=== PATIENT | male | born 1970 | race Caucasian/White ===

== ENCOUNTER 2019-04-24 15:46 | Emergency (ER) | payer OTHER ==
[~2019-04-24] VITALS: Ht 177.8 cm; Wt 84.1 kg
--- NOTE | 2019-04-24 16:24 | ED General ---
General Chief Complaint: Dizziness/Syncope Stated Complaint: LOW BP Source of Information: Patient History of Present Illness Date Seen by Provider: Apr 24, 2019 Time Seen by Provider: 16:19 Initial Comments 48-year-old male apparently has a history of episodic orthostatic hypotension going back at least months if not years Today he was at work he had visual loss and feeling lightheaded sounds like he had a very near syncopal episode but not total loss of consciousness went to the clinic had brief syncope there, sent to ER says he used to have pretty severe chronic diarrhea but has not had that rec ently he's had no nausea vomiting says he's been eating and drinking normally he has not had chest pain shortness of breath palpitations there's been no seizure activity witnessed here on orthostats his standing BP drops though pulse unchanged Allergies and Home Medications Allergies Coded Allergies: prednisolone (Verified Allergy, Unknown, 04/24/19) Patient Home Medication List Home Medication List Reviewed: Yes Review of Systems Review of Systems Constitutional: dizziness; No fever EENTM: vision loss (transient) Respiratory: no symptoms reported Cardiovascular: no symptoms reported Gastrointestinal: no symptoms reported Past Syxemgh-Ivvyck-Ntdecm Hx Patient Social History Recent Foreign Travel: No Contact w/Someone Who Travel: No Physical Exam Vital Signs Vital Signs - First Documented 04/24/19 15:50 Temp 36.4 Pulse 82 Resp 16 B/P (MAP) 143/77 (99) Pulse Ox 98 O2 Delivery Room Air Capillary Refill : Height, Weight, BMI Height: '" Weight: lbs. oz. kg; BMI Method: General Appearance: No Apparent Distress, WD/WN Eyes: Bilateral Eye PERRL, Bilateral Eye EOMI HEENT: Moist Mucous Membranes Neck: Non Tender, Supple Respiratory: Lungs Clear Cardiovascular: Regular Rate, Rhythm Gastrointestinal: Normal Bowel Sounds, Non Tender Progress/Results/Core Measures Suspected Sepsis SIRS Temperature: Pulse: Respiratory Rate: Laboratory Tests 04/24/19 16:10: White Blood Count 12.7H Blood Pressure / Mean: Laboratory Tests 04/24/19 16:10: Creatinine 0.93, Platelet Count 174, Total Bilirubin 0.5 Results/Orders Lab Results Laboratory Tests Test 04/24/19 16:10 04/24/19 16:27 Range/Units White Blood Count 12.7 H 4.3-11.0 10^3/uL Red Blood Count 3.81 L 4.35-5.85 10^6/uL Hemoglobin 11.6 L 13.3-17.7 G/DL Hematocrit 33 L 40-54 % Mean Corpuscular Volume 88 80-99 FL Mean Corpuscular Hemoglobin 30 25-34 PG Mean Corpuscular Hemoglobin Concent 35 32-36 G/DL Red Cell Distribution Width 12.7 10.0-14.5 % Platelet Count 174 130-400 10^3/uL Mean Platelet Volume 10.0 7.4-10.4 FL Neutrophils (%) (Auto) 65 42-75 % Lymphocytes (%) (Auto) 26 12-44 % Monocytes (%) (Auto) 6 0-12 % Eosinophils (%) (Auto) 2 0-10 % Basophils (%) (Auto) 1 0-10 % Neutrophils # (Auto) 8.3 H 1.8-7.8 X 10^3 Lymphocytes # (Auto) 3.3 1.0-4.0 X 10^3 Monocytes # (Auto) 0.8 0.0-1.0 X 10^3 Eosinophils # (Auto) 0.2 0.0-0.3 10^3/uL Basophils # (Auto) 0.1 0.0-0.1 10^3/uL Sodium Level 139 135-145 MMOL/L Potassium Level 4.6 3.6-5.0 MMOL/L Chloride Level 101 98-107 MMOL/L Carbon Dioxide Level 27 21-32 MMOL/L Anion Gap 11 5-14 MMOL/L Blood Urea Nitrogen 24 H 7-18 MG/DL Creatinine 0.93 0.60-1.30 MG/DL Estimat Glomerular Filtration Rate > 60 BUN/Creatinine Ratio 26 Glucose Level 222 H 70-105 MG/DL Calcium Level 9.4 8.5-10.1 MG/DL Corrected Calcium 9.5 8.5-10.1 MG/DL Total Bilirubin 0.5 0.1-1.0 MG/DL Aspartate Amino Transf (AST/SGOT) 17 5-34 U/L Alanine Aminotransferase (ALT/SGPT) 21 0-55 U/L Alkaline Phosphatase 117 40-136 U/L Total Protein 6.9 6.4-8.2 GM/DL Albumin 3.9 3.2-4.5 GM/DL Glucometer 206 H 70-110 MG/DL My Orders Orders - JAMES SAHA MD Iv Heplock-Insert (Order) (04/24/19 15:48) Accucheck Stat ONCE (04/24/19 15:48) Cbc With Automated Diff (04/24/19 15:48) Comprehensive Metabolic Panel (04/24/19 15:48) Ekg Tracing (04/24/19 15:48) Hearing Aid Repair Technician (04/24/19 15:48) Orthostatic Vital Signs (Adult (04/24/19 16:13) Ns Iv 1000 Ml (Sodium Chloride 0.9%) (04/24/19 17:45) Vital Signs/I&O 04/24/19 04/24/19 15:50 16:28 Temp 36.4 Pulse 82 82 80 84 Resp 16 B/P (MAP) 143/77 (99) 139/75 (96) 108/68 (81) 76/54 (61) Pulse Ox 98 O2 Delivery Room Air Capillary Refill : Progress Note : Progress Note Hemogram 11 6 white count 12,700 Patient says he's been told he is anemic in the past its normocytic with an MCV of 88 he's never been advised to take anything for that or have it checked out further he is quite certain that he has not had any dark or tarry stools melena hematemesis etc. glucose is 200 CMP otherwise negative ECG EKG : Comment EKG shows sinus rhythm and rate of 72 no acute changes normal intervals Departure Impression Primary Impression: Dizziness Additional Impression: Orthostatic hypotension Disposition: 01 HOME, SELF-CARE Condition: Improved Departure-Patient Inst. Decision time for Depature: 17:59 Referrals: FRED ROMERO APRN (PCP) Primary Care Physician Patient Instructions: Orthostatic Hypotension (DC) JAMES SAHA MD Apr 24, 2019 16:24 POS
[2019-04-24 16:28] VITALS: BP_SYST 108; BP_SYST 139; BP_SYST 76; BP_DIAS 54; BP_DIAS 68; BP_DIAS 75
[2019-04-24 16:58] LABS: BASOPHILS # (AUTO) 0.1 10^3/uL (0.0-0.1); BASOPHILS % (AUTO) 1 % (0-10); EOSINOPHILS # (AUTO) 0.2 10^3/uL (0.0-0.3); EOSINOPHILS % (AUTO) 2 % (0-10); HEMATOCRIT 33 % (40-54); HEMOGLOBIN 11.6 G/DL (13.3-17.7); LYMPHOCYTES # (AUTO) 3.3 X 10^3 (1.0-4.0); LYMPHOCYTES % (AUTO) 26 % (12-44); MEAN CORPUSCULAR HEMOGLOBIN 30 PG (25-34); MEAN CORPUSCULAR HGB CONC 35 G/DL (32-36); MEAN CORPUSCULAR VOLUME 88 FL (80-99); MONOCYTES # (AUTO) 0.8 X 10^3 (0.0-1.0); MONOCYTES % (AUTO) 6 % (0-12); NEUTROPHILS # (AUTO) 8.3 X 10^3 (1.8-7.8); NEUTROPHILS % (AUTO) 65 % (42-75); PLATELET COUNT 174 10^3/uL (130-400); RED CELL DISTRIBUTION WIDTH 12.7 % (10.0-14.5); WHITE BLOOD COUNT 12.7 10^3/uL (4.3-11.0)
[2019-04-24 17:08] LABS: BUN/CREATININE RATIO 26; CARBON DIOXIDE 27 MMOL/L (21-32); CHLORIDE 101 MMOL/L (98-107); CREATININE SERUM 0.93 MG/DL (0.60-1.30); GFR ESTIMATED > 60; POTASSIUM 4.6 MMOL/L (3.6-5.0); SODIUM 139 MMOL/L (135-145)
[2019-04-24 17:09] LABS: ALANINE AMINOTRANSFERASE 21 U/L (0-55); ALBUMIN 3.9 GM/DL (3.2-4.5); ALKALINE PHOSPHATASE 117 U/L (40-136); BILIRUBIN,TOTAL 0.5 MG/DL (0.1-1.0); CALCIUM 9.4 MG/DL (8.5-10.1); GLUCOSE 222 MG/DL (70-105); TOTAL PROTEIN 6.9 GM/DL (6.4-8.2)
[2019-04-24] MEDS ORDERED: NS IV 1000 ML 1,000 ML IV SCH (17:45)
[2019-04-24 18:37] VITALS: BP 136/83
--- OUTSIDE RECORDS SUMMARY | 2019-05-18 15:31 | XMS REPORT | Continuity of Care Document ---
Author Organization Unknown POS Address Unknown SP Phone Unavailable SP Allergies Active Description Code Type Severity POS Reaction Onset Reported/Identified POS to Patient Clinical Status POS Yes prednisolone [id number] Drug Allergy SP Unknown N/A 04/24/2019 SP Medications There is no data. Problems Date Dx Coded Attending Type Code POS Diagnosed By POS 04/24/2019 JAMES SAHA MD Ot I95. 1 SP HYPOTENSION SP 04/24/2019 JAMES SAHA MD Ot R42 SP AND GIDDINESS SP 04/24/2019 JAMES SAHA MD Ot Z88. 8 SP STATUS TO OTH DRUG/MEDS/BIOL SUB SP Procedures There is no data. Results Test Result Range POS Complete blood count (CBC) with automate d white blood cell (WBC) differential - POS 16:10 Blood leukocytes automated count (number/volume) 12.7 10*3/uL POS 4.3-11.0 SP Blood erythrocytes automated count (number/volume) 3.81 10*6/uL SP 4.35-5.85 SP Venous blood hemoglobin measurement (mass/volume) 11.6 g/dL SP17.7 Blood hematocrit (volume fraction) 33 % 40-54 SP Automated erythrocyte mean corpuscular volume 88 [ foz_us] SP99 Automated erythrocyte mean corpuscular h emoglobin (mass per erythrocyte) SP 30 pg 25-34 SP Automated erythrocyte mean corpuscular h emoglobin concentration measurement SP 35 g/dL 32-36 SP Automated erythrocyte distribution width ratio 12. 7 % 10.0- SP Automated blood platelet count (count/volume) 174 10*3/uL SP400 Automated blood platelet mean volume measurement 10.0 [foz_us] SP 7.4-10.4 SP Automated blood neutrophils/100 leukocytes 65 % 42-75 SP Automated blood lymphocytes/100 leukocytes 26 % 12-44 SP Blood monocytes/100 leukocytes 6 % 0-12 SP Automated blood eosinophils/100 leukocytes 2 % 0-10 SP Automated blood basophils/100 leukocytes 1 % 0-10 SP Blood neutrophils automated count (number/volume) 8.3 10*3 SP7.8 Blood lymphocytes automated count (number/volume) 3.3 10*3 SP4.0 Blood monocytes automated count (number/volume) 0. 8 10*3 SP1.0 Automated eosinophil count 0.2 10*3/uL 0 .0-0.3 SP Automated blood basophil count (count/volume) 0.1 10*3/uL SP0.1 Comprehensive metabolic panel - 04/24/19 16:10 POS Serum or plasma sodium measurement (moles/volume) 139 mmol/L SP 135-145 SP Serum or plasma potassium measurement (moles/volume) 4.6 mmol/L SP 3.6-5.0 SP Serum or plasma chloride measurement (moles/volume) 101 mmol/L SP 98-107 SP Carbon dioxide 27 mmol/L 21-32 SP Serum or plasma anion gap determination (moles/volume) 11 mmol/L SP 5-14 SP Serum or plasma urea nitrogen measurement (mass/volume ) 24 mg/dL SP 7-18 SP Serum or plasma creatinine measurement (mass/volume) 0.93 mg/dL SP 0.60-1.30 SP Serum or plasma urea nitrogen/creatinine mass ratio 26 NRG SP Serum or plasma creatinine measurement w ith calculation of estimated glomerular SP rate > NRG SP Serum or plasma glucose measurement (mass/volume) 222 mg/dL SP105 Serum or plasma calcium measurement (mass/volume) 9.4 mg/dL SP10.1 Serum or plasma total bilirubin measurement (mass/volu me) 0.5 mg/dL SP 0.1-1.0 SP Serum or plasma alkaline phosphatase stephane surement (enzymatic activity/volume) SP 117 U/L 40-136 SP Serum or plasma aspartate aminotransfera se measurement (enzymatic SP 17 U/L 5-34 SP Serum or plasma alanine aminotransferase measurement (enzymatic activity/volume) SP 21 U/L 0-55 SP Serum or plasma protein measurement (mass/volume) 6.9 g/dL SP8.2 Serum or plasma albumin measurement (mass/volume) 3.9 g/dL SP4.5 CALCIUM CORRECTED 9.5 mg/dL 8.5-10.1 SP Capillary blood glucose measurement by g lucometer (mass/volume) - 04/24/19 16:27 POS Capillary blood glucose measurement by glucometer (mas s/volume) 206 POS 70-110 SP Encounters ACCT No. Visit Date/Time Discharge Status POS Pt. Type Provider Facility Loc./Un it POS Complaint POS [id number] 04/24/2019 15:47:00 019 18:35:00 SP DIS Emergency MARIA A RIVERA, JAMES URBINA - [place] [facility] FS LOW BP SP
== END 2019-04-24 18:35 | disposition home or self-care (01) ==
LOC: ER FS 15:47
DX: I95.1 Orthostatic hypotension (principal); Z88.8 Allergy status to other drugs, medicaments and biological substances
CPT/HCPCS: 36415; 80053; 82962; 85025; 93005; 96360

== ENCOUNTER → 2020-06-08 | Outpatient (CLI) | payer OTHER | LOC: WOUNDCARE 12:49 | PROVIDERS: ATTEND Surgery | DX: L84 Corns and callosities (principal); E11.42 Type 2 diabetes mellitus with diabetic polyneuropathy; E11.65 Type 2 diabetes mellitus with hyperglycemia; I70.203 Unspecified atherosclerosis of native arteries of extremities, bilateral legs | CPT/HCPCS: 99214 ==

== ENCOUNTER → 2020-06-14 | Outpatient (CLI) | payer OTHER | LOC: WOUNDCARE 15:11 | PROVIDERS: ATTEND Surgery | DX: L84 Corns and callosities (principal); E11.65 Type 2 diabetes mellitus with hyperglycemia; E11.42 Type 2 diabetes mellitus with diabetic polyneuropathy; I70.203 Unspecified atherosclerosis of native arteries of extremities, bilateral legs | CPT/HCPCS: 99212 ==

== ENCOUNTER → 2020-09-05 | Outpatient (CLI) | payer OTHER | LOC: WOUNDCARE 12:57 | PROVIDERS: ATTEND Surgery | DX: L84 Corns and callosities (principal) | CPT/HCPCS: 99212 ==

== ENCOUNTER → 2020-09-05 | Outpatient (CLI) | payer OTHER ==
[2020-09-05 09:22] LABS: BUN/CREATININE RATIO 24; CARBON DIOXIDE 29 MMOL/L (21-32); CHLORIDE 96 MMOL/L (98-107); GFR ESTIMATED > 60; POTASSIUM 4.5 MMOL/L (3.6-5.0); SODIUM 134 MMOL/L (135-145)
[2020-09-05 09:26] LABS: GLUCOSE 406 MG/DL (70-105)
[2020-09-05 09:27] LABS: ALANINE AMINOTRANSFERASE 13 U/L (0-55); ALBUMIN 3.7 GM/DL (3.2-4.5); ALKALINE PHOSPHATASE 132 U/L (40-136); BILIRUBIN,TOTAL 0.2 MG/DL (0.1-1.0); CALCIUM 9.2 MG/DL (8.5-10.1); TOTAL PROTEIN 6.6 GM/DL (6.4-8.2)
[2020-09-05 15:09] LABS: CHOLESTEROL 215 MG/DL (< 200); HDL CHOLESTEROL 26 MG/DL (40-60); TRIGLYCERIDES 509 MG/DL (<150); VLDL CHOLESTEROL 102 MG/DL (5-40)
== END ==
LOC: LAB FS 08:24
PROVIDERS: ATTEND Internal Medicine Cardiovascular Disease
DX: E78.2 Mixed hyperlipidemia (principal)
CPT/HCPCS: 36415; 80053; 80061

== ENCOUNTER → 2020-09-28 | Outpatient (CLI) | payer OTHER | LOC: CARD 11:14 | PROVIDERS: ATTEND Internal Medicine Cardiovascular Disease | DX: I11.9 Hypertensive heart disease without heart failure (principal) | CPT/HCPCS: 93306 ==

== ENCOUNTER → 2020-11-02 | Outpatient (CLI) | payer OTHER | LOC: CARD 14:05 | PROVIDERS: ATTEND Physician Assistant | DX: R07.9 Chest pain, unspecified (principal) ==

== ENCOUNTER → 2020-12-22 | Outpatient (CLI) | payer OTHER ==
--- NOTE | 2020-12-22 17:13 | Diagnostic Imaging Report ---
PROCEDURE: MR imaging left lower extremity without contrast. TECHNIQUE: Multiplanar, multisequence non contrast enhanced MR imaging of the left lower extremity was accomplished. INDICATION: Plantar ulcer at the base of the 3rd MTP joint. COMPARISON: None available. FINDINGS: The small superficial plantar ulcer measures approximately 9 x 7 mm with a shallow base. There is no associated T2 hyperintense abscess or sinus tract. No T1 hypointense marrow replacement or T2 hyperintense bone marrow edema signal that would indicate osteomyelitis. No intermetatarsal fluid collection. There is a small superficial fluid collection along the plantar surface of the medial sesamoid likely due to adventitial bursa formation. IMPRESSION: 1. No osteomyelitis within the forefoot. 2. No abscess associated with the small shallow ulcer at the plantar aspect of the 3rd MTP joint. 3. Incidental note of a small adventitial bursa superficial to the medial hallux sesamoid. Dictated by: Dictated on workstation # [id number]
== END ==
LOC: RAD 14:45
PROVIDERS: ATTEND Podiatrist Foot & Ankle Surgery
DX: L97.829 Non-pressure chronic ulcer of other part of left lower leg with unspecified severity (principal); L03.116 Cellulitis of left lower limb; E11.40 Type 2 diabetes mellitus with diabetic neuropathy, unspecified

== ENCOUNTER → 2021-01-19 | Outpatient (CLI) | payer OTHER | LOC: WOUNDCARE 12:45 | PROVIDERS: ATTEND Surgery | DX: E11.621 Type 2 diabetes mellitus with foot ulcer (principal); E11.42 Type 2 diabetes mellitus with diabetic polyneuropathy; L97.522 Non-pressure chronic ulcer of other part of left foot with fat layer exposed; I70.245 Atherosclerosis of native arteries of left leg with ulceration of other part of foot; E11.65 Type 2 diabetes mellitus with hyperglycemia; T65.222D Toxic effect of tobacco cigarettes, intentional self-harm, subsequent encounter; F17.218 Nicotine dependence, cigarettes, with other nicotine-induced disorders | CPT/HCPCS: A6260; G0463; 99213 ==

== ENCOUNTER → 2021-01-27 | Outpatient (CLI) | payer OTHER | LOC: WOUNDCARE 07:51 | PROVIDERS: ATTEND Orthopaedic Surgery Hand Surgery | DX: E11.621 Type 2 diabetes mellitus with foot ulcer (principal); E11.42 Type 2 diabetes mellitus with diabetic polyneuropathy; L97.522 Non-pressure chronic ulcer of other part of left foot with fat layer exposed; I70.245 Atherosclerosis of native arteries of left leg with ulceration of other part of foot; E11.65 Type 2 diabetes mellitus with hyperglycemia; T65.222D Toxic effect of tobacco cigarettes, intentional self-harm, subsequent encounter; E11.52 Type 2 diabetes mellitus with diabetic peripheral angiopathy with gangrene; F17.218 Nicotine dependence, cigarettes, with other nicotine-induced disorders | CPT/HCPCS: 11042; G0463 ==

== ENCOUNTER 2021-02-08 10:28 | Day surgery (SDC) | payer OTHER ==
[2021-02-08] VITALS (15 sets, daily range): BP systolic 108–157; BP diastolic 73–88
[~2021-02-08] VITALS: Ht 175 cm; Wt 8.3 kg
[2021-02-08] MEDS ORDERED: LIDOCAINE 1% INJ 20 ML 20 ML VIAL ONE (10:48)
[2021-02-08] MEDS ORDERED: NS IV 1000 ML 1,000 ML ONE (10:48)
[2021-02-08] MEDS ORDERED: HEParin (CATH LAB) 2,000 ML IV ONE (10:48)
[2021-02-08] MEDS ORDERED: NS IV 1000 ML 1,000 ML IV SCH (11:15)
[2021-02-08] MEDS ORDERED: diphenhydrAMINE 50 MG/ML INJ (BENADRYL) ONE (11:18)
[2021-02-08 11:25] LABS: HEMATOCRIT 38 % (40-54); HEMOGLOBIN 13.1 g/dL (13.3-17.7); MEAN CORPUSCULAR HEMOGLOBIN 30 pg (25-34); MEAN CORPUSCULAR HGB CONC 34 g/dL (32-36); MEAN CORPUSCULAR VOLUME 87 fL (80-99); MEAN PLATELET VOLUME 9.7 fL (9.0-12.2); PLATELET COUNT 231 10^3/uL (130-400); WHITE BLOOD COUNT 12.7 10^3/uL (4.3-11.0)
[2021-02-08] MEDS ORDERED: METF-865 PO (11:26)
[2021-02-08] MEDS ORDERED: CLOP75TA28 PO (11:26)
[2021-02-08] MEDS ORDERED: RT-ALBUINH IH (11:26)
[2021-02-08] MEDS ORDERED: SIMV40TA25 PO (11:26)
[2021-02-08] MEDS ORDERED: INSU100I34 SQ (11:26)
[2021-02-08] MEDS ORDERED: ASPI-1238 PO (11:26)
[2021-02-08] MEDS ORDERED: OMEP40CA6 PO (11:26)
[2021-02-08] MEDS ORDERED: MTP25TSR PO (11:26)
[2021-02-08] MEDS ORDERED: LISI2.5T13 PO (11:26)
[2021-02-08] MEDS ORDERED: GABA300C PO (11:26)
[2021-02-08 11:36] LABS: INR 1.1 (0.8-1.4); PROTHROMBIN TIME PATIENT 14.7 SEC (12.2-14.7)
--- NOTE | 2021-02-08 11:36 | Diagnostic Imaging Report ---
EXAMINATION: Chest 1 view HISTORY: History of smoking, preprocedural evaluation COMPARISON: None available. FINDINGS: Heart size and pulmonary vasculature are normal. The lungs are clear without consolidation, pleural effusion, or pneumothorax. Degenerative changes of the thoracic spine. Osseous structures are otherwise intact. IMPRESSION: 1. No acute radiographic abnormality in the chest. Dictated by: Dictated on workstation # [id number]
[2021-02-08 11:47] LABS: ALBUMIN 3.7 GM/DL (3.2-4.5); BILIRUBIN,TOTAL 0.5 MG/DL (0.1-1.0); CREATININE SERUM 1.1 MG/DL (0.60-1.30); POTASSIUM 4.5 MMOL/L (3.6-5.0); TOTAL PROTEIN 6.8 GM/DL (6.4-8.2)
[2021-02-08] MEDS ORDERED: inSUlin (REGULAR) HUMAN 1 UNIT/0.01 ML (CHARGE PER UNIT) ONE (11:55)
[2021-02-08] MEDS ORDERED: inSUlin (REGULAR) HUMAN 1 UNIT/0.01 ML (CHARGE PER UNIT) SC ONE (12:00)
[2021-02-08] MEDS ORDERED: fentaNYL INJ 100 MCG/2 ML AMP ONE ×2 (12:02→12:53)
[2021-02-08] MEDS ORDERED: MIDAZOLAM 5 MG/5 ML (VERSED) VIAL ONE ×2 (12:02→12:53)
[2021-02-08] MEDS ORDERED: HEParin 1000 UNIT/ML (10ML VIAL) FOR BOLUS ONE (12:42)
[2021-02-08] MEDS ORDERED: NITRO DRIP 25000 MCG/D5W 250 ML IV ONE (12:52)
[2021-02-08] MEDS ORDERED: ASPIRIN 325 MG (5 GR) TABLET ONE (13:44)
[2021-02-08] MEDS ORDERED: CLOPIDOGREL 300 MG (PLAVIX) TABLET PO ONE (13:45)
[2021-02-08] MEDS ORDERED: PATIENT MAY USE OWN MEDS, ALL PO SCH (14:00)
[2021-02-08] MEDS ORDERED: RT-ALBUTEROL SULF 2.5 MG/3 ML PRE-MIX VIAL IH PRN (14:00)
--- NOTE | 2021-02-08 14:02 | Conscious Sedation/ASA ---
Conscious Sedation Pre-Proced Time 12:00 ASA Score 3 For ASA 3 and 4: Consider anesthesia and medical clearance. Also, for patients with a history of failed moderate sedation consider anesthesia. Airway Lungs Heart ASA score ASA 1: a normal healthy patient ASA 2: a patient with a mild systemic disease (mid diabetes, controlled hypertension, obesity x ASA 3: a patient with a severe systemic disease that limits activity (angina, COPD, prior Myocardial infarction) ASA 4: a patient with an incapacitating disease that is a constant threat to life (CHF, renal failure) ASA 5: a moribund patient not expected to survive 24 hrs. (ruptured aneurysm) ASA 6: a declared brain- patient whose organs are being harvested. For emergent operations, add the letter E after the classification Mallampati Classification Grade 3 Sedation Plan Analgesia, Amnesia, Plan communicated to team members, Discussed options with patient/fam, Discussed risks with patient/fam The patient is an appropriate candidate to undergo the planned procedure, sedation, and anesthesia. The patient immediately re-assessed prior to indication. ANSELMO DAVID MD Feb 08, 2021 14:02
--- NOTE | 2021-02-08 14:12 | Peripheral Report ---
Peripheral Report Physician (s)/[place] Marina (s) Physician ANSELMO DAVID MD Pre-Procedure Diagnosis Pre-Procedure Diagnosis: Critical limb ischemia Post-Procedure Note Procedure Start Date: Feb 08, 2021 Name of Procedure: Abdominal aortogram with bilateral runoff Third order Additional imaging x3 Stent to the left SFA DE ICER INSTALLER to the left posterior tibial DE ICER INSTALLER to the left peroneal DE ICER INSTALLER to the left anterior tibial Findings/Procedure Note PROCEDURE NOTE: 50 years old gentleman with severe peripheral arterial disease, had intervention done in [place] in the past, referred to me due to critical limb ischemia and 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 SALENA was abnormal After explaining the procedure to the patient, all pros and cons were explained, all questions were answered. The patient signed the consent and then he was placed on the cardiac catheterization laboratory. The patient was placed on the cardiac catheterization laboratory. Groin was prepped SL fashion local anesthesia was used. Sheath placed in the right femoral artery, runoff to the right leg was done through the sheath. I used a rim catheter to cross over the next change it to long straight catheter placed in the left proximal SFA and runoff to the left leg was done then advanced into the distal SFA and placed at the trifurcation and angiogram was done at the level of the trifurcation then at the level of the foot. Intervention was initiated. Patient was given 6000 units of heparin, sheath was exchanged into 6 [place] 55 cm sheath, I started with advancement of a command 18 in the posterior tibial artery and did balloon angioplasty using 3 x 40 to the posterior tibial artery and tibioperoneal trunk then catheter was removed and I advanced mini 18 catheter to the tibioperoneal trunk and did angiogram then advance it into the peroneal artery and did angiogram then I used command 14 wi re and advanced it in the peroneal artery then placed 2 x 120 [place] balloon and did 2 inflation in the peroneal artery then retracted the balloon and advanced command wire to the anterior tibial artery and used the same balloon to do another 2 inflation in the anterior tibial artery, nitroglycerin was given then repeat angiogram showed excellent results, I reevaluated the lesion in the SFA and decided to proceed with intervention did predilatation with 6 x 60 balloon then deployed superior 6 x 40 and angiogram showed excellent results. The sheath was exchanged again to a short 6 [place] sheath then I advanced pigtail catheter to the abdominal aorta just above the bifurcation and did angiogram to evaluate the bifurcation. At the end of the procedure sheath was removed, closure device deployed. FINDINGS: Left lower extremity: Mild atherosclerotic plaques in the left common iliac and left common femoral artery nonobstructive disease. Severe stenosis in the mid left SFA with successful deployment of superior 6 x 40 with excellent results Severe stenosis at the left tibioperoneal trunk with successful balloon angioplasty using [place] 3 x 60 Severe stenosis at the left posterior tibial artery with successful balloon angioplasty using [place] 3 x 60 Subtotal occlusion of the left peroneal artery with successful balloon angioplasty using [place] 2 x 120 Subtotal occlusion of the left anterior tibial artery with successful balloon angioplasty using [place] 2 x 120. Post intervention there was brisk flow down to the foot with some recoiling at the tibial arteries Right lower extremity: Atherosclerotic plaques in the right common iliac and common femoral artery nonobstructive disease Totally occluded stent in the mid right SFA reconstructed by collaterals with slow flow down to the trifurcation CONCLUSIONS: 1. Successful complex intervention using stent superior 6 x 40 to the mid SFA and balloon angioplasty to the tibioperoneal trunk, posterior tibial, peroneal artery and anterior tibial arteries of the left leg with excellent results 2. Totally occluded stent in the mid right SFA reconstructed by collateral with slow flow will require intervention at a later point 3. Calcification in the abdominal aorta and the bifurcation, nonobstructive disease DISCUSSION AND RECOMMENDATIONS: Continue to maximize medical therapy, discussed smoking cessation and compliance with medication and tight diabetic control in addition patient will require another evaluation and intervention on the right leg Anesthesia Type: Conscious Sedation Estimated blood loss (mL): 35 ml Contrast Amount: 110 ml Total Radiation Dose: 312 mGy Post-Procedure Diagnosis Post-operative diagnosis: Critical limb ischemia Peripheral arterial disease Hypertension Hyperlipidemia ANSELMO DAVID MD Feb 08, 2021 14:12
[2021-02-08] MEDS: NS IV 1000 ML 1,000 ML IV SCH ×2 (14:21→17:07)
[2021-02-08] MEDS: inSUlin ASPART (NovoLOG) 1 UNIT/0.01 ML (CHARGE PER UNIT) SC SCH ×2 (16:44→21:00)
[2021-02-08] MEDS ORDERED: GABAPENTIN 300 MG (NEURONTIN) CAP PO SCH (21:00)
[2021-02-09] MEDS ORDERED: NON-FORMULARY MEDICATION 1 EA EA (Omeprazole 40 MG) PO SCH (09:00)
[2021-02-09] MEDS ORDERED: lisINopril 5 MG (PRINIVIL) TABLET PO SCH (09:00)
[2021-02-09] MEDS ORDERED: PANTOPRAZOLE 40 MG (PROTONIX) TAB PO SCH (09:00)
[2021-02-09] MEDS ORDERED: ASPIRIN E.C. 81 MG (ECOTRIN) TAB PO SCH (09:00)
[2021-02-09] MEDS ORDERED: CLOPIDOGREL 75 MG (PLAVIX) TABLET PO SCH (09:00)
[2021-02-09] MEDS ORDERED: SIMvastatin 40 MG (ZOCOR) TAB PO SCH (09:00)
[2021-02-09] MEDS ORDERED: NON-FORMULARY MEDICATION 1 EA EA (Lisinopril 2.5 MG) PO SCH (09:00)
[2021-02-22] MEDS ORDERED: ASPI-999 PO (09:18)
== END 2021-02-08 21:10 | disposition left against medical advice (07) ==
LOC: CATH 10:28 → CSD 14:05 → CATH 21:10
PROVIDERS: ATTEND Internal Medicine Cardiovascular Disease
DX: I70.229 Atherosclerosis of native arteries of extremities with rest pain, unspecified extremity (principal); T82.856A Stenosis of peripheral vascular stent, initial encounter; I70.0 Atherosclerosis of aorta; I77.1 Stricture of artery; I10 Essential (primary) hypertension; E78.5 Hyperlipidemia, unspecified; E11.9 Type 2 diabetes mellitus without complications; I65.23 Occlusion and stenosis of bilateral carotid arteries; H54.40 Blindness, one eye, unspecified eye; E78.2 Mixed hyperlipidemia; F17.210 Nicotine dependence, cigarettes, uncomplicated; Z79.02 Long term (current) use of antithrombotics/antiplatelets; Z79.84 Long term (current) use of oral hypoglycemic drugs; Z83.3 Family history of diabetes mellitus
CPT/HCPCS: 36247; 36248; 37228; 37232; 71045; 75716; 80053; 80061; 82947; 85027; 85610; 85730; 87081; C1725 ×3; C1760; C1769; C1876; C1887 ×2; C1894 ×2; 36415

== ENCOUNTER 2021-02-15 13:13 | Observation (INO) | payer OTHER ==
[~2021-02-15] VITALS: Ht 177.8 cm; Wt 81.6 kg
[~2021-02-15 13:13] MED LIST: ASPI-1238 PO; CLOP75TA28 PO; GABA300C PO; INSU100I34 SQ; LISI2.5T PO; METF-865 PO; MTP25TSR PO; OMEP40CA6 PO; RT-ALBUINH IH; SIMV40TA25 PO
--- NOTE | 2021-02-15 13:42 | ED General ---
General Chief Complaint: Neuro-Stroke Like Symptoms Stated Complaint: STROKE LIKE SYMPTOMS Source of Information: Patient, Old Records, Spouse History of Present Illness Date Seen by Provider: Feb 15, 2021 Time Seen by Provider: 13:15 Initial Comments 50-year-old male presenting by private vehicle with complaints of right-sided weakness present since approximately 5 PM on 14 February. He states he will think of similar symptoms he comes back. He was still having symptoms this afternoon and was brought to the emergency department. He did have a fall on the at home. He denies any anxiety. He has been more sleepy recently. He recently had stenting of his leg to help with peripheral vascular disease. He has a stent in his right leg that has collateral blood flow but will still need to be managed because he has complete blockage of the stent itself. He denies chest pain, headache, vision change, nausea, vomiting. He has decreased sensation to right arm and leg compared to the left Timing/Duration: 12-24 Hours (since about 1700 on 02/14) Associated Systoms: No Chest Pain; Cough (intermittent); No Diaphoresis, No Fever/Chills, No Headaches, No Loss of Appetite; Malaise; No Nausea/Vomiting, No Rash, No Seizure, No Shortness of Air, No Syncope; Weakness (right sided) Allergies and Home Medications Allergies Coded Allergies: Fish Containing Products (Verified Allergy, Severe, 02/08/21) "BLACKS OUT" lidocaine (Verified Allergy, Unknown, 02/08/21) FACE SWELLS FROM DENTAL PROCEDURE prednisolone (Verified Allergy, Unknown, 04/24/19) Home Medications Albuterol Sulfate 1 Puff Puff, 1-2 PUFF IH Q4H PRN for SHORTNESS OF BREATH, (Reported) Aspirin 81 Mg Tablet.dr, 81 MG PO DAILY, (Reported) Clopidogrel Bisulfate 75 Mg Tablet, 75 MG PO DAILY, (Reported) Gabapentin 300 Mg Capsule, 300 MG PO HS, (Reported) Insulin Glargine,Hum.rec.anlog 100 Unit/1 Ml Insuln.pen, 6 UNIT SQ DAILY, (Reported) Lisinopril 2.5 Mg Tablet, 2.5 MG PO DAILY, (Reported) Metformin HCl 500 Mg Tab.er.24h, 500 MG PO BID, (Reported) Metoprolol Succinate 25 Mg Tab.er.24h, 25 MG PO DAILY, (Reported) Omeprazole 40 Mg Capsule.dr, 40 MG PO DAILY, (Reported) Simvastatin 40 Mg Tablet, 40 MG PO DAILY, (Reported) Patient Home Medication List Home Medication List Reviewed: Yes Review of Systems Review of Systems Constitutional: see HPI EENTM: see HPI Respiratory: see HPI Cardiovascular: see HPI Gastrointestinal: see HPI Genitourinary: no symptoms reported Musculoskeletal: other (bilateral leg pains from recent procedures) Psychiatric/Neurological: Paresthesia (decreased sensation right arm and leg compared to the left), Weakness (right arm and leg) Past Krwluhu-Glxibt-Rtgwwg Hx Seasonal Allergies Seasonal Allergies: No Past Medical History Surgery/Hospitalization HX: EYE SX X2, LEFT RING FINGER AMPUTATION, 2 PREVIOUS STENTS Surgeries: Yes (finger amputation, eye surgery) Respiratory: No Cardiac: No Neurological: No Genitourinary: No Gastrointestinal: No Musculoskeletal: No Endocrine: Yes Diabetes, Insulin dep HEENT: No Cancer: No Psychosocial: No Integumentary: No Physical Exam Vital Signs Vital Signs - First Documented 02/15/21 13:20 Temp 36.6 Pulse 89 Resp 16 B/P (MAP) 133/89 (104) Pulse Ox 99 O2 Delivery Room Air Capillary Refill : Height, Weight, BMI Height: '" Weight: lbs. oz. kg; 27.10 BMI Method: General Appearance: Chronically ill HEENT: PERRL/EOMI; No Pharynx Normal (poor dentition) Neck: Full Range of Motion, Supple; No Carotid Bruit Respiratory: Chest Non Tender, Lungs Clear, Normal Breath Sounds Cardiovascular: Regular Rate, Rhythm, Normal Peripheral Pulses Gastrointestinal: Normal Bowel Sounds, No Pulsatile Mass, Non Tender, Soft Extremity: Pedal Edema (1+ BLE), Slow Capillary Refill, Other (tender to palpation left leg from recent stenting) Neurologic/Psychiatric: Alert, Oriented x3, Facial Droop (right side), Motor Weakness, Sensory Deficit Skin: Warm/Dry Progress/Results/Core Measures Suspected Sepsis SIRS Temperature: Pulse: Respiratory Rate: Laboratory Tests 02/15/21 13:25: White Blood Count 6.5 Blood Pressure / Mean: Laboratory Tests 02/15/21 13:25: Creatinine 1.17, INR Comment 1.1, Platelet Count 192, Total Bilirubin 0.3 Results/Orders Lab Results Laboratory Tests Test 02/15/21 13:24 02/15/21 13:25 Range/Units Glucometer 324 H 70-110 MG/DL White Blood Count 6.5 4.3-11.0 10^3/uL Red Blood Count 3.98 L 4.30-5.52 10^6/uL Hemoglobin 11.7 L 13.3-17.7 g/dL Hematocrit 35 L 40-54 % Mean Corpuscular Volume 87 80-99 fL Mean Corpuscular Hemoglobin 29 25-34 pg Mean Corpuscular Hemoglobin Concent 34 32-36 g/dL Red Cell Distribution Width 13.3 10.0-14.5 % Platelet Count 192 130-400 10^3/uL Mean Platelet Volume 9.5 9.0-12.2 fL Immature Granulocyte % (Auto) 1 % Neutrophils (%) (Auto) 56 42-75 % Lymphocytes (%) (Auto) 28 12-44 % Monocytes (%) (Auto) 14 H 0-12 % Eosinophils (%) (Auto) 1 0-10 % Basophils (%) (Auto) 1 0-10 % Neutrophils # (Auto) 3.7 1.8-7.8 X 10^3 Lymphocytes # (Auto) 1.8 1.0-4.0 X 10^3 Monocytes # (Auto) 0.9 0.0-1.0 X 10^3 Eosinophils # (Auto) 0.0 0.0-0.3 10^3/uL Basophils # (Auto) 0.0 0.0-0.1 10^3/uL Immature Granulocyte # (Auto) 0.0 0.0-0.1 10^3/uL Neutrophils % (Manual) 52 % Lymphocytes % (Manual) 18 % Monocytes % (Manual) 11 % Eosinophils % (Manual) 1 % Band Neutrophils 11 % Atypical Lymphocytes 7 % Blood Morphology Comment NORMAL Prothrombin Time 14.4 12.2-14.7 SEC INR Comment 1.1 0.8-1.4 Activated Partial Thromboplast Time 40 H 24-35 SEC Sodium Level 133 L 135-145 MMOL/L Potassium Level 4.2 3.6-5.0 MMOL/L Chloride Level 98 98-107 MMOL/L Carbon Dioxide Level 25 21-32 MMOL/L Anion Gap 10 5-14 MMOL/L Blood Urea Nitrogen 18 7-18 MG/DL Creatinine 1.17 0.60-1.30 MG/DL Estimat Glomerular Filtration Rate 66 BUN/Creatinine Ratio 15 Glucose Level 344 H 70-105 MG/DL Calcium Level 8.5 8.5-10.1 MG/DL Corrected Calcium 9.0 8.5-10.1 MG/DL Total Bilirubin 0.3 0.1-1.0 MG/DL Aspartate Amino Transf (AST/SGOT) 22 5-34 U/L Alanine Aminotransferase (ALT/SGPT) 14 0-55 U/L Alkaline Phosphatase 105 40-136 U/L Troponin I < 0.30 <0.30 NG/ML Total Protein 6.2 L 6.4-8.2 GM/DL Albumin 3.4 3.2-4.5 GM/DL My Orders Orders - EULALIA MACKAY MD Cbc With Automated Diff (02/15/21 13:27) Protime With Inr (02/15/21 13:27) Partial Thromboplastin Time (02/15/21 13:27) Comprehensive Metabolic Panel (02/15/21 13:27) Troponin I Fs (02/15/21 13:27) Ua Culture If Indicated (02/15/21 13:27) Chest 1 View Ap/Pa Only (02/15/21 13:27) Ekg Tracing (02/15/21 13:27) Nothing By Mouth (02/15/21 Lunch) Accucheck Stat ONCE (02/15/21 13:27) Ed Iv/Invasive Line Start (02/15/21 13:27) Vital Signs Stroke Patient Q15M (02/15/21 13:27) Ct Head Wo-R/O Stroke (02/15/21 13:27) O2 (02/15/21 13:27) Intake & Output 06,14,22 (02/15/21 13:27) Monitor-Rhythm Ecg Trace Only (02/15/21 13:27) Dysphagia Screening Tool (02/15/21 13:27) Drug Screen Stat (Urine) (02/15/21 13:30) Ct Angio Head/Neck (02/15/21 14:05) Iohexol Injection (Omnipaque 350 Mg/Ml 1 (02/15/21 14:15) Received Contrast (Hold Metformin- Contr (02/15/21 14:15) Sodium Chloride Flush (Catheter Flush Sy (02/15/21 14:15) Ns (Ivpb) (Sodium Chloride 0.9% Ivpb Bag (02/15/21 14:15) Manual Differential (02/15/21 13:25) Medications Given in ED Current Medications Medications Dose Ordered Sig/[place] Route Start Time Stop Time Status Last Admin Dose Admin Iohexol 100 ml ONCE ONCE IV 02/15/21 14:15 02/15/21 15:04 DC 02/15/21 14:29 75 ML Sodium Chloride 10 ml NEEDED PRN IV 02/15/21 14:15 02/15/21 14:29 10 ML Sodium Chloride 100 ml ONCE ONCE IV 02/15/21 14:15 02/15/21 15:04 DC 02/15/21 14:29 100 ML Vital Signs/I&O 02/15/21 13:20 Temp 36.6 Pulse 89 Resp 16 B/P (MAP) 133/89 (104) Pulse Ox 99 O2 Delivery Room Air Capillary Refill : Progress Note #1: Progress Note check CT scan of head to evaluate for stroke or hemorrhage. labs and ECG with CXR. Pt inconsistent with exam and with using his right arm and leg. he will try or start to use the arm and leg then lets them drop. not very cooperative with rest of exam. Progress Note #2: Progress Note CT head without acute process to account for his symptoms. Labs stable with hyperglycemia but no acute significant abnormality otherwise. Will add on CT angiogram of head and neck to look for large vessel disease or signs of clot that might be able to go to stroke center and have clot retrieval. NIHSS 11 but pt was not very cooperative with exam and was inconsistent in some of his interactions and testing. Progress Note #3: Progress Note CT angiogram of head and neck negative for large vessel occlusion. D/w dermatology nurse practitioner stroke neurologist at through the Consult line and she recommends MRI and admit for stroke work up. Plavix and aspirin for anti-platelet therapy. May need therapy if weakness becomes more persistent. 1601 d/w Dr. Woodruff dermatology nurse practitioner for [facility] and she accepted pt for observation stay to get MRI and further work up for stroke/TIA. By the time reviewed results and need for admit pt was moving his right arm and leg without difficulty but still felt it was a little numb. ECG Initial ECG Impression Date: Feb 15, 2021 Initial ECG Impression Time: 13:58 Initial ECG Rate: 85 Initial ECG Rhythm: Normal Sinus Initial ECG Comparisson: Unchanged Comment Normal sinus rhythm with a heart rate of 85 bpm. He does have tremoring artifact on the tracing. No acute ST elevation. QT interval 355 ms with a QTc interval 422 ms. Appears stable from prior tracings. Diagnostic Imaging Diagonstic Imaging: CT Plain Films/CT/US/NM/MRI: head Comments NAME: JENNIFER LAM [employer] REC#: [id number] PT STATUS: REG ER : 1970 PHYSICIAN: EULALIA MACKAY MD ADMIT DATE: 02/15/21/ER FS Draft Date of Exam:02/15/21 CT HEAD WO-R/O STROKE PROCEDURE: CT head without, r/o stroke. TECHNIQUE: Multiple contiguous axial images were obtained through the brain without the use of intravenous contrast. Auto Exposure Controls were utilized during the CT exam to meet ALARA standards for radiation dose reduction. INDICATION: Right-sided weakness. COMPARISON: No prior studies are available for comparison. FINDINGS: The ventricles and sulci are somewhat prominent for the patient's age, consistent with some mild cerebral atrophy. No sulcal effacement or midline shift is identified. No acute intra-axial or extra-axial hemorrhage is detected. The cisterns are patent. The visualized paranasal sinuses demonstrate some trace fluid in the maxillary sinuses bilaterally. There is opacification of multiple ethmoid air cells. IMPRESSION: 1. Paranasal sinus disease. 2. No acute intracranial process is detected. Dictated on workstation # [id number] Dict: 02/15/21 1349 Trans: 02/15/21 1352 [id number] Interpreted by: NINOSKA MENDEZ MD Electronically signed by: Diagonstic Imaging: Xray Plain Films/CT/US/NM/MRI: chest Comments [facility]. [place], [place] NAME: JENNIFER LAM [facility] REC#: [id number] PT STATUS: REG ER : 1970 PHYSICIAN: EULALIA MACKAY MD ADMIT DATE: 02/15/21/ER FS Signed Date of Exam:02/15/21 CHEST 1 VIEW AP/PA ONLY INDICATION: Cough and weakness. COMPARISON: Comparison made with prior examination from 02/08/2021. FINDINGS: The heart size, mediastinal configuration, and pulmonary vascularity are within normal limits. There is no pleural effusion, pneumothorax, or pneumonia. The osseous structures are unremarkable. IMPRESSION: No acute cardiopulmonary abnormality. Dictated by: Dictated on workstation # [id number] Dict: 02/15/21 1355 Trans: 02/15/21 1402 [id number] Interpreted by: SINDHU MAGALLANES MD Electronically signed by: SINDHU MAGALLANES MD 02/15/21 1402 Diagonstic Imaging: CT Plain Films/CT/US/NM/MRI: head (and neck) Comments NAME: JENNIFER LAM [facility] REC#: [id number] PT STATUS: REG ER : 1970 PHYSICIAN: EULALIA MACKAY MD ADMIT DATE: 02/15/21/ER FS Draft Date of Exam:02/15/21 CT ANGIO HEAD/NECK PROCEDURE: CT angiography of the head and CT angiography of the neck with and without contrast. TECHNIQUE: Contiguous noncontrast images were obtained from the skull base through the vertex. After intravenous contrast administration, helical CT angiography of the neck was performed. Source data was reformatted into 3D MIP projections. Delayed post contrast acquisition was also obtained. Auto Exposure Controls were utilized during the CT exam to meet ALARA standards for radiation dose reduction. INDICATION: Right-sided weakness. The delayed postcontrast imaging through the brain shows no enhancing lesion. CTA NECK: There is a three-vessel branching pattern to the aortic arch. A right common carotid artery is widely patent. The left common carotid artery is widely patent. Both carotid bifurcations are unremarkable. A right internal carotid artery appears to be patent. Left internal carotid artery is patent. The vertebral arteries appear to be codominant. No stenosis is identified. CTA HEAD: The basilar artery is patent. Right and left posterior cerebral arteries appear to be widely patent. The M1 and M2 branches of the right and left middle cerebral arteries appear to be patent. No large branch occlusion or thromboembolism is identified. Right and left anterior cerebral arteries appear to be patent. IMPRESSION: Unremarkable CT angiogram of the head and neck. No large branch occlusion or thromboembolism is identified. Dictated on workstation # [id number] Dict: 02/15/21 1437 Trans: 02/15/21 1448 [facility] [id number] Interpreted by: NINOSKA MENDEZ MD Electronically signed by: Departure Communication (Admissions) Time/Spoke to Admitting Phy: 16:01 d/w Dr. Woodruff for [facility] service and will place in observation status for MRI brain and stroke work up as well as he might need therapy for right sided weakness and numbness that comes and goes. [address] Woodruff that the pt and spouse were insistent that they were going to take private vehicle and drive down to [place] for admit. Impression Primary Impression: Acute right-sided muscle weakness Additional Impressions: Numbness on right side Transient ischemic attack Disposition: 30 STILL A PATIENT Condition: Stable Admissions Decision to Admit Reason: Admit from ER (General) Decision to Admit/Date: Feb 15, 2021 Time/Decision to Admit Time: 16:01 Departure-Patient Inst. Referrals: [facility] (PCP) Primary Care Physician NIH Stroke Scale NIH Stroke Scale NIH : Select: Initial Level of Consciousness: 0=Alert Level of Consciousness-Questio: 1=Answers one question LOC Commands: 0=Performs both tasks Visual Aleman: 0=No visual loss Facial Movement (Facial Paresi: 1=Minor paralysis Motor Function-Arms Right: 3=No effort/gravity Motor Function-Arms Left: 0=No drift Motor Function-Legs Right: 3=No effort/gravity Motor Function-Legs Left: 0=No drift Limb Ataxia: 0=Absent Sensory: 1=Mild to Moderate loss Best Language: 0=No aphasia Dysarthria: 1=Mild to moderate loss Extinction & Inattention: 1=Visual,tactile,auditory NIH Stroke Scale Score: 11 EULALIA MACKAY MD Feb 15, 2021 13:42
--- NOTE | 2021-02-15 13:53 | Diagnostic Imaging Report ---
PROCEDURE: CT head without, r/o stroke. TECHNIQUE: Multiple contiguous axial images were obtained through the brain without the use of intravenous contrast. Auto Exposure Controls were utilized during the CT exam to meet ALARA standards for radiation dose reduction. INDICATION: Right-sided weakness. COMPARISON: No prior studies are available for comparison. FINDINGS: The ventricles and sulci are somewhat prominent for the patient's age, consistent with some mild cerebral atrophy. No sulcal effacement or midline shift is identified. No acute intra-axial or extra-axial hemorrhage is detected. The cisterns are patent. The visualized paranasal sinuses demonstrate some trace fluid in the maxillary sinuses bilaterally. There is opacification of multiple ethmoid air cells. IMPRESSION: 1. Paranasal sinus disease. 2. No acute intracranial process is detected. Dictated by: Dictated on workstation # [id number]
--- NOTE | 2021-02-15 13:58 | Diagnostic Imaging Report ---
INDICATION: Cough and weakness. COMPARISON: Comparison made with prior examination from 02/08/2021. FINDINGS: The heart size, mediastinal configuration, and pulmonary vascularity are within normal limits. There is no pleural effusion, pneumothorax, or pneumonia. The osseous structures are unremarkable. IMPRESSION: No acute cardiopulmonary abnormality. Dictated by: Dictated on workstation # [id number]
[2021-02-15 14:12] LABS: HEMATOCRIT 35 % (40-54); HEMOGLOBIN 11.7 g/dL (13.3-17.7); INR 1.1 (0.8-1.4); LYMPHOCYTES % (AUTO) 28 % (12-44); MEAN CORPUSCULAR HEMOGLOBIN 29 pg (25-34); MEAN CORPUSCULAR HGB CONC 34 g/dL (32-36); MEAN CORPUSCULAR VOLUME 87 fL (80-99); MEAN PLATELET VOLUME 9.5 fL (9.0-12.2); MONOCYTES % (AUTO) 14 % (0-12); NEUTROPHILS % (AUTO) 56 % (42-75); PLATELET COUNT 192 10^3/uL (130-400); PROTHROMBIN TIME PATIENT 14.4 SEC (12.2-14.7); WHITE BLOOD COUNT 6.5 10^3/uL (4.3-11.0)
[2021-02-15 14:13] LABS: BASOPHILS % (AUTO) 1 % (0-10); EOSINOPHILS % (AUTO) 1 % (0-10); LYMPHOCYTES # (AUTO) 1.8 X 10^3 (1.0-4.0); MONOCYTES # (AUTO) 0.9 X 10^3 (0.0-1.0); NEUTROPHILS # (AUTO) 3.7 X 10^3 (1.8-7.8)
[2021-02-15 14:15] LABS: ATYPICAL LYMPHOCYTES 7 %; BAND NEUTROPHILS 11 %; EOSINOPHILS % (MANUAL) 1 %; LYMPHOCYTES % (MANUAL) 18 %; MONOCYTES % (MANUAL) 11 %; NEUTROPHILS % (MANUAL) 52 %
[2021-02-15] MEDS ORDERED: IOHEXOL 350 MG/ML 100 ML (OMNIPAQUE 350) VIAL IV ONE (14:15)
[2021-02-15] MEDS ORDERED: NS 100 ML (IVPB) BAG IV ONE (14:15)
[2021-02-15] MEDS ORDERED: HOLD METFORMIN - RECEIVED CONTRAST 20 ML VIAL IV SCH (14:15)
[2021-02-15] MEDS ORDERED: CATHETER FLUSH 10 ML SYR IV PRN ×2 (14:15→18:45)
[2021-02-15 14:16] LABS: RBC MORPH NORMAL
[2021-02-15 14:17] LABS: ALANINE AMINOTRANSFERASE 14 U/L (0-55); ALKALINE PHOSPHATASE 105 U/L (40-136); BILIRUBIN,TOTAL 0.3 MG/DL (0.1-1.0); BUN/CREATININE RATIO 15; CALCIUM 8.5 MG/DL (8.5-10.1); CARBON DIOXIDE 25 MMOL/L (21-32); CHLORIDE 98 MMOL/L (98-107); CREATININE SERUM 1.17 MG/DL (0.60-1.30); GFR ESTIMATED 66; GLUCOSE 344 MG/DL (70-105); POTASSIUM 4.2 MMOL/L (3.6-5.0); SODIUM 133 MMOL/L (135-145)
[2021-02-15 14:18] LABS: ALBUMIN 3.4 GM/DL (3.2-4.5); TOTAL PROTEIN 6.2 GM/DL (6.4-8.2)
--- NOTE | 2021-02-15 14:49 | Diagnostic Imaging Report ---
PROCEDURE: CT angiography of the head and CT angiography of the neck with and without contrast. TECHNIQUE: Contiguous noncontrast images were obtained from the skull base through the vertex. After intravenous contrast administration, helical CT angiography of the neck was performed. Source data was reformatted into 3D MIP projections. Delayed post contrast acquisition was also obtained. Auto Exposure Controls were utilized during the CT exam to meet ALARA standards for radiation dose reduction. INDICATION: Right-sided weakness. The delayed postcontrast imaging through the brain shows no enhancing lesion. CTA NECK: There is a three-vessel branching pattern to the aortic arch. A right common carotid artery is widely patent. The left common carotid artery is widely patent. Both carotid bifurcations are unremarkable. A right internal carotid artery appears to be patent. Left internal carotid artery is patent. The vertebral arteries appear to be codominant. No stenosis is identified. CTA HEAD: The basilar artery is patent. Right and left posterior cerebral arteries appear to be widely patent. The M1 and M2 branches of the right and left middle cerebral arteries appear to be patent. No large branch occlusion or thromboembolism is identified. Right and left anterior cerebral arteries appear to be patent. IMPRESSION: Unremarkable CT angiogram of the head and neck. No large branch occlusion or thromboembolism is identified. Dictated by: Dictated on workstation # [id number]
[2021-02-15 18:21] VITALS: BP 123/70
[2021-02-15] MEDS: NS IV 1000 ML 1,000 ML IV SCH (20:08)
[2021-02-15 20:14] VITALS: BP 138/75
[2021-02-15] MEDS ORDERED: ALPRAZolam 0.25 MG (XANAX) TAB PO PRN (21:15)
[2021-02-15] MEDS ORDERED: diphenhydrAMINE 25 MG TAB (BENADRYL) PO PRN (21:15)
[2021-02-15] MEDS ORDERED: LOPERAMIDE 2 MG (IMODIUM) TABLET PO PRN (21:15)
[2021-02-15] MEDS ORDERED: morphine INJ 10 MG/ML 1ML (SYR OR VIAL) IVP PRN (21:15)
[2021-02-15] MEDS ORDERED: MELATONIN 3 MG TABLET PO PRN (21:15)
[2021-02-15] MEDS ORDERED: DOCUSATE SODIUM 100 MG (COLACE) CAP PO PRN (21:15)
[2021-02-15] MEDS ORDERED: ONDANSETRON 4 MG/2 ML (SDV) Z0FRAN IVP PRN (21:15)
[2021-02-15] MEDS ORDERED: CALCIUM CARBONATE 500 MG (TUMS) TAB.CHEW PO PRN (21:15)
[2021-02-15] MEDS ORDERED: HYDROcodone/APAP 5 MG/325 MG (LORTAB) TAB PO PRN (21:15)
[2021-02-15] MEDS ORDERED: ACETAMINOPHEN 325 MG TABLET PO PRN (21:30)
[2021-02-15] MEDS: inSUlin ASPART (NovoLOG) 1 UNIT/0.01 ML (CHARGE PER UNIT) SC SCH (22:13)
[2021-02-16 00:03] VITALS: BP 105/61
[2021-02-16 04:19] VITALS: BP 125/76
[2021-02-16 05:49] LABS: BASOPHILS % (AUTO) 0 % (0-10); EOSINOPHILS % (AUTO) 1 % (0-10); HEMATOCRIT 32 % (40-54); HEMOGLOBIN 10.5 g/dL (13.3-17.7); LYMPHOCYTES # (AUTO) 2.1 10^3/uL (1.0-4.0); LYMPHOCYTES % (AUTO) 30 % (12-44); MEAN CORPUSCULAR HEMOGLOBIN 30 pg (25-34); MEAN CORPUSCULAR HGB CONC 33 g/dL (32-36); MEAN CORPUSCULAR VOLUME 89 fL (80-99); MEAN PLATELET VOLUME 9.2 fL (9.0-12.2); MONOCYTES # (AUTO) 0.7 10^3/uL (0.0-1.0); MONOCYTES % (AUTO) 10 % (0-12); NEUTROPHILS # (AUTO) 4.1 10^3/uL (1.8-7.8); NEUTROPHILS % (AUTO) 59 % (42-75); PLATELET COUNT 164 10^3/uL (130-400)
[2021-02-16 06:01] LABS: CHLORIDE 104 MMOL/L (98-107)
[2021-02-16 06:02] LABS: ALBUMIN 3.1 GM/DL (3.2-4.5); SODIUM 137 MMOL/L (135-145)
[2021-02-16 06:03] LABS: CALCIUM 8.2 MG/DL (8.5-10.1)
[2021-02-16 06:04] LABS: GLUCOSE 180 MG/DL (70-105); TOTAL PROTEIN 5.8 GM/DL (6.4-8.2); TRIGLYCERIDES 164 MG/DL (<150); VLDL CHOLESTEROL 33 MG/DL (5-40)
[2021-02-16 06:05] LABS: CARBON DIOXIDE 24 MMOL/L (21-32)
[2021-02-16 06:06] LABS: BILIRUBIN,TOTAL 0.3 MG/DL (0.1-1.0)
[2021-02-16 06:08] LABS: ALKALINE PHOSPHATASE 84 U/L (40-136); CREATININE SERUM 0.91 MG/DL (0.60-1.30); GFR ESTIMATED 89
[2021-02-16 06:09] LABS: BUN/CREATININE RATIO 20; CHOLESTEROL 134 MG/DL (< 200)
[2021-02-16 06:10] LABS: HDL CHOLESTEROL < 15 MG/DL (40-60)
[2021-02-16 06:11] LABS: ALANINE AMINOTRANSFERASE 19 U/L (0-55)
[2021-02-16] MEDS: inSUlin ASPART (NovoLOG) 1 UNIT/0.01 ML (CHARGE PER UNIT) SC SCH ×2 (06:27→11:56)
[2021-02-16] MEDS ORDERED: GADOBUTROL 10 MMOL/10 ML (GADAVIST) VIAL IV ONE (08:00)
[2021-02-16] MEDS: NS IV 1000 ML 1,000 ML IV SCH (08:30)
--- NOTE | 2021-02-16 08:41 | Diagnostic Imaging Report ---
INDICATION: Right-sided weakness. TECHNIQUE/COMPARISON: MRI brain was obtained without IV contrast. There is no prior study for comparison. FINDINGS: Diffusion weighted images demonstrate a small acute lacunar infarct in the left thalamus. No other areas of diffusion signal abnormality are seen. There are mild atrophic changes. There is no significant white matter disease otherwise seen. The ventricles are normal in size and position. There is no subdural or epidural collection. There is a small amount of fluid in the maxillary sinuses on both sides. There is no sign of hemorrhagic transformation. IMPRESSION: Small acute lacunar infarct along the lateral edge of the left thalamus. No sign of hemorrhagic transformation. No other significant intracranial finding. Incidental fluid levels in the maxillary sinuses. Dictated by: Dictated on workstation # [id number]
[2021-02-16 08:44] VITALS: BP 104/70
[2021-02-16] MEDS ORDERED: polyethylene glycoL POWDER 17 GM (MIRALAX) PACK PO SCH (09:00)
[2021-02-16] MEDS ORDERED: ENOXAPARIN 40 MG/0.4 ML (LOVENOX) SYR SC SCH (09:00)
[2021-02-16] MEDS ORDERED: CLOPIDOGREL 75 MG (PLAVIX) TABLET PO SCH (09:00)
[2021-02-16] MEDS ORDERED: ASPIRIN 81 MG CHEW (CHILDREN'S ASA) PO SCH (09:00)
[2021-02-16] MEDS ORDERED: SENNA W/DOCUSATE (SENOKOT S) TABLET PO SCH (09:00)
--- NOTE | 2021-02-16 09:04 | Consultation-Cardiology ---
HPI-Cardiology Cardiology Consultation Date of Consultation 02/16/21 Date of Admission Time Seen by Provider: 08:20 HPI Patient is a 50 y.o. male who presented to the ER with complaints of increasing right sided weakness for the past 24 hours. Denies any chest pain. Reports he sustained a fall yesterday as well d/t weakness. Did not hit head and no LOC. Continues to have right arm weakness. Home Medications & Allergies Allergies: Coded Allergies: Fish Containing Products (Verified Allergy, Severe, 02/08/21) "BLACKS OUT" lidocaine (Verified Allergy, Unknown, 02/08/21) FACE SWELLS FROM DENTAL PROCEDURE prednisolone (Verified Allergy, Unknown, 04/24/19) Home Medication List Reviewed: Yes EQT-Flglgd-Gtmzsk Hx Patient Social History Marital Status: Employed/Student: unemployed Smoking Status: Current Everyday Smoker Type Used: Electronic/Vapor 2nd Hand Smoke Exposure: No Recent Hopitalizations: No Have you traveled recently?: No Alcohol Use?: No Substance type: Caffeine Past Medical History PVD, HTN, HLP, DM Review of Systems-General Review of Systems Constitutional: see HPI, malaise, weakness EENTM: see HPI Respiratory: see HPI Cardiovascular: see HPI; No chest pain Gastrointestinal: see HPI Genitourinary: no symptoms reported Musculoskeletal: other (bilateral leg pains from recent procedures) Psychiatric/Neurological: Paresthesia (decreased sensation right arm and leg compared to the left), Weakness (right arm and leg) Reviewed Test Results Reviewed Test Results Lab Laboratory Tests 02/15/21 13:24: Glucometer 324H 02/15/21 13:25: White Blood Count 6.5, Red Blood Count 3.98L, Hemoglobin 11.7L, Hematocrit 35L, Mean Corpuscular Volume 87, Mean Corpuscular Hemoglobin 29, Mean Corpuscular Hemoglobin Concent 34, Red Cell Distribution Width 13.3, Platelet Count 192, Mean Platelet Volume 9.5, Immature Granulocyte % (Auto) 1, Neutrophils (%) (Auto) 56, Lymphocytes (%) (Auto) 28, Monocytes (%) (Auto) 14H, Eosinophils (%) (Auto) 1, Basophils (%) (Auto) 1, Neutrophils # (Auto) 3.7, Lymphocytes # (Auto) 1.8, Monocytes # (Auto) 0.9, Eosinophils # (Auto) 0.0, Basophils # (Auto) 0.0, Immature Granulocyte # (Auto) 0.0, Neutrophils % (Manual) 52, Lymphocytes % (Manual) 18, Monocytes % (Manual) 11, Eosinophils % (Manual) 1, Band Neutrophils 11, Atypical Lymphocytes 7, Blood Morphology Comment NORMAL, Prothrombin Time 14.4, INR Comment 1.1, Activated Partial Thromboplast Time 40H, Sodium Level 133L, Potassium Level 4.2, Chloride Level 98, Carbon Dioxide Level 25, Anion Gap 10, Blood Urea Nitrogen 18, Creatinine 1.17, Estimat Glomerular Filtration Rate 66, BUN/Creatinine Ratio 15, Glucose Level 344H, Calcium Level 8.5, Corrected Calcium 9.0, Total Bilirubin 0.3, Aspartate Amino Transf (AST/SGOT) 22, Alanine Aminotransferase (ALT/SGPT) 14, Alkaline Phosphatase 105, Troponin I < 0.30, Total Protein 6.2L, Albumin 3.4 02/15/21 22:02: Glucometer 283H 02/16/21 05:40: White Blood Count 7.0, Red Blood Count 3.55L, Hemoglobin 10.5L, Hematocrit 32L, Mean Corpuscular Volume 89, Mean Corpuscular Hemoglobin 30, Mean Corpuscular Hemoglobin Concent 33, Red Cell Distribution Width 13.1, Platelet Count 164, Mean Platelet Volume 9.2, Immature Granulocyte % (Auto) 0, Neutrophils (%) (Auto) 59, Lymphocytes (%) (Auto) 30, Monocytes (%) (Auto) 10, Eosinophils (%) (Auto) 1, Basophils (%) (Auto) 0, Neutrophils # (Auto) 4.1, Lymphocytes # (Auto) 2.1, Monocytes # (Auto) 0.7, Eosinophils # (Auto) 0.0, Basophils # (Auto) 0.0, Immature Granulocyte # (Auto) 0.0, Sodium Level 137, Potassium Level 4.0, Chloride Level 104, Carbon Dioxide Level 24, Anion Gap 9, Blood Urea Nitrogen 18, Creatinine 0.91, Estimat Glomerular Filtration Rate 89, BUN/Creatinine Ratio 20, Glucose Level 180H, Calcium Level 8.2L, Corrected Calcium 8.9, Total Bilirubin 0.3, Aspartate Amino Transf (AST/SGOT) 21, Alanine Aminotransferase (ALT/SGPT) 19, Alkaline Phosphatase 84, Total Protein 5.8L, Albumin 3.1L, Triglycerides Level 164H, Cholesterol Level 134, LDL Cholesterol Direct 83, VLDL Cholesterol 33, HDL Cholesterol < 15L Physical Exam Physical Exam Vital Signs Vital Signs - First Documented 02/15/21 13:20 Temp 36.6 Pulse 89 Resp 16 B/P (MAP) 133/89 (104) Pulse Ox 99 O2 Delivery Room Air Capillary Refill : Less Than 3 Seconds Height, Weight, BMI Height: '" Weight: lbs. oz. kg; 25.81 BMI Method: General Appearance: Chronically ill HEENT: PERRL/EOMI; No Pharynx Normal (poor dentition) Neck: Full Range of Motion, Supple; No Carotid Bruit Respiratory: Chest Non Tender, Lungs Clear, Normal Breath Sounds Cardiovascular: Regular Rate, Rhythm, Normal Peripheral Pulses Gastrointestinal: Normal Bowel Sounds, No Pulsatile Mass, Non Tender, Soft Extremity: Pedal Edema (1+ BLE), Slow Capillary Refill, Other (tender to palpation left leg from recent stenting) Neurologic/Psychiatric: Alert, Oriented x3, Facial Droop (right side), Motor Weakness, Sensory Deficit Skin: Warm/Dry A/P-Cardiology Admission Diagnosis Acute CVA PVD HTN HLP Assessment/Plan Acute CVA, presented with right sided weakness. MRI done this morning showing small acute lacunar infarct along the lateral edge of the left thalamus. Continue on Plavix and ASA. Peripheral arterial disease, history of bilateral stenting done in [place] with Dr. Tavo Pruitt, developed nonhealing ulcer to LLE, underwent peripheral angiogram on 02/08/21 with successful complex intervention using Superior stent to the mid SFA and balloon angioplasty to the tibioperoneal trunk, posterior tibial, peroneal artery and anterior tibial arteries of the left leg with excellent results. Totally occluded stent in the mid right SFA reconstructed by collateral with slow flow. Planning for peripheral angiogram with intervention on right SFA at a later date. Echocardiogram was done in September 2020 showing normal LV size, EF 55 to 65%, left atrium 4.34 cm, PA pressure 35 to 40 mmHg. Hypertension, controlled, continue to monitor. Orthostatic tachycardia, his baseline is sinus tachycardia but patient reported that his heart rate become fast and he was diagnosed with POTS as an outpatient. Maintained on low dose beta elie, continue to monitor. Hyperlipidemia, continue to monitor lipids Diabetes mellitus, brittle, followed by primary care physician History of multiple eye surgeries secondary to bleeding and diabetes, significant vision loss, followed with Dr. Checo Araiza Bilateral carotid stenosis, mild disease, ultrasound was done August 2020. Continue to monitor Tobaccoism, reports quit smoking a week ago. Thank you for allowing us to participate in the management of Mr. Baptiste. This is Karen Hay PA-C, as a scribe for Dr. Salinas. Patient was seen and evaluated with Karen, still having slight numbness and weakness on the right side. Review of his MRI reported small acute lacunar infarct on the lateral edge of the left thalamus, reported that he has quit smoking, groin is healing well after the intervention. We will continue on aspirin and Plavix, monitor blood pressure and lipids Initiate physical therapy Has mild bilateral carotid stenosis per carotid ultrasound done in August 2020. Educated and instructed on smoking cessation. Clinical Quality Measures Stroke: Date of last known well: Feb 14, 2021 KAREN CHACON Feb 16, 2021 09:04 ANSELMO SALINAS MD Feb 16, 2021 10:35
--- NOTE | 2021-02-16 10:09 | Physical Therapy Evaluation ---
PT Evaluation-General Medical Diagnosis Admission Date Feb 15, 2021 at 16:01 Medical Diagnosis: TIA/right sided weakness Onset Date: Feb 15, 2021 Therapy Diagnosis Therapy Diagnosis: debility/weakness Precautions Precautions/Isolations: Fall Prevention, Standard Precautions Referral Physician: Ranjan Reason for Referral: Evaluation/Treatment Medical History Pertinent Medical History: DM Current History ER secondary to right sided weakness x 2 days with a fall Reviewed History: Yes Social History Home: Single Level Current Living Status: Spouse Entry Into Home: Level Entry Prior Prior Level of Function SCALE: Activities may be completed with or without assistive devices. 6-Mlqsytgpfg-kcjdsjt completes the activity by him/herself with no assistance from a helper. 5-Set-up or Clean-up Assistance-helper sets up or cleans up; patient completes activity. [place] assists only prior to or following the activity. 4-Supervision or Touching Assistance-helper provides verbal cues and/or touching/steadying and/or contact guard assistance as patient completes activity. Assistance may be provided throughout the activity or intermittently. 3-Partial/Moderate Assistance-helper does LESS THAN HALF the effort. [place] lifts, holds or supports trunk or limbs, but provides less than half the effort. 2-Substantial/Maximal Assistance-helper does MORE THAN HALF the effort. [place] lifts or holds trunk or limbs and provides more than half the effort. 6-Xuxkqoidw-zejzqp does ALL the effort. Patient does none of the effort to complete the activity. Or, the assistance of 2 or more helpers is required for the patient to complete the activity. If activity was not attempted, code reason: 7-Patient Refused. 9-Not Applicable-not attempted and the patient did not perform the activity before the current illness, exacerbation or injury. 10-Not Attempted due to Environmental Limitations-(lack of equipment, weather restraints, etc.). 88-Not Attempted due to Medical Conditions or Safety Concerns. Bed Mobility: 6 Transfers (B,C,W/C): 6 Gait: 6 Indoor Mobility (Ambulation): Independent Prior Devices Use: None reports he has a walker at home but does not use it PT Evaluation-Current Subjective Patient states, "I just want to go home to my and dog." Objective Patient Orientation: Normal For Age ROM/Strength ROM Lower Extremities bilateral LE WFL Strength Lower Extremities left knee flexion 4-/5; knee extension 4-/5; left DF/PF 3+/5; hip flexion 3+/5 right knee flexion 3/5, knee extension 3/5, DF/PF 3/5; hip flexion 3/5 Integumentary/Posture Integumentary refer to nursing notes Bowel Incontinence: No Bladder Incontinence: No Posture WFL Neuromuscular (Tone, Coordination, Reflexes) diminished coordination right UE/ bilateral LE WFL Sensory Vision: Functional Hearing: Functional Transfers Roll Left to Right (QC): 6 Sit to Lying (QC): 6 Lying to Sitting/Side of Bed(Q: 6 Sit to Stand (QC): 4 Chair/Tpm-af-Qinyy Xfer(QC): 4 Gait Does the Patient Walk?: Yes Mode of Locomotion: Walk Anticipated Mode of Locomotion: Walk Walk 10 feet (QC): 4 Walk 50 ft with 2 Turns(QC): 4 Walk 150 ft (QC): 4 Distance: 275' Gait Assistive Device: FWW Comments/Gait Description 3 standing recovery periods due to c/o back pain Balance Sitting Static: Normal Sitting Dynamic: Normal Standing Static: Fair Standing Dynamic: Fair Assessment/Needs 50 y.o. male, will benefit from skilled PT to address functional strength and mobility to improve current LOF to safely return to home with spouse at maximum LOF. Rehab Potential: Fair PT Mcc Goals Safemaker Goals PT Mcc Goals Time Frame: Feb 25, 2021 Roll Left & Right (QC): 6 Sit to Lying (QC): 6 Lying-Sitting on Side/Bed(QC): 6 Sit to Stand (QC): 6 Chair/Kdk-op-Sqehw Xfer(QC): 6 Toilet Transfer (QC): 6 Walk 10 feet (QC): 6 Walk 50ft with 2 Turns (QC): 6 Walk 150 ft (QC): 6 PT Plan Problem List Problem List: Activity Tolerance, Functional Strength, Safety, Balance, Gait, Transfer Treatment/Plan Treatment Plan: Continue Plan of Care Treatment Plan: Bed Mobility, Education, Functional Activity Violeta, Functional Strength, Gait, Safety, Therapeutic Exercise, Transfers Treatment Duration: Feb 25, 2021 Frequency: 6 times per week Estimated Hrs Per Day: .25 hour per day Patient and/or Family Agrees t: Yes Time/GCodes Time In: 837 Time Out: 849 Total Billed Treatment Time: 12 Total Billed Treatment 1 visit EVMod 12 JEANNETTE Peters PT Feb 16, 2021 10:09
[2021-02-16 11:30] VITALS: BP 114/71
[2021-02-16] MEDS ORDERED: DAKIN'S 1/4 STRENGTH (0.125%) 473 ML BTL TOP SCH (12:00)
[2021-02-16] MEDS ORDERED: LIDOCAINE 1% INJ 20 ML 20 ML VIAL ONE (12:18)
--- NOTE | 2021-02-16 13:06 | Implantation of Loop Monitor ---
Implant of Loop Monitior IMPLANTATION OF LOOP MONITOR REPORT DATE OF PROCEDURE: 02/16/21 PREOP DIAGNOSIS: Cryptogenic stroke POSTOP DIAGNOSIS: Cryptogenic stroke PROCEDURE DETAILS: The patient is a 50 male with Cryptogenic requiring long-term surveillance. Therefore implantable loop recorder was discussed and agreed with the patient. Informed consent was taken. All risks and complications were discussed at length. The patient was draped and prepped in the usual sterile fashion. Local anesthesia was lidocaine, which was given in the substernal area close to the 4th intercostal space. Loop monitor [employer] [id number] was implanted according to the protocol. Steri-Strips were placed at the end of the procedure. There were no complications and the patient tolerated the procedure well. The device was interrogated with a voltage of. ANESTHESIA: Local anesthesia with lidocaine. COMPLICATIONS: None CONTRAST/FLUOROSCOPY: None CONCLUSION: Successful implantation of loop monitor with no complication FINAL DIAGNOSIS: Cryptogenic stroke Hypertension Hyperlipidemia Peripheral arterial disease ANSELMO DAVID MD Feb 16, 2021 13:06
[2021-02-16] MEDS ORDERED: ASPI-999 PO (13:48)
--- NOTE | 2021-02-16 14:18 | Occupational Therapy Eval ---
OT Evaluation-General/PLF Medical Diagnosis Admission Date Feb 15, 2021 at 16:01 Medical Diagnosis: TIA/right sided weakness Onset Date: Feb 15, 2021 Therapy Diagnosis Therapy Diagnosis: weakness Precautions Precautions/Isolations: Fall Prevention, Standard Precautions Referral Physician: Ranjan Sprague Reason: Evaluation/Treatment Medical History Pertinent Medical History: DM Additional Medical History eye surgery x2, L ring finger amputation Current History ED via private vehicle c/o R side weakness since ~5pm 02/14/21 Social History Home: Single Level Current Living Status: Spouse Entry Into Home: Level Entry ADL-Prior Level of Function SCALE: Activities may be completed with or without assistive devices. 0-Bjodaycojj-ptlergn completes the activity by him/herself with no assistance from a helper. 5-Set-up or Clean-up Assistance-helper sets up or cleans up; patient completes activity. [place] assists only prior to or following the activity. 4-Supervision or Touching Assistance-helper provides verbal cues and/or touching/steadying and/or contact guard assistance as patient completes activity. Assistance may be provided throughout the activity or intermittently. 3-Partial/Moderate Assistance-helper does LESS THAN HALF the effort. [place] lifts, holds or supports trunk or limbs, but provides less than half the effort. 2-Substantial/Maximal Assistance-helper does MORE THAN HALF the effort. [place] lifts or holds trunk or limbs and provides more than half the effort. 6-Ytdfzpowt-cekzal does ALL the effort. Patient does none of the effort to complete the activity. Or, the assistance of 2 or more helpers is required for the patient to complete the activity. If activity was not attempted, code reason: 7-Patient Refused. 9-Not Applicable-not attempted and the patient did not perform the activity before the current illness, exacerbation or injury. 10-Not Attempted due to Environmental Limitations-(lack of equipment, weather restraints, etc.). 88-Not Attempted due to Medical Conditions or Safety Concerns. ADL PLOF Comments Pt indicates IND with ADLs and functional mobility at PLOF OT Current Status Subjective Pt seated in recliner. Pt and nurse indicate pt to discharge this afternoon. Mental Status/Objective Patient Orientation: Person, Place, Situation Current Upper Extremity ROM WFL Upper Extremity Coordination decreased RUE Upper Extremity Strength RUE grossly 3/5, LUE grossly 4-/5 ADL-Treatment Eating (QC): 6 (per pt report) Toileting Hygiene (QC): 6 (per pt report) Other Treatments Pt seated in recliner, states he is planning to discharge this afternoon. Pt indicates he has no concerns with performing ADLs upon discharge. OT educated pt on UE exercises in order to increase RUE strength, activity tolerance and coordination. OT provided pt with moderate resistance director public service sponge, he performed x10 reps R director public service squeezes. Pt then completed x5 reps each of the following BUE exercises using moderate resistance theraband: shoulder flexion, external rotation, horizontal abduction, elbow flexion and elbow extension. Pt required moderate encouragement to participate in theraband exercises as he states his has theraband at home and has printed exercises already. Pt demo'd understanding of exercises, OT instructed him to complete 2-3 times a day, increasing reps as tolerated. Post tx, pt seated in recliner, call light in reach and all needs met. Education OT Patient Education: Correct positioning, Energy conservation, Exercise program, Home exercise program, Modified ADL techniques, Progress toward Goal/Update tx plan, Purpose of tx/functional activities, Rehab process Teaching Recipient: Patient Teaching Methods: Discussion Response to Teaching: Verbalize Understanding OT Fabricator [employer] Goals Fabricator [employer] Goals Time Frame: Feb 24, 2021 Eating (QC): 6 Oral Hygiene (QC): 6 Toileting Hygiene (QC): 6 Shower/Bathe Self (QC): 6 Upper Body Dressing (QC): 6 Lower Body Dressing (QC): 6 On/Off Footwear (QC): 6 Additional Goals: 1-Demonstrate ADL Tasks, 2-Verbalize Understanding, 3- ImproveStrength/Violeta 1=Demonstrate adherence to instructed precautions during ADL tasks. 2=Patient will verbalize/demonstrate understanding of assistive devices/modifications for ADL. 3=Patient will improve strength/tolerance for activity to enable patient to perform ADL's. OT Education/Plan Problem List/Assessment Assessment: Decreased Activ Tolerance, Decreased UE Strength, Impaired I ADL's Discharge Recommendations Plan/Recommendations: Continue POC Treatment Plan/Plan of Care Patient would benefit from OT for education, treatment and training to promote independence in ADL's, mobility, safety and/or upper extremity function for ADL's. Plan of Care: ADL Retraining, Functional Mobility, UE Funct Exercise/Act Treatment Duration: Feb 24, 2021 Frequency: 5 times per week Estimated Hrs Per Day: .25 hour per day Rehab Potential: Fair Time/GCodes Start Time: 13:39 Stop Time: 13:51 Total Time Billed (hr/min): 12 Billed Treatment Time 1, SREE LANTIGUA OT Feb 16, 2021 14:18
--- NOTE | 2021-02-16 15:46 | Short Stay Summary-Hospitalist ---
VIKAS HICKMAN 02/16/21 1546: History of Present Illness HPI/Chief Complaint 50yo M with PMH of IDDM and peripheral vascular disease presents with R sided weakness/numbness. 02/13, pt had a fall with no injuries. 02/14, pt started to experience R sided weakness. 02/15, went to ED for evaluation. 02/16, arrived to [facility] via private conveyance. Consult with Dr. Salinas showed a small lacunar infarct on brain MRI. Pt condition seemed to be improved and with only slight right sided weakness compared to the left. Pt to be discharged today after ILR implantation. Source: patient, old records Exam Limitations: no limitations Date Seen 02/16/21 Time Seen by a Provider: 11:00 Attending Physician Melany Woodruff DO [facility] Referring Physician Date of Admission Feb 15, 2021 at 16:01 Home Medications & Allergies Home Medications Reviewed patient Home Medication Reconciliation performed by pharmacy medication reconciliations cathodic protection technician and/or nursing. Patients Allergies have been reviewed. Allergies Allergies Coded Allergies Fish Containing Products (Verified Allergy, Severe, 02/08/21) "BLACKS OUT" lidocaine (Verified Allergy, Unknown, 02/08/21) FACE SWELLS FROM DENTAL PROCEDURE prednisolone (Verified Allergy, Unknown, 04/24/19) Past Medical/Social/Family Hx Patient Social History Marrital Status: Employed/Student: unemployed Tobacco Use?: Yes Tobacco type used: Cigars Smoking Status: Former Smoker (Quit 1 month ago, 37 year history with 1.5ppd) Use of E-Cig and/or Vaping dev: Yes E-Cig or Vaping type used: Nicotine Substance type: Caffeine Alcohol Use?: No Pt stated abuse/neglect: No Immunizations Up To Date Influenza Vaccine Up-to-Date: No; Not Current Tetanus Booster (TDap): Unknown Current Status Advance Directives: No Communicates: Verbally Primary Language: Israeli Preferred Spoken Language: Israeli Implanted or Applied Medical D: Stents Family Medical History Family Hx: Mom (Diabetes) Dad ( 23 years ago, Throat Cancer from Smoking) Review of Systems Constitutional: No chills, No fever, No weight loss EENTM: No hearing loss, No vision loss, No throat pain Respiratory: cough; No short of breath, No wheezing Cardiovascular: No chest pain, No edema, No palpitations Gastrointestinal: No diarrhea, No nausea, No vomiting Genitourinary: No dysuria, No frequency, No incontinence Musculoskeletal: No back pain, No joint pain, No neck pain Skin: No change in color, No lesions; rash ( right arm) Psychiatric/Neurological: Denies Headache, Denies Numbness, Denies Tingling Physical Exam Physical Exam Vital Signs Vital Signs - First Documented 02/15/21 13:20 Temp 36.6 Pulse 89 Resp 16 B/P (MAP) 133/89 (104) Pulse Ox 99 O2 Delivery Room Air Capillary Refill : Less Than 3 Seconds Height, Weight, BMI Height: '" Weight: lbs. oz. kg; 25.81 BMI Method: General Appearance: No Apparent Distress, Chronically ill HEENT: PERRL/EOMI, Pharynx Normal (poor dentition) Neck: Full Range of Motion, Supple; No Carotid Bruit Respiratory: Chest Non Tender, Lungs Clear, Normal Breath Sounds Cardiovascular: Regular Rate, Rhythm, Normal Peripheral Pulses Gastrointestinal: Normal Bowel Sounds, No Pulsatile Mass, Non Tender, Soft Extremity: Pedal Edema (1+ BLE), Slow Capillary Refill, Other (tender to palpation left leg from recent stenting) Neurologic/Psychiatric: Alert, Oriented x3, Facial Droop (right side), Motor Weakness, Sensory Deficit Skin: Warm/Dry Results Results/Procedures Labs Laboratory Tests 02/15/21 13:25 02/16/21 05:40 Patient resulted labs reviewed. Short Stay Diagnosis Discharge Diagnosis-Short Stay Admission Diagnosis Acute right-sided muscle weakness Numbness on right side Transient ischemic attack Final Discharge Diagnosis Acute right-sided muscle weakness -slight Numbness on right side -resolved Transient ischemic attack -small lacunar infarct on brain MRI IDDM Peripheral Vascular Disease L Foot Gangrene Conclusion Plan Discharge home today after ILR implantation - continue to monitor for irregularities Cardiology consult -expected to stent L leg due to peripheral vascular disease Wound Care for L Foot Gangrene PT evaluation Clinical Quality Measures Stroke: Date of last known well: Feb 14, 2021 MELANY WOODRUFF DO 02/17/21 0605: History of Present Illness HPI/Chief Complaint CC: CVA HPI: This is a 50yoWM who presented to [place] [facility] with complaints of right- sided weakness. Pt has a strong history of CVA risk factors along with DM- out of control and peripheral vascular disease, so MRI obtained, showing lacunar infarct consistent with his stroke symptoms, Dr. Salinas will place a loop recorder to evaluate for Cryptogenic stroke evaluation. Short Stay Diagnosis Discharge Diagnosis-Short Stay Admission Diagnosis CVA Final Discharge Diagnosis CVA Conclusion Plan Discharge plan Diagnosis/Problems Diagnosis/Problems (1) Lacunar infarct, acute Supervisory-Addendum Brief Verification & Attestation Participated in pt care: history, MDM, physical Personally performed: exam, history, MDM, supervision of care Care discussed with: Medical Student Procedures: n/a Results interpretation: Verified all documentation Verification and Attestation of Medical Student E/M Service A medical student performed and documented this service in my presence. I reviewed and verified all information documented by the medical student and made modifications to such information, when appropriate. I personally performed the physical exam and medical decision making. Melany Woodruff, Feb 17, 2021,06:04 VIKAS HICKMAN Feb 16, 2021 15:46 MELANY WOODRUFF DO Feb 17, 2021 06:05
[2021-02-16 15:57] VITALS: BP 114/71
== END 2021-02-16 15:45 | disposition other institution (70) ==
LOC: EDUNIT# 13:13 → ER FS 13:15 → 4TH 16:01 → UNDOADMOB 16:01 → ER FS 16:30 → 4TH 18:21 → UNDODISOB 02-16 15:45
PROVIDERS: ADMIT Internal Medicine; ATTEND Internal Medicine
DX: I63.9 Cerebral infarction, unspecified (principal); I73.9 Peripheral vascular disease, unspecified; I10 Essential (primary) hypertension; I95.1 Orthostatic hypotension; G45.9 Transient cerebral ischemic attack, unspecified; R53.1 Weakness; E11.9 Type 2 diabetes mellitus without complications; R20.0 Anesthesia of skin; E78.5 Hyperlipidemia, unspecified; Z79.02 Long term (current) use of antithrombotics/antiplatelets; Z79.899 Other long term (current) drug therapy; Z79.4 Long term (current) use of insulin; Z87.891 Personal history of nicotine dependence; Z83.3 Family history of diabetes mellitus; Z80.1 Family history of malignant neoplasm of trachea, bronchus and lung
CPT/HCPCS: 33285; 36415; 70450; 70496; 70498; 70551; 71045; 80053; 80061; 82947; 84484; 85007; 85025; 85027; 85610; 85730; 93005; 93041

== ENCOUNTER 2021-02-22 11:00 | Day surgery (SDC) | payer OTHER ==
[2021-02-22] VITALS (10 sets, daily range): BP systolic 115–149; BP diastolic 62–90
[~2021-02-22] VITALS: Ht 175.3 cm; Wt 81.6 kg
[2021-02-22 08:40] LABS: HEMATOCRIT 39 % (40-54); HEMOGLOBIN 12.8 g/dL (13.3-17.7); MEAN CORPUSCULAR HEMOGLOBIN 29 pg (25-34); MEAN CORPUSCULAR HGB CONC 33 g/dL (32-36); MEAN CORPUSCULAR VOLUME 88 fL (80-99); MEAN PLATELET VOLUME 9.6 fL (9.0-12.2); PLATELET COUNT 291 10^3/uL (130-400); WHITE BLOOD COUNT 10.6 10^3/uL (4.3-11.0)
[2021-02-22 08:55] LABS: ALBUMIN 3.7 GM/DL (3.2-4.5); INR 1.1 (0.8-1.4); POTASSIUM 4.5 MMOL/L (3.6-5.0); PROTHROMBIN TIME PATIENT 14.4 SEC (12.2-14.7)
[2021-02-22 08:56] LABS: CALCIUM 9.9 MG/DL (8.5-10.1)
[2021-02-22 08:58] LABS: TOTAL PROTEIN 7.2 GM/DL (6.4-8.2)
[2021-02-22 09:00] LABS: BILIRUBIN,TOTAL 0.5 MG/DL (0.1-1.0)
[2021-02-22 09:01] LABS: CREATININE SERUM 0.97 MG/DL (0.60-1.30)
[~2021-02-22 11:00] MED LIST changes: +ASPI-999 PO; +HEParin (CATH LAB) 2,000 ML IV ONE; +LIDOCAINE 1% INJ 20 ML 20 ML VIAL ONE; +NS IV 1000 ML 1,000 ML IV SCH; +NS IV 1000 ML 1,000 ML ONE
[2021-02-22] MEDS ORDERED: MIDAZOLAM 5 MG/5 ML (VERSED) VIAL ONE ×2 (11:10→11:51)
[2021-02-22] MEDS ORDERED: diphenhydrAMINE 50 MG/ML INJ (BENADRYL) ONE (11:10)
[2021-02-22] MEDS ORDERED: fentaNYL INJ 100 MCG/2 ML AMP ONE ×2 (11:13→12:06)
[2021-02-22] MEDS ORDERED: NITRO DRIP 25000 MCG/D5W 250 ML IV ONE (11:51)
[2021-02-22] MEDS ORDERED: HEParin 1000 UNIT/ML (10ML VIAL) FOR BOLUS ONE (11:51)
[2021-02-22] MEDS ORDERED: CLOPIDOGREL 75 MG (PLAVIX) TABLET ONE (12:38)
[2021-02-22] MEDS ORDERED: ASPIRIN 325 MG (5 GR) TABLET ONE (12:38)
--- NOTE | 2021-02-22 12:39 | Conscious Sedation/ASA ---
Conscious Sedation Pre-Proced Time 11:00 ASA Score 3 For ASA 3 and 4: Consider anesthesia and medical clearance. Also, for patients with a history of failed moderate sedation consider anesthesia. Airway Lungs Heart ASA score ASA 1: a normal healthy patient ASA 2: a patient with a mild systemic disease (mid diabetes, controlled hypertension, obesity x ASA 3: a patient with a severe systemic disease that limits activity (angina, COPD, prior Myocardial infarction) ASA 4: a patient with an incapacitating disease that is a constant threat to life (CHF, renal failure) ASA 5: a moribund patient not expected to survive 24 hrs. (ruptured aneurysm) ASA 6: a declared brain- patient whose organs are being harvested. For emergent operations, add the letter E after the classification Mallampati Classification Grade 3 Sedation Plan Analgesia, Amnesia, Plan communicated to team members, Discussed options with patient/fam, Discussed risks with patient/fam The patient is an appropriate candidate to undergo the planned procedure, sedation, and anesthesia. The patient immediately re-assessed prior to indication. ANSELMO DAVID MD Feb 22, 2021 12:39
[2021-02-22] MEDS ORDERED: PATIENT MAY USE OWN MEDS, ALL PO SCH (12:45)
[2021-02-22] MEDS ORDERED: RT-ALBUTEROL SULF 2.5 MG/3 ML PRE-MIX VIAL IH PRN (12:45)
[2021-02-22] MEDS ORDERED: NS IV 1000 ML 1,000 ML IV SCH (12:45)
--- NOTE | 2021-02-22 12:47 | Peripheral Report ---
Peripheral Report Physician (s)/Balance Weigher (s) Physician ANSELMO DAVID MD Pre-Procedure Diagnosis Pre-Procedure Diagnosis: Peripheral arterial disease Post-Procedure Note Procedure Start Date: Feb 22, 2021 Name of Procedure: Bilateral lower extremity runoff Third order Additional imaging Stenting of the right SFA Findings/Procedure Note PROCEDURE NOTE: 50 years old gentleman with extensive peripheral arterial disease, had angioplasty and stenting to the left SFA done recently, noted to have total occlusion of the right SFA. He was brought for peripheral angiogram. After explaining the procedure to the patient, all pros and cons were explained, all questions were answered. The patient signed the consent and then he was placed on the cardiac catheterization laboratory. Groin was prepped SL fashion local anesthesia was used. Sheath placed in the left femoral artery, runoff to the left leg was done through the sheath then using a rim catheter I was able to cross over and exchanged the sheath using 6 Maltese 45 cm sheath advanced to the right common femoral artery, patient has total occlusion at the mid right SFA and had a stent at the end of the occlusion that appeared to be occluded. I was able to cross with command 18 wire then I proceeded with balloon dilatation using [place] 6 x 100 with multiple inflation, reestablish flow then I deployed Supera 6 x 100 postdilated with [place] 6 x 120 balloon, angiogram showed excellent result, DSA imaging below the trifurcation showed moderate severe stenosis in the proximal and mid anterior tibial artery, moderate stenosis in the posterior tibial artery. Sheath was exchanged again to a short 6 Maltese sheath. At the end of the procedure the sheath was removed. Closure device was deployed FINDINGS: Left lower extremity: Good runoff down to the trifurcation, stent is patent in the mid left SFA Right lower extremity: Total occlusion at the mid right SFA, successful crossing of the lesion then balloon angioplasty then deployment of Supera 6 x 100 overlapping with an old stent in the mid SFA with excellent results. Angiogram post intervention showing excellent results, DSA imaging below the trifurcation showed moderate severe stenosis in the proximal and mid right anterior tibial artery, moderate disease in the posterior tibial artery. CONCLUSIONS: 1. Total occlusion at the right SFA with an old stent in the midportion, successful balloon angioplasty then deployment of a new Supera 6 x 100 overlapping with the old stent in the mid SFA with excellent results. 2. Moderate to severe stenosis at the proximal and mid right anterior tibial artery, moderate disease at the posterior tibial artery 3. Patent stent in the mid left SFA with good brisk flow down to the trifurcation DISCUSSION AND RECOMMENDATIONS: Continue to maximize medical therapy Anesthesia Type: Conscious Sedation Estimated blood loss (mL): 25 ml Contrast Amount: 56 ml Total Radiation Dose: 99 mGy Post-Procedure Diagnosis Post-operative diagnosis: Ischemic foot ulcer Peripheral arterial disease Hypertension Hyperlipidemia ANSELMO DAVID MD Feb 22, 2021 12:46
[2021-02-22] MEDS ORDERED: METF-865 PO (15:03)
--- NOTE | 2021-02-22 15:04 | Discharge Inst-Post CATH ---
Discharge Inst-CATH/EP Problems Reviewed?: Yes Post Cardiac Cath/EP D/C Inst Follow Up/Plan Appointment with Dr. Salinas's office and 2 to 4 weeks Hold Metformin for 48 hours <b>CARDIAC CATH/EP PROCEDURE DISCHARGE INSTRUCTIONS</b> ACTIVITY * Go Home directly and rest. * Limit activity of the leg (or wrist if it was used) for 7 days including aerobics, swimming, jogging, bicycling, etc. * Restrict stair-climbing for 7 days if possible, if not, climb up with your non-cath leg, then bring together on the same step. * Avoid lifting, pushing, pulling or excessive movement of the affected extremity for 7 days. * Customary sexual activity may be resumed after 2 days-use caution not to use a position that strains or causes pain to the affected extremity. * No driving for 24 hours. * NO SMOKING. * Avoid straining for bowel movements for 7 days. * Gentle walking on level ground is allowed. * Returning to work will depend on the type of procedure and the results. Your doctor will discuss this with you. CALL YOUR DOCTOR FOR ANY OF THE FOLLOWING: *If bleeding from the puncture site occurs- Apply gentle pressure to site with clean cloth and call your doctor or EMS. * If a knot or lump forms under the skin, increases in size, or causes pain. * If bruising appears to be worsening or moving further down your leg instead of disappearing. * Temperature above 101 F. CARE OF YOUR GROIN INCISION; * Bruising or purple discoloration of the skin near the puncture site is common. * You may shower only, no bathtub bathing for 5 days. Be careful to avoid slipping as your leg may feel stiff. * If a closure device was used on your femoral artery, please see the attached guide regarding care of the device and your leg. * Leave dressing on FOR 24 hours. CARE OF YOUR WRIST INCISION; * Bruising or purple discoloration of the skin near the puncture site is common. * You may shower. * DO NOT submerge wrist. * Leave dressing on FOR 24 hours. ANSELMO SALINAS MD Feb 22, 2021 15:04
[2021-02-22] MEDS ORDERED: GABAPENTIN 300 MG (NEURONTIN) CAP PO SCH (21:00)
[2021-02-23] MEDS ORDERED: PANTOPRAZOLE 40 MG (PROTONIX) TAB PO SCH (09:00)
[2021-02-23] MEDS ORDERED: CLOPIDOGREL 75 MG (PLAVIX) TABLET PO SCH (09:00)
[2021-02-23] MEDS ORDERED: SIMvastatin 40 MG (ZOCOR) TAB PO SCH (09:00)
[2021-02-23] MEDS ORDERED: ASPIRIN E.C. 81 MG (ECOTRIN) TAB PO SCH (09:00)
[2021-02-23] MEDS ORDERED: lisINopril 5 MG (PRINIVIL) TABLET PO SCH (09:00)
== END 2021-02-22 18:00 | disposition home or self-care (01) ==
LOC: CATH 11:00 → CSD 14:24 → CATH 18:00
PROVIDERS: ATTEND Internal Medicine Cardiovascular Disease
DX: T82.856A Stenosis of peripheral vascular stent, initial encounter (principal); E11.51 Type 2 diabetes mellitus with diabetic peripheral angiopathy without gangrene; E11.621 Type 2 diabetes mellitus with foot ulcer; I70.291 Other atherosclerosis of native arteries of extremities, right leg; L97.929 Non-pressure chronic ulcer of unspecified part of left lower leg with unspecified severity; I10 Essential (primary) hypertension; R00.0 Tachycardia, unspecified; I49.8 Other specified cardiac arrhythmias; I65.23 Occlusion and stenosis of bilateral carotid arteries; E78.2 Mixed hyperlipidemia; H54.40 Blindness, one eye, unspecified eye; F17.210 Nicotine dependence, cigarettes, uncomplicated; Z79.899 Other long term (current) drug therapy; Z79.82 Long term (current) use of aspirin; Z79.02 Long term (current) use of antithrombotics/antiplatelets; Z79.84 Long term (current) use of oral hypoglycemic drugs
CPT/HCPCS: 36247; 36248; 37226; 75716; 80053; 80061; 85027; 85347; 85610; 85730; C1725 ×2; C1760; C1769 ×2; C1876; C1887 ×2; C1894 ×3; 36415

== ENCOUNTER → 2021-03-02 | Outpatient (CLI) | payer OTHER ==
[~2021-03-02] MED LIST changes: -HEParin (CATH LAB) 2,000 ML IV ONE; -LIDOCAINE 1% INJ 20 ML 20 ML VIAL ONE; -NS IV 1000 ML 1,000 ML IV SCH; -NS IV 1000 ML 1,000 ML ONE
--- NOTE | 2021-03-02 15:45 | Diagnostic Imaging Report ---
INDICATION: Left foot pain. TECHNIQUE: AP, oblique, and lateral views of the left foot are obtained. FINDINGS: No acute fracture or dislocation is identified. No abnormal lytic or sclerotic focus is seen, and there is no radiopaque foreign body. IMPRESSION: No acute abnormality. Dictated by: Dictated on workstation # [id number]
== END ==
LOC: RAD 15:08
PROVIDERS: ATTEND Surgery
DX: E11.621 Type 2 diabetes mellitus with foot ulcer (principal); E11.42 Type 2 diabetes mellitus with diabetic polyneuropathy; L97.524 Non-pressure chronic ulcer of other part of left foot with necrosis of bone; I70.245 Atherosclerosis of native arteries of left leg with ulceration of other part of foot; E11.65 Type 2 diabetes mellitus with hyperglycemia; T65.222D Toxic effect of tobacco cigarettes, intentional self-harm, subsequent encounter; F17.218 Nicotine dependence, cigarettes, with other nicotine-induced disorders
CPT/HCPCS: 73630

== ENCOUNTER → 2021-03-02 | Outpatient (CLI) | payer OTHER | LOC: WOUNDCARE 13:47 | PROVIDERS: ATTEND Surgery | DX: E11.621 Type 2 diabetes mellitus with foot ulcer (principal); I96 Gangrene, not elsewhere classified; E11.42 Type 2 diabetes mellitus with diabetic polyneuropathy; L97.514 Non-pressure chronic ulcer of other part of right foot with necrosis of bone; I70.245 Atherosclerosis of native arteries of left leg with ulceration of other part of foot; E11.65 Type 2 diabetes mellitus with hyperglycemia; T65.222D Toxic effect of tobacco cigarettes, intentional self-harm, subsequent encounter; F17.218 Nicotine dependence, cigarettes, with other nicotine-induced disorders | CPT/HCPCS: 11043; A6197; G0463 ==

== ENCOUNTER → 2021-03-09 | Outpatient (CLI) | payer OTHER | LOC: WOUNDCARE 15:28 | PROVIDERS: ATTEND Surgery | DX: E11.621 Type 2 diabetes mellitus with foot ulcer (principal); I96 Gangrene, not elsewhere classified; E11.42 Type 2 diabetes mellitus with diabetic polyneuropathy; L97.524 Non-pressure chronic ulcer of other part of left foot with necrosis of bone; I70.245 Atherosclerosis of native arteries of left leg with ulceration of other part of foot; E11.65 Type 2 diabetes mellitus with hyperglycemia; T65.222D Toxic effect of tobacco cigarettes, intentional self-harm, subsequent encounter; F17.218 Nicotine dependence, cigarettes, with other nicotine-induced disorders | CPT/HCPCS: A6197; G0463; 99212 ==

== ENCOUNTER → 2021-03-16 | Outpatient (CLI) | payer OTHER ==
[~2021-03-16] MED LIST changes: -LISI2.5T PO; +LISI2.5T13 PO
== END ==
LOC: WOUNDCARE 08:05
PROVIDERS: ATTEND Surgery
DX: E11.621 Type 2 diabetes mellitus with foot ulcer (principal); E11.42 Type 2 diabetes mellitus with diabetic polyneuropathy; L97.522 Non-pressure chronic ulcer of other part of left foot with fat layer exposed; I70.245 Atherosclerosis of native arteries of left leg with ulceration of other part of foot; E11.65 Type 2 diabetes mellitus with hyperglycemia; T65.222D Toxic effect of tobacco cigarettes, intentional self-harm, subsequent encounter; E11.52 Type 2 diabetes mellitus with diabetic peripheral angiopathy with gangrene; F17.218 Nicotine dependence, cigarettes, with other nicotine-induced disorders
CPT/HCPCS: 11042; G0463

== ENCOUNTER → 2021-03-22 | Outpatient (CLI) | payer OTHER | LOC: LAB 11:51 | PROVIDERS: ATTEND Surgery | DX: E11.621 Type 2 diabetes mellitus with foot ulcer (principal); E11.42 Type 2 diabetes mellitus with diabetic polyneuropathy; L97.522 Non-pressure chronic ulcer of other part of left foot with fat layer exposed; I70.245 Atherosclerosis of native arteries of left leg with ulceration of other part of foot; E11.65 Type 2 diabetes mellitus with hyperglycemia; T65.222D Toxic effect of tobacco cigarettes, intentional self-harm, subsequent encounter; F17.218 Nicotine dependence, cigarettes, with other nicotine-induced disorders | CPT/HCPCS: 36415; 83036 ==

== ENCOUNTER → 2021-03-22 | Outpatient (CLI) | payer OTHER | LOC: WOUNDCARE 10:27 | PROVIDERS: ATTEND Surgery | DX: E11.621 Type 2 diabetes mellitus with foot ulcer (principal); I96 Gangrene, not elsewhere classified; E11.42 Type 2 diabetes mellitus with diabetic polyneuropathy; L97.522 Non-pressure chronic ulcer of other part of left foot with fat layer exposed; I70.245 Atherosclerosis of native arteries of left leg with ulceration of other part of foot; E11.65 Type 2 diabetes mellitus with hyperglycemia; T65.222D Toxic effect of tobacco cigarettes, intentional self-harm, subsequent encounter; F17.218 Nicotine dependence, cigarettes, with other nicotine-induced disorders | CPT/HCPCS: 11042; A6207; G0463 ==

== ENCOUNTER → 2021-03-29 | Outpatient (CLI) | payer OTHER | LOC: WOUNDCARE 08:04 | PROVIDERS: ATTEND Surgery | DX: E11.621 Type 2 diabetes mellitus with foot ulcer (principal); E11.42 Type 2 diabetes mellitus with diabetic polyneuropathy; L97.522 Non-pressure chronic ulcer of other part of left foot with fat layer exposed; I70.245 Atherosclerosis of native arteries of left leg with ulceration of other part of foot; E11.65 Type 2 diabetes mellitus with hyperglycemia; T65.222D Toxic effect of tobacco cigarettes, intentional self-harm, subsequent encounter; E11.52 Type 2 diabetes mellitus with diabetic peripheral angiopathy with gangrene; F17.218 Nicotine dependence, cigarettes, with other nicotine-induced disorders | CPT/HCPCS: 11042; G0463 ==

== ENCOUNTER → 2021-04-05 | Outpatient (CLI) | payer OTHER | LOC: WOUNDCARE 08:08 | PROVIDERS: ATTEND Surgery | DX: E11.621 Type 2 diabetes mellitus with foot ulcer (principal); E11.42 Type 2 diabetes mellitus with diabetic polyneuropathy; L97.522 Non-pressure chronic ulcer of other part of left foot with fat layer exposed; I70.245 Atherosclerosis of native arteries of left leg with ulceration of other part of foot; E11.65 Type 2 diabetes mellitus with hyperglycemia; T65.222D Toxic effect of tobacco cigarettes, intentional self-harm, subsequent encounter; E11.52 Type 2 diabetes mellitus with diabetic peripheral angiopathy with gangrene; F17.218 Nicotine dependence, cigarettes, with other nicotine-induced disorders | CPT/HCPCS: 11042; G0463; L4360 ==

== ENCOUNTER → 2021-04-12 | Outpatient (CLI) | payer OTHER | LOC: WOUNDCARE 08:18 | PROVIDERS: ATTEND Family Medicine | DX: E11.621 Type 2 diabetes mellitus with foot ulcer (principal); E11.42 Type 2 diabetes mellitus with diabetic polyneuropathy; E11.52 Type 2 diabetes mellitus with diabetic peripheral angiopathy with gangrene; L97.522 Non-pressure chronic ulcer of other part of left foot with fat layer exposed; I70.245 Atherosclerosis of native arteries of left leg with ulceration of other part of foot; E11.65 Type 2 diabetes mellitus with hyperglycemia; T65.222D Toxic effect of tobacco cigarettes, intentional self-harm, subsequent encounter; F17.218 Nicotine dependence, cigarettes, with other nicotine-induced disorders | CPT/HCPCS: 11042; G0463 ==

== ENCOUNTER → 2021-04-20 | Outpatient (CLI) | payer OTHER | LOC: WOUNDCARE 14:28 | PROVIDERS: ATTEND Family Medicine | DX: E11.52 Type 2 diabetes mellitus with diabetic peripheral angiopathy with gangrene (principal); E11.42 Type 2 diabetes mellitus with diabetic polyneuropathy; E11.621 Type 2 diabetes mellitus with foot ulcer; I70.262 Atherosclerosis of native arteries of extremities with gangrene, left leg; L97.522 Non-pressure chronic ulcer of other part of left foot with fat layer exposed; E11.65 Type 2 diabetes mellitus with hyperglycemia; F17.218 Nicotine dependence, cigarettes, with other nicotine-induced disorders; T65.222D Toxic effect of tobacco cigarettes, intentional self-harm, subsequent encounter | CPT/HCPCS: A6197; G0463; 99212 ==

== ENCOUNTER → 2021-04-24 | Outpatient (CLI) | payer OTHER ==
[~2021-04-24] VITALS: Ht 177 cm; Wt 83.0 kg
[~2021-04-24] MED LIST changes: +CATHETER FLUSH 10 ML SYR IV PRN; +REGADENOSON 0.4 MG/5 ML SYR (LEXISCAN) IV ONE
[2021-04-24 09:40] VITALS: BP 147/93
--- NOTE | 2021-04-24 11:43 | Cardiology Stress Test Report ---
Stress Test Report Date of Procedure/Referring: Date of Procedure: Apr 24, 2021 PCP Anselmo Salinas MD Admitting Physician Center/[facility] Indications: NSR Baseline Heart Rate: 84 Baseline Blood Pressure: Blood Pressure Systolic: 147 Blood Pressure Diastolic: 93 Baseline Vitals Vital Signs Date Time Temp Pulse Resp B/P (MAP) Pulse Ox O2 Delivery O2 Flow Rate FiO2 04/24/21 09:40 84 147/93 (111) 99 Baseline EKG: Baseline EKG: NSR Summary After explaining the procedure to the patient, he signed a consent and then brought to the stress nuclear laboratory. Patient received 0.4 mg Lexiscan for stress test, ECG, heart rate and blood pressure were monitored continuously. Resting and stress dose of radio tracer w ere injected, imaging was acquired and reviewed in short axis, horizontal long axis and vertical long axis views. TID: 1.18 SSS: 4 SDS: 2 EF: 72 1. Patient tolerated Lexiscan well 2. Extracardiac attenuation with diaphragmatic attenuation and increased gastric uptake affecting the quality of the images, there is no significant ischemia or infarction on SPECT images 3. Normal left ventricular size, normal contractility, EF 72% ANSELMO SALINAS MD Apr 24, 2021 11:43
== END ==
LOC: CARD 08:15
PROVIDERS: ATTEND Internal Medicine Cardiovascular Disease
DX: R07.9 Chest pain, unspecified (principal)
CPT/HCPCS: 78452; 93017; A9502

== ENCOUNTER → 2021-04-24 | Outpatient (CLI) | payer OTHER ==
[~2021-04-24] MED LIST changes: -CATHETER FLUSH 10 ML SYR IV PRN; -REGADENOSON 0.4 MG/5 ML SYR (LEXISCAN) IV ONE
== END ==
LOC: WOUNDCARE 10:46
PROVIDERS: ATTEND Family Medicine
DX: E11.621 Type 2 diabetes mellitus with foot ulcer (principal); E11.42 Type 2 diabetes mellitus with diabetic polyneuropathy; E11.52 Type 2 diabetes mellitus with diabetic peripheral angiopathy with gangrene; L97.512 Non-pressure chronic ulcer of other part of right foot with fat layer exposed; I70.245 Atherosclerosis of native arteries of left leg with ulceration of other part of foot; E11.65 Type 2 diabetes mellitus with hyperglycemia; T65.222D Toxic effect of tobacco cigarettes, intentional self-harm, subsequent encounter; F17.218 Nicotine dependence, cigarettes, with other nicotine-induced disorders
CPT/HCPCS: 11042; G0463

== ENCOUNTER → 2021-05-03 | Outpatient (CLI) | payer OTHER | LOC: WOUNDCARE 14:45 | PROVIDERS: ATTEND Family Medicine | DX: E11.621 Type 2 diabetes mellitus with foot ulcer (principal); E11.42 Type 2 diabetes mellitus with diabetic polyneuropathy; L97.522 Non-pressure chronic ulcer of other part of left foot with fat layer exposed; I70.245 Atherosclerosis of native arteries of left leg with ulceration of other part of foot; E11.65 Type 2 diabetes mellitus with hyperglycemia; T65.222D Toxic effect of tobacco cigarettes, intentional self-harm, subsequent encounter; E11.52 Type 2 diabetes mellitus with diabetic peripheral angiopathy with gangrene; F17.218 Nicotine dependence, cigarettes, with other nicotine-induced disorders | CPT/HCPCS: A6197; G0463; 99213 ==

== ENCOUNTER 2021-05-10 16:25 | Inpatient (IN) | payer OTHER ==
[~2021-05-10] VITALS: Ht 177.8 cm; Wt 85.4 kg
--- NOTE | 2021-05-10 16:52 | ED Lower Extremity ---
General Chief Complaint: Lower Extremity Stated Complaint: SORE ON L FOOT Source: patient Exam Limitations: no limitations History of Present Illness Date Seen by Provider: May 10, 2021 Time Seen by Provider: 16:45 Initial Comments This is a 50 yo male who presented to the ER with c/o purple toe. States that he has been having persistent issues with diabetic foot ulcers of his left foot since September 2019. He has followed with [facility] wound clinic and was r ecently referred to Dr. Corona for possible amputation of his left third toe. States that he went to see Dr. Corona today and patient was found to have low blood pressure, black toe, erythema to his left foot. He was sent to the emergency department for further evaluation. States that has been having increased blood sugars greater than 600 at home for the past 3 days as well as chills, nausea, vomiting. He is an insulin dependent diabetic and has been switched from Metformin to insulin to control his blood sugar. He does have a history of severe peripheral artery disease and has bilateral saphenous femoral artery stents as well as ballooning in his left lower extremity. Allergies and Home Medications Allergies Coded Allergies: Fish Containing Products (Verified Allergy, Severe, 02/08/21) "BLACKS OUT" lidocaine (Verified Allergy, Unknown, 02/08/21) FACE SWELLS FROM DENTAL PROCEDURE prednisolone (Verified Allergy, Unknown, 04/24/19) Patient Home Medication List Home Medication List Reviewed: Yes Aspirin (Aspirin) 81 Mg Tab.chew, 81 MG PO DAILY, (Reported) Entered as Reported by: KAMILA DOUGLAS on 02/22/21 0918 Last Action: Reviewed Clopidogrel Bisulfate (Clopidogrel) 75 Mg Tablet, 75 MG PO DAILY, (Reported) Entered as Reported by: KAMILA DOUGLAS on 02/08/21 1126 Last Action: Reviewed Famotidine (Famotidine) 40 Mg Tablet, 40 MG PO HS, (Reported) Entered as Reported by: BARBRA VALENTE on 05/11/21 154 Last Action: Reviewed Gabapentin (Gabapentin) 600 Mg Tablet, 600 MG PO QID, (Reported) Entered as Reported by: BARBAR VALENTE on 05/11/211542 Last Action: Reviewed Insulin Glargine,Hum.rec.anlog (Basaglar Kwikpen U-100) 100 Unit/1 Ml Insuln.pen, 18 UNIT SQ DAILY, (Reported) Entered as Reported by: KAMILA DOUGLAS on 02/08/211125 Last Action: Reviewed Insulin Regular, Human (NovoLIN R Flexpen) 100 Unit/1 Ml Insuln.pen, 18 UNIT SQ AC, (Reported) Entered as Reported by: BARBRA VALENTE on 05/11/21 1543 Last Action: Reviewed Lisinopril (Lisinopril) 2.5 Mg Tablet, 2.5 MG PO DAILY, (Reported) Entered as Reported by: KAMILA DOUGLAS on 02/08/211125 Last Action: Reviewed Omeprazole (Omeprazole) 40 Mg Capsule.dr, 40 MG PO DAILY, (Reported) Entered as Reported by: KAMILA DOUGLAS on 02/08/211125 Last Action: Reviewed Simvastatin (Simvastatin) 40 Mg Tablet, 40 MG PO DAILY, (Reported) Entered as Reported by: KAMILA DOUGLAS on 02/08/211125 Last Action: Reviewed Discontinued Medications Albuterol Sulfate (Proair Hfa) 1 Puff Puff, 1-2 PUFF IH Q4H PRN for SHORTNESS OF BREATH, (Reported) Discontinued Reason: No Longer Taking Entered as Reported by: KAMILA DOUGLAS on 02/08/211125 Last Action: Discontinued Gabapentin (Neurontin) 300 Mg Capsule, 300 MG PO HS, (Reported) Discontinued Reason: No Longer Taking Entered as Reported by: KAMILA DOUGLAS on 02/08/211125 Last Action: Discontinued Metformin HCl (Metformin HCl ER) 500 Mg Tab.er.24h, 500 MG PO BID Discontinued Reason: No Longer Taking Prescribed by: ANSELMO DAVID on 02/22/21 1503 Last Action: Discontinued Metoprolol Succinate (Metoprolol Succinate) 25 Mg Tab.er.24h, 25 MG PO DAILY, (Reported) Discontinued Reason: No Longer Taking Entered as Reported by: KAMILA DOUGLAS on 02/08/211125 Last Action: Discontinued Review of Systems Constitutional: see HPI EENTM: no symptoms reported Respiratory: no symptoms reported Cardiovascular: no symptoms reported Gastrointestinal: see HPI Genitourinary: no symptoms reported Musculoskeletal: see HPI Skin: see HPI Past Atrxxaa-Sahqfd-Zbgzvz Hx Seasonal Allergies Seasonal Allergies: No Past Medical History Surgery/Hospitalization HX: EYE SX X2, LEFT RING FINGER AMPUTATION, 2 PREVIOUS STENTS Surgeries: Yes (finger amputation, eye surgery) Eye Surgery, Orthopedic Respiratory: No Asthma Cardiac: No High Cholesterol, Hypertension Neurological: No Headaches /Migraines, Stroke Genitourinary: No Gastrointestinal: No Gastroesophageal Reflux Musculoskeletal: No Endocrine: Yes Diabetes, Insulin dep HEENT: No Cancer: No Psychosocial: No Integumentary: No Family Medical History Mom (Diabetes) Dad ( 23 years ago, Throat Cancer from Smoking) Physical Exam Vital Signs Vital Signs - First Documented Capillary Refill : Height, Weight, BMI Height: '" Weight: lbs. oz. kg; 26.49 BMI Method: General Appearance: WD/WN, no apparent distress HEENT: PERRL/EOMI, normal ENT inspection, pharynx normal Neck: full range of motion, normal inspection Cardiovascular: regular rate, rhythm, no murmur Respiratory: lungs clear, normal breath sounds, no respiratory distress, no accessory muscle use Gastrointestinal: normal bowel sounds, non tender, soft Feet: right foot non-tender, right foot normal inspection, right foot normal range of motion, right foot abrasions/lacerations; left foot ecchymosis, left foot pain, left foot soft tissue tenderness, left foot swelling Neurologic/Tendon: normal sensation, normal motor functions Neurologic/Psychiatric: no motor/sensory deficits, alert, normal mood/affect, oriented x 3 Skin: normal color, warm/dry Left foot: Marked swelling and redness. Purplish discoloration of 3rd toe at the PIP. Diabetic foot ulcer on left third metatarsal head. Stage II ulcer on sole of foot measuring 2.6cm length by 1.8cm width. Small amount of sloughing. Epibole wound margin. Progress/Results/Core Measures Results/Orders Lab Results Laboratory Tests Test 05/10/21 16:50 05/10/21 17:02 Range/Units White Blood Count 17.2 H 4.3-11.0 10^3/uL Red Blood Count 3.71 L 4.30-5.52 10^6/uL Hemoglobin 10.8 L 13.3-17.7 g/dL Hematocrit 32 L 40-54 % Mean Corpuscular Volume 87 80-99 fL Mean Corpuscular Hemoglobin 29 25-34 pg Mean Corpuscular Hemoglobin Concent 34 32-36 g/dL Red Cell Distribution Width 13.5 10.0-14.5 % Platelet Count 219 130-400 10^3/uL Mean Platelet Volume 10.2 9.0-12.2 fL Immature Granulocyte % (Auto) 1 % Neutrophils (%) (Auto) 83 H 42-75 % Lymphocytes (%) (Auto) 8 L 12-44 % Monocytes (%) (Auto) 9 0-12 % Eosinophils (%) (Auto) 0 0-10 % Basophils (%) (Auto) 0 0-10 % Neutrophils # (Auto) 14.2 H 1.8-7.8 10^3/uL Lymphocytes # (Auto) 1.3 1.0-4.0 10^3/uL Monocytes # (Auto) 1.5 H 0.0-1.0 10^3/uL Eosinophils # (Auto) 0.0 0.0-0.3 10^3/uL Basophils # (Auto) 0.1 0.0-0.1 10^3/uL Immature Granulocyte # (Auto) 0.2 H 0.0-0.1 10^3/uL Neutrophils % (Manual) 83 % Lymphocytes % (Manual) 4 % Monocytes % (Manual) 13 % Eosinophils % (Manual) 0 % Basophils % (Manual) 0 % Band Neutrophils 0 % Blood Morphology Comment NORMAL Prothrombin Time 17.4 H 12.2-14.7 SEC INR Comment 1.4 0.8-1.4 Activated Partial Thromboplast Time 51 H 24-35 SEC D-Dimer 2.57 H 0.00-0.49 UG/ML Sodium Level 132 L 135-145 MMOL/L Potassium Level 4.2 3.6-5.0 MMOL/L Chloride Level 93 L 98-107 MMOL/L Carbon Dioxide Level 24 21-32 MMOL/L Anion Gap 15 H 5-14 MMOL/L Blood Urea Nitrogen 17 7-18 MG/DL Creatinine 1.36 H 0.60-1.30 MG/DL Estimat Glomerular Filtration Rate 56 BUN/Creatinine Ratio 13 Glucose Level 643 *H 70-105 MG/DL Lactic Acid Level 2.02 *H 0.50-2.00 MMOL/L Calcium Level 9.0 8.5-10.1 MG/DL Corrected Calcium 9.6 8.5-10.1 MG/DL Phosphorus Level 3.7 2.3-4.7 MG/DL Total Bilirubin 0.5 0.1-1.0 MG/DL Aspartate Amino Transf (AST/SGOT) 11 5-34 U/L Alanine Aminotransferase (ALT/SGPT) 12 0-55 U/L Alkaline Phosphatase 138 H 40-136 U/L Total Protein 6.8 6.4-8.2 GM/DL Albumin 3.2 3.2-4.5 GM/DL Procalcitonin 2.08 H <0.10 NG/ML SARS-CoV-2 RNA (RT-PCR) Not Detected Not Detecte Micro Results Microbiology 05/10/21 Blood Culture - Preliminary, Resulted No growth My Orders Orders - FLAQUITA IBANEZ APRN Cbc With Automated Diff (05/10/21 16:47) Comprehensive Metabolic Panel (05/10/21 16:47) Blood Culture (05/10/21 16:47) Sputum Culture (05/10/21 16:47) Urinalysis (05/10/21 16:47) Urine Culture (05/10/21 16:47) Protime With Inr (05/10/21 16:47) Partial Thromboplastin Time (05/10/21 16:47) Chest 1 View, Ap/Pa Only (05/10/21 16:47) Ed Iv/Invasive Line Start (05/10/21 16:47) Ed Iv/Invasive Line Start (05/10/21 16:47) Vital Signs Adult Sepsis Patie Q15M (05/10/21 16:47) O2 (05/10/21 16:47) Remove Rings In Anticipation O (05/10/21 16:47) Lactic Acid Analyzer (05/10/21 16:47) Ns Iv 1000 Ml (Sodium Chloride 0.9%) (05/10/21 17:00) Fibrin Degradation Products (05/10/21 16:57) Procalcitonin (Pct) (05/10/21 16:58) Covid 19 Inhouse Test (05/10/21 16:58) Manual Differential (05/10/21 16:50) Ekg Tracing (05/10/21 17:40) Ed Admission (Communication) (05/10/21 17:41) Vital Signs/I&O 05/10/21 05/10/21 05/10/21 16:36 16:36 16:36 Temp 36.3 36.3 Pulse 87 92 Resp 17 25 B/P (MAP) 106/74 111/74 (86) Pulse Ox 94 99 O2 Delivery Room Air Room Air Room Air FiO2 96 Progress Progress Note : Progress Note Upon arrival patient does not appear toxic however his blood pressure is in the 80s systolically. Given his elevated blood sugars and source of infection concern would be for sepsis. Initiated sepsis work-up at this time. Will give IV fluid bolus 30 mg/kg as well. Discussed case with Dr. Woodruff, would like him admitted to ICU for uncontrolled DM, left lower extremity cellulitis, and diabetic foot ulceration. Consulted Dr. Acosta for possible amputation of left lower extremity. Plan of care discussed with patient and he is agreeable with plan. Addendum 05/11/2021: Updated diagnosis for hyperglycemia (not DKA). Initial ECG Impression Date: May 10, 2021 Initial ECG Impression Time: 17:55 Initial ECG Rate: 88 Initial ECG Rhythm: Normal Sinus Initial ECG Intervals: Normal Initial ECG Impression: Normal Initial ECG Comparisson: Unchanged Diagnostic Imaging Diagonstic Imaging: Xray Plain Films/CT/US/NM/MRI: chest Comments [facility], [place] NAME: JENNIFER LAM [facility] REC#: [id number] PT STATUS: ADM IN : 1970 PHYSICIAN: FLAQUITA IBANEZ APRN ADMIT DATE: 05/10/21/ICU Signed Date of Exam:05/10/21 CHEST 1 VIEW, AP/PA ONLY EXAMINATION: Chest 1 view. HISTORY: Sepsis. COMPARISON: 02/15/2021. FINDINGS: Heart size and pulmonary vasculature are normal. There are mild perihilar and bibasilar interstitial opacities. No pleural effusion or pneumothorax. The osseous structures are intact. IMPRESSION: Mild perihilar and bibasilar interstitial opacities consistent with pulmonary edema or pneumonia. Dictated by: Dictated on workstation # [id number] Dict: 05/10/211814 Trans: 05/10/211834 [facility] [id number] Interpreted by: ADIS DUMONT DO Electronically signed by: ADIS DUMONT DO 05/10/211834 Departure Communication (Admissions) Time/Spoke to Admitting Phy: 17:[address] Woodruff, will admit patient ICU. Time/Spoke to Consulting Phy: 17:[address] Acosta. Would like 2 view foot x-ray. Impression Primary Impression: Cellulitis of left foot Additional Impressions: Diabetic foot ulcer Ischemic toe Hyperglycemia due to diabetes mellitus Disposition: ADMITTED INPATIENT Condition: Stable Admissions Decision to Admit Reason: Admit from ER (General) Decision to Admit/Date: May 10, 2021 Time/Decision to Admit Time: 17:37 Departure-Patient Inst. Referrals: [facility] (PCP/Family) Primary Care Physician Copy Copies To 1: [facility] Copies To 2: MAYNOR ACOSTA MD, STORMY D [employer] May 10, 2021 16:52
[2021-05-10] MEDS: NS IV 1000 ML 1,000 ML IV SCH ×5 (16:53→22:17)
[2021-05-10 17:06] LABS: BASOPHILS # (AUTO) 0.1 10^3/uL (0.0-0.1); BASOPHILS % (AUTO) 0 % (0-10); EOSINOPHILS % (AUTO) 0 % (0-10); HEMATOCRIT 32 % (40-54); HEMOGLOBIN 10.8 g/dL (13.3-17.7); LYMPHOCYTES # (AUTO) 1.3 10^3/uL (1.0-4.0); LYMPHOCYTES % (AUTO) 8 % (12-44); MEAN CORPUSCULAR HEMOGLOBIN 29 pg (25-34); MEAN CORPUSCULAR HGB CONC 34 g/dL (32-36); MEAN CORPUSCULAR VOLUME 87 fL (80-99); MEAN PLATELET VOLUME 10.2 fL (9.0-12.2); MONOCYTES # (AUTO) 1.5 10^3/uL (0.0-1.0); MONOCYTES % (AUTO) 9 % (0-12); NEUTROPHILS # (AUTO) 14.2 10^3/uL (1.8-7.8); NEUTROPHILS % (AUTO) 83 % (42-75); PLATELET COUNT 219 10^3/uL (130-400); WHITE BLOOD COUNT 17.2 10^3/uL (4.3-11.0)
[2021-05-10 17:22] LABS: ALBUMIN 3.2 GM/DL (3.2-4.5); POTASSIUM 4.2 MMOL/L (3.6-5.0)
[2021-05-10 17:23] LABS: FIBRIN DEGRADATION PRODUCTS 2.57 UG/ML (0.00-0.49); INR 1.4 (0.8-1.4); PROTHROMBIN TIME PATIENT 17.4 SEC (12.2-14.7)
[2021-05-10 17:25] LABS: TOTAL PROTEIN 6.8 GM/DL (6.4-8.2)
[2021-05-10 17:26] LABS: BILIRUBIN,TOTAL 0.5 MG/DL (0.1-1.0)
[2021-05-10 17:28] LABS: CREATININE SERUM 1.36 MG/DL (0.60-1.30)
[2021-05-10 17:34] LABS: BAND NEUTROPHILS 0 %; BASOPHILS % (MANUAL) 0 %; EOSINOPHILS % (MANUAL) 0 %; LYMPHOCYTES % (MANUAL) 4 %; MONOCYTES % (MANUAL) 13 %; NEUTROPHILS % (MANUAL) 83 %; RBC MORPH NORMAL
--- NOTE | 2021-05-10 18:17 | Diagnostic Imaging Report ---
EXAMINATION: Chest 1 view. HISTORY: Sepsis. COMPARISON: 02/15/2021. FINDINGS: Heart size and pulmonary vasculature are normal. There are mild perihilar and bibasilar interstitial opacities. No pleural effusion or pneumothorax. The osseous structures are intact. IMPRESSION: Mild perihilar and bibasilar interstitial opacities consistent with pulmonary edema or pneumonia. Dictated by: Dictated on workstation # [id number]
[2021-05-10] MEDS ORDERED: ENOXAPARIN 40 MG/0.4 ML (LOVENOX) SYR SC SCH (18:45)
[2021-05-10] MEDS ORDERED: VANCOMYCIN INJECTION 1,000 MG in NS (IVPB) 250 ML IV SCH (18:45)
[2021-05-10] MEDS ORDERED: ONDANSETRON 4 MG/2 ML (SDV) Z0FRAN IVP PRN (18:45)
[2021-05-10] MEDS ORDERED: NS IV 1000 ML 2,400 ML IV ONE (18:45)
[2021-05-10] MEDS ORDERED: diphenhydrAMINE 25 MG TAB (BENADRYL) PO PRN (18:45)
[2021-05-10] MEDS ORDERED: ALPRAZolam 0.25 MG (XANAX) TAB PO PRN (18:45)
[2021-05-10] MEDS ORDERED: ACETAMINOPHEN 500 MG TAB (TYLENOL) PO PRN (18:45)
[2021-05-10] MEDS ORDERED: LOPERAMIDE 2 MG (IMODIUM) TABLET PO PRN (18:45)
[2021-05-10] MEDS ORDERED: MELATONIN 3 MG TABLET PO PRN (18:45)
[2021-05-10] MEDS ORDERED: DOCUSATE SODIUM 100 MG (COLACE) CAP PO PRN (18:45)
[2021-05-10] MEDS ORDERED: inSUlin (REGULAR) HUMAN 1 UNIT/0.01 ML (CHARGE PER UNIT) IV ONE (18:45)
[2021-05-10] MEDS ORDERED: CALCIUM CARBONATE 500 MG (TUMS) TAB.CHEW PO PRN (18:45)
[2021-05-10] MEDS ORDERED: ENOXAPARIN 30 MG/0.3 ML (LOVENOX) SYR SC SCH (19:00)
[2021-05-10] MEDS ORDERED: MEROPENEM 500 MG/NS 100 ML IVPB IV SCH ×2 (19:00)
[2021-05-10 19:07] VITALS: BP 17/106
[2021-05-10] MEDS ORDERED: RT-ALBUTEROL SULF 2.5 MG/3 ML PRE-MIX VIAL INH PRN (19:15)
[2021-05-10] MEDS ORDERED: VANCOMYCIN 1500 MG/NS 500 ML IVPB IV NR ×2 (19:30)
[2021-05-10] MEDS: SENNA W/DOCUSATE (SENOKOT S) TABLET PO SCH (20:40)
[2021-05-10] MEDS: polyethylene glycoL POWDER 17 GM (MIRALAX) PACK PO SCH (20:40)
[2021-05-10] MEDS: MEROPENEM 500 MG/NS 100 ML IVPB IV SCH ×2 (20:44)
[2021-05-10] MEDS: ENOXAPARIN 40 MG/0.4 ML (LOVENOX) SYR SC SCH (20:49)
[2021-05-10] MEDS ORDERED: MEROPENEM 2,000 MG in NS (IVPB) 100 ML IV SCH (22:00)
[2021-05-11] MEDS: MEROPENEM 500 MG/NS 100 ML IVPB IV SCH ×8 (01:10→18:28)
[2021-05-11] MEDS: HYDROmorphone 2 MG/ML VIAL (DILAUDID) IVP PRN ×6 (01:11→23:01)
[2021-05-11] MEDS: NS IV 1000 ML 1,000 ML IV SCH ×6 (01:33→23:20)
[2021-05-11 04:44] LABS: BASOPHILS % (AUTO) 0 % (0-10); EOSINOPHILS # (AUTO) 0.1 10^3/uL (0.0-0.3); EOSINOPHILS % (AUTO) 1 % (0-10); HEMATOCRIT 26 % (40-54); HEMOGLOBIN 8.3 g/dL (13.3-17.7); LYMPHOCYTES # (AUTO) 1.5 10^3/uL (1.0-4.0); LYMPHOCYTES % (AUTO) 12 % (12-44); MEAN CORPUSCULAR HEMOGLOBIN 29 pg (25-34); MEAN CORPUSCULAR HGB CONC 32 g/dL (32-36); MEAN CORPUSCULAR VOLUME 88 fL (80-99); MONOCYTES # (AUTO) 1.1 10^3/uL (0.0-1.0); MONOCYTES % (AUTO) 9 % (0-12); NEUTROPHILS # (AUTO) 10.2 10^3/uL (1.8-7.8); NEUTROPHILS % (AUTO) 79 % (42-75); PLATELET COUNT 174 10^3/uL (130-400)
[2021-05-11 05:08] LABS: ALBUMIN 2.5 GM/DL (3.2-4.5); POTASSIUM 3.9 MMOL/L (3.6-5.0)
[2021-05-11 05:10] LABS: CALCIUM 7.6 MG/DL (8.5-10.1)
[2021-05-11 05:11] LABS: TOTAL PROTEIN 5.2 GM/DL (6.4-8.2)
[2021-05-11 05:13] LABS: BILIRUBIN,TOTAL 0.3 MG/DL (0.1-1.0)
[2021-05-11 05:14] LABS: PHOSPHORUS 1.8 MG/DL (2.3-4.7)
[2021-05-11 05:15] LABS: CREATININE SERUM 0.81 MG/DL (0.60-1.30)
[2021-05-11] MEDS: POTASSIUM CL 10MEQ/50ML IVPB 50 ML IV SCH (06:37)
[2021-05-11] MEDS: KCL 20 MEQ TAB (K-DUR) PO SCH (06:37)
--- NOTE | 2021-05-11 06:40 | Diagnostic Imaging Report ---
Indication: Dyspnea. COMPARISON: 05/10/2021 FINDINGS: Single frontal radiographic view of the chest was obtained and demonstrates significant interval decreased inspiratory volumes. There is now increased crowding in the central hilar structures as well as scattered patchy airspace opacities. There is no large effusion or pneumothorax. Cardiac silhouette and pulmonary vasculature are within normal limits. Osseous structures show no new acute abnormalities. IMPRESSION: 1. Significant diminished inspiratory volumes. 2. Interval development of scattered patchy airspace opacities, which may be on the basis of atelectasis. Developing infiltrate is not excluded. Follow-up is advised. Dictated by: Dictated on workstation # [id number]
[2021-05-11] MEDS: MAGNESIUM 1 GM/100 ML IVPB 100 ML IV SCH (06:52)
[2021-05-11] MEDS: VANCOMYCIN 1250 MG/NS 250 ML IVPB IV SCH ×4 (07:35→20:39)
[2021-05-11] MEDS: SENNA W/DOCUSATE (SENOKOT S) TABLET PO SCH ×2 (07:40→20:39)
[2021-05-11] MEDS: polyethylene glycoL POWDER 17 GM (MIRALAX) PACK PO SCH ×2 (07:40→20:39)
--- NOTE | 2021-05-11 09:09 | Consultation-Cardiology ---
HPI-Cardiology Cardiology Consultation Date of Consultation 05/11/21 Date of Admission Time Seen by Provider: 09:00 Indication: Acute ischemic foot HPI 50 years old gentleman with history of peripheral arterial disease, multiple intervention, had history of diabetic foot ulcer since September 2019, has been following with the wound clinic. He has been having nausea and vomiting for the past 4 days, started to have pain and swelling in his left foot yesterday. Came into the emergency room for evaluation. On my evaluation he was still having active pain. No chest pain. No palpitation Home Medications & Allergies Allergies: Coded Allergies: Fish Containing Products (Verified Allergy, Severe, 02/08/21) "BLACKS OUT" lidocaine (Verified Allergy, Unknown, 02/08/21) FACE SWELLS FROM DENTAL PROCEDURE prednisolone (Verified Allergy, Unknown, 04/24/19) Home Medication List Reviewed: Yes [id number] Hx Patient Social History Smoking Status: Current Everyday Smoker Type Used: Electronic/Vapor 2nd Hand Smoke Exposure: No Recent Hopitalizations: No Have you traveled recently?: No Alcohol Use?: No Past Medical History Discussed below Family Medical History Family Medical Hx Noncontributory Review of Systems-General Review of Systems Constitutional: see HPI, malaise, weakness EENTM: see HPI, no symptoms reported Respiratory: see HPI; No cough, No dyspnea on exertion, No hemoptysis, No orthopnea, No phlegm, No short of breath, No stridor, No wheezing, No other Cardiovascular: see HPI; No chest pain, No edema, No Hx of Intervention, No palpitations, No syncope, No vascular heart diseas; other (Ischemic foot) Gastrointestinal: see HPI, nausea, vomiting Genitourinary: no symptoms reported, see HPI Musculoskeletal: no symptoms reported, see HPI Skin: see HPI, other (Gangrene on the toe on the left foot with swelling and erythema.) Psychiatric/Neurological: No Symptoms Reported, See HPI Reviewed Test Results Reviewed Test Results Lab Laboratory Tests Test 05/10/21 16:50 05/10/21 17:02 05/10/21 18:40 05/10/21 18:50 Range/Units White Blood Count 17.2 H 4.3-11.0 10^3/uL Red Blood Count 3.71 L 4.30-5.52 10^6/uL Hemoglobin 10.8 L 13.3-17.7 g/dL Hematocrit 32 L 40-54 % Mean Corpuscular Volume 87 80-99 fL Mean Corpuscular Hemoglobin 29 25-34 pg Mean Corpuscular Hemoglobin Concent 34 32-36 g/dL Red Cell Distribution Width 13.5 10.0-14.5 % Platelet Count 219 130-400 10^3/uL Mean Platelet Volume 10.2 9.0-12.2 fL Immature Granulocyte % (Auto) 1 % Neutrophils (%) (Auto) 83 H 42-75 % Lymphocytes (%) (Auto) 8 L 12-44 % Monocytes (%) (Auto) 9 0-12 % Eosinophils (%) (Auto) 0 0-10 % Basophils (%) (Auto) 0 0-10 % Neutrophils # (Auto) 14.2 H 1.8-7.8 10^3/uL Lymphocytes # (Auto) 1.3 1.0-4.0 10^3/uL Monocytes # (Auto) 1.5 H 0.0-1.0 10^3/uL Eosinophils # (Auto) 0.0 0.0-0.3 10^3/uL Basophils # (Auto) 0.1 0.0-0.1 10^3/uL Immature Granulocyte # (Auto) 0.2 H 0.0-0.1 10^3/uL Neutrophils % (Manual) 83 % Lymphocytes % (Manual) 4 % Monocytes % (Manual) 13 % Eosinophils % (Manual) 0 % Basophils % (Manual) 0 % Band Neutrophils 0 % Blood Morphology Comment NORMAL Prothrombin Time 17.4 H 12.2-14.7 SEC INR Comment 1.4 0.8-1.4 Activated Partial Thromboplast Time 51 H 24-35 SEC D-Dimer 2.57 H 0.00-0.49 UG/ML Sodium Level 132 L 135-145 MMOL/L Potassium Level 4.2 3.6-5.0 MMOL/L Chloride Level 93 L 98-107 MMOL/L Carbon Dioxide Level 24 21-32 MMOL/L Anion Gap 15 H 5-14 MMOL/L Blood Urea Nitrogen 17 7-18 MG/DL Creatinine 1.36 H 0.60-1.30 MG/DL Estimat Glomerular Filtration Rate 56 BUN/Creatinine Ratio 13 Glucose Level 643 *H 70-105 MG/DL Lactic Acid Level 2.02 *H 1.38 0.50-2.00 MMOL/L Calcium Level 9.0 8.5-10.1 MG/DL Corrected Calcium 9.6 8.5-10.1 MG/DL Phosphorus Level 3.7 2.3-4.7 MG/DL Total Bilirubin 0.5 0.1-1.0 MG/DL Aspartate Amino Transf (AST/SGOT) 11 5-34 U/L Alanine Aminotransferase (ALT/SGPT) 12 0-55 U/L Alkaline Phosphatase 138 H 40-136 U/L Total Protein 6.8 6.4-8.2 GM/DL Albumin 3.2 3.2-4.5 GM/DL Procalcitonin 2.08 H <0.10 NG/ML SARS-CoV-2 RNA (RT-PCR) Not Detected Not Detecte Glucometer 496 *H 70-110 MG/DL Test 05/10/21 20:18 05/10/21 20:56 05/10/21 22:12 05/10/21 23:05 Range/Units Glucometer 359 H 318 H 256 H 249 H 70-110 MG/DL Test 05/11/21 00:03 05/11/21 01:00 05/11/21 02:26 05/11/21 03:02 Range/Units Glucometer 229 H 219 H 177 H 186 H 70-110 MG/DL Test 05/11/21 04:06 05/11/21 04:33 05/11/21 05:07 05/11/21 06:20 Range/Units Glucometer 168 H 149 H 141 H 70-110 MG/DL White Blood Count 13.0 H 4.3-11.0 10^3/uL Red Blood Count 2.91 L 4.30-5.52 10^6/uL Hemoglobin 8.3 #L 13.3-17.7 g/dL Hematocrit 26 L 40-54 % Mean Corpuscular Volume 88 80-99 fL Mean Corpuscular Hemoglobin 29 25-34 pg Mean Corpuscular Hemoglobin Concent 32 32-36 g/dL Red Cell Distribution Width 13.5 10.0-14.5 % Platelet Count 174 130-400 10^3/uL Mean Platelet Volume 10.0 9.0-12.2 fL Immature Granulocyte % (Auto) 0 % Neutrophils (%) (Auto) 79 H 42-75 % Lymphocytes (%) (Auto) 12 12-44 % Monocytes (%) (Auto) 9 0-12 % Eosinophils (%) (Auto) 1 0-10 % Basophils (%) (Auto) 0 0-10 % Neutrophils # (Auto) 10.2 H 1.8-7.8 10^3/uL Lymphocytes # (Auto) 1.5 1.0-4.0 10^3/uL Monocytes # (Auto) 1.1 H 0.0-1.0 10^3/uL Eosinophils # (Auto) 0.1 0.0-0.3 10^3/uL Basophils # (Auto) 0.0 0.0-0.1 10^3/uL Immature Granulocyte # (Auto) 0.1 0.0-0.1 10^3/uL Sodium Level 140 135-145 MMOL/L Potassium Level 3.9 3.6-5.0 MMOL/L Chloride Level 109 H 98-107 MMOL/L Carbon Dioxide Level 21 21-32 MMOL/L Anion Gap 10 5-14 MMOL/L Blood Urea Nitrogen 16 7-18 MG/DL Creatinine 0.81 0.60-1.30 MG/DL Estimat Glomerular Filtration Rate 101 BUN/Creatinine Ratio 20 Glucose Level 171 H 70-105 MG/DL Calcium Level 7.6 L 8.5-10.1 MG/DL Corrected Calcium 8.8 8.5-10.1 MG/DL Phosphorus Level 1.8 L 2.3-4.7 MG/DL Magnesium Level 2.0 1.6-2.4 MG/DL Total Bilirubin 0.3 0.1-1.0 MG/DL Aspartate Amino Transf (AST/SGOT) 10 5-34 U/L Alanine Aminotransferase (ALT/SGPT) 10 0-55 U/L Alkaline Phosphatase 98 40-136 U/L Total Protein 5.2 L 6.4-8.2 GM/DL Albumin 2.5 L 3.2-4.5 GM/DL Test 05/11/21 08:13 Range/Units Glucometer 119 H 70-110 MG/DL Physical Exam Physical Exam Vital Signs Vital Signs - First Documented 05/11/21 01:30 O2 Flow Rate 2.00 Capillary Refill : Greater Than 3 Seconds Height, Weight, BMI Height: '" Weight: lbs. oz. kg; 16.86 BMI Method: General Appearance: No Apparent Distress, WD/WN Eyes: Bilateral Eye Normal Inspection, Bilateral Eye PERRL, Bilateral Eye EOMI HEENT: PERRL/EOMI, TMs Normal, Normal ENT Inspection, Pharynx Normal, Moist Mucous Membranes Neck: Full Range of Motion, Normal Inspection, Non Tender, Supple, Carotid Bruit Respiratory: Chest Non Tender, Normal Breath Sounds, No Accessory Muscle Use, No Respiratory Distress Cardiovascular: Regular Rate, Rhythm, No Gallop, No JVD, No Murmur Gastrointestinal: Normal Bowel Sounds, No Organomegaly, No Pulsatile Mass, Non Tender, Soft Back: No CVA Tenderness, No Vertebral Tenderness Extremity: Other (Gangrene on the left toe, pulse is detected by Doppler, swelling. Tenderness.) Neurologic/Psychiatric: Alert, Oriented x3, No Motor/Sensory Deficits, Normal Mood/Affect Skin: Normal Color, Warm/Dry Lymphatic: No Adenopathy A/P-Cardiology Admission Diagnosis Subacute ischemic foot Peripheral arterial disease Hypertension Hyperlipidemia Assessment/Plan Subacute ischemic toe. Ischemic foot. There is dopplerable pulse. Involving the left leg. I am planning to proceed with peripheral angiogram possible intervention. Peripheral arterial disease, History of bilateral stenting done in [place] with Dr. Tavo Pruitt, developed nonhealing ulcer to LLE, Underwent peripheral angiogram on 02/08/21 with successful complex intervention on the left side using Supera stent to the mid SFA and balloon angioplasty to the tibioperoneal trunk, posterior tibial, peroneal artery and anterior tibial arteries with excellent results. Totally occluded stent in the mid right SFA reconstructed by collateral with slow flow. Angiogram done on February 22, 2021 showing total occlusion of the right SFA with an old stent in the midportion successful balloon angioplasty then deployment of Supera 6 x 100 overlapping with the old stent in the mid SFA with excellent results, moderate to severe stenosis of the proximal and mid right anterior tibial artery, moderate disease of the posterior tibial artery. Evaluation of the stent of the left SFA showed patent stent with good brisk flow down to the trifurcation. 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 MRI brain done 02/15/21 showing acute lacunar infarct at lateral edge of left thalmus. Maintained on ASA and Plavix. Lexiscan stress test showed no significant ischemia or infarction. Continue to monitor Echocardiogram was done in September 2020 showing normal LV size, EF 55 to 65%, left atrium 4.34 cm, PA pressure 35 to 40 mmHg. Hypertension, home medication monitor blood per Orthostatic tachycardia, his baseline is sinus tachycardia but patient reported that his heart rate become fast and he was diagnosed with POTS as an outpatient. Maintained on low dose beta elie, continue to monitor. Hyperlipidemia, continue to monitor lipids Diabetes mellitus, brittle, followed by primary care physician History of multiple eye surgeries secondary to bleeding and diabetes, significant vision loss, followed with Dr. Checo Araiza Bilateral carotid stenosis, mild disease, ultrasound was done August 2020. Continue to monitor Tobaccoism, educated on smoking cessation ANSELMO DAVID MD May 11, 2021 09:09
[2021-05-11] MEDS ORDERED: HEParin (CATH LAB) 2,000 ML IV ONE (09:16)
[2021-05-11] MEDS ORDERED: LIDOCAINE 1% INJ 20 ML 20 ML VIAL ONE (09:16)
--- NOTE | 2021-05-11 11:06 | Tele-ICU Consult ---
History of Present Illness History of Present Illness Date Seen by Provider: May 11, 2021 Time Seen by Provider: 09:22 Date of Admission Reason for Visit: Acute ischemic foot Allergies and Home Medications Allergies Coded Allergies: Fish Containing Products (Verified Allergy, Severe, 02/08/21) "BLACKS OUT" lidocaine (Verified Allergy, Unknown, 02/08/21) FACE SWELLS FROM DENTAL PROCEDURE prednisolone (Verified Allergy, Unknown, 04/24/19) Home Medications Albuterol Sulfate 1 Puff Puff, 1-2 PUFF IH Q4H PRN for SHORTNESS OF BREATH, (Reported) Aspirin 81 Mg Tab.chew, 81 MG PO DAILY, (Reported) Clopidogrel Bisulfate 75 Mg Tablet, 75 MG PO DAILY, (Reported) Gabapentin 300 Mg Capsule, 300 MG PO HS, (Reported) Insulin Glargine,Hum.rec.anlog 100 Unit/1 Ml Insuln.pen, 8 UNIT SQ DAILY, (Reported) Lisinopril 2.5 Mg Tablet, 2.5 MG PO DAILY, (Reported) Metformin HCl 500 Mg Tab.er.24h, 500 MG PO BID Hold Metformin for 48 hours Prescribed by: ANSELMO DAVID on 02/22/21 1503 Metoprolol Succinate 25 Mg Tab.er.24h, 25 MG PO DAILY, (Reported) Omeprazole 40 Mg Capsule.dr, 40 MG PO DAILY, (Reported) Simvastatin 40 Mg Tablet, 40 MG PO DAILY, (Reported) Past Medical/Social/Family Hx Patient Social History Tobacco Use?: Yes Tobacco type used: Cigarettes Smoking Status: Current Everyday Smoker Use of E-Cig and/or Vaping dev: No Substance use?: No Alcohol Use?: No Pt stated abuse/neglect: No Immunizations Up To Date Influenza Vaccine Up-to-Date: No; Not Current Tetanus Booster (TDap): Unknown Current Status Advance Directives: No Communicates: Verbally Primary Language: Irish Preferred Spoken Language: Irish Is interpretation needed?: No Sensory deficits: Vision impairment Implanted or Applied Medical D: None Family Medical History Family Hx: Mom (Diabetes) Dad ( 23 years ago, Throat Cancer from Smoking) Review of Systems Constitutional: see HPI Sepsis Event Evaluation Height, Weight, BMI Height: '" Weight: lbs. oz. kg; 16.86 BMI Method: Exam Exam Patient acknowledged, consented, and participated in this virtual visit which was conducted using real time audio/video Vital Signs Date Time Temp Pulse Resp B/P (MAP) Pulse Ox O2 Delivery O2 Flow Rate FiO2 05/11/21 09:00 101 90 Nasal Cannula 3.00 05/11/21 08:26 37.1 05/11/21 08:00 95 130/70 92 Nasal Cannula 3.00 05/11/21 07:42 95 Room Air 05/11/21 07:00 91 05/11/21 07:00 92 129/63 95 Nasal Cannula 3.00 05/11/21 06:34 Nasal Cannula 3.00 05/11/21 06:00 87 131/72 96 Nasal Cannula 2.00 05/11/21 05:00 96 129/62 93 Nasal Cannula 2.00 05/11/21 04:00 91 Room Air 05/11/21 04:00 92 135/72 97 Nasal Cannula 2.00 05/11/21 03:00 91 126/69 97 Nasal Cannula 2.00 05/11/21 02:00 92 123/68 92 Nasal Cannula 2.00 05/11/21 01:30 Nasal Cannula 2.00 05/11/21 01:00 99 05/11/21 01:00 99 146/75 91 Room Air 05/11/21 00:00 98 126/75 92 Room Air 05/11/21 00:00 91 Room Air 05/10/21 23:00 98 134/66 91 Room Air 05/10/21 22:00 98 114/57 94 Room Air 05/10/21 21:00 98 117/62 92 Room Air 05/10/21 20:30 93 12 123/94 94 Room Air 05/10/21 20:00 96 Room Air 05/10/21 20:00 98 14 134/71 94 Room Air 05/10/21 19:45 90 12 140/78 90 Room Air 05/10/21 19:30 92 16 133/90 96 Room Air 05/10/21 19:15 97 17 133/81 96 Room Air 05/10/21 19:07 36.3 87 74 05/10/21 19:00 36.6 Room Air 05/10/21 19:00 85 15 127/77 99 Room Air 05/10/21 19:00 85 05/10/21 18:46 Room Air 05/10/21 18:30 36.3 90 18 139/83 94 Room Air 05/10/21 16:36 36.3 92 25 111/74 (86) 99 Room Air 05/10/21 16:36 36.3 87 17 106/74 94 Room Air 05/10/21 16:36 Room Air 96 I & O 05/11/21 07:00 Intake Total 5475 ml Output Total 900 ml Balance 4575 ml Height & Weight Height: '" Weight: lbs. oz. kg; 16.86 BMI Method: General Appearance: No Apparent Distress, WD/WN HEENT: PERRL/EOMI, TMs Normal, Normal ENT Inspection, Pharynx Normal, Moist Mucous Membranes Neck: Full Range of Motion, Normal Inspection, Non Tender, Supple, Carotid Bruit Respiratory: Chest Non Tender, Normal Breath Sounds, No Accessory Muscle Use, No Respiratory Distress Cardiovascular: Regular Rate, Rhythm, No Gallop, No JVD, No Murmur Capillary Refill: Greater Than 3 Seconds Gastrointestinal: normal bowel sounds, non tender, soft Extremity: Other (Gangrene on the left toe, pulse is detected by Doppler, swelling. Tenderness.) Neurologic/Psychiatric: Alert, Oriented x3, No Motor/Sensory Deficits, Normal Mood/Affect Skin: Normal Color, Warm/Dry Lymphatic: No Adenopathy Results Lab Laboratory Tests 05/10/21 16:50 05/11/21 04:33 Assessment/Plan Assessment/Plan (Tele-ICU Physician , consultation) Available chart/ vitals / labs / Images reviewed H&P is from ER notes Patient's information available about PMH, Shx, Fhx allergy reviewed in EMR. ROS as per chart and RN report Now in ICU, hemodynamically stable Video assessment done using teleICU camera, rest of exam as per RN Discussed with RN. Consultants: [facility] Hospital course: (05/10) 50yM Admit DKA, Ceellulitis L foot, Diabetic foot ulcer, Ischemic toe A/P Hyperglycemia ( not DKa) - DM - poorly controlled ( hbA1c 02/2021=10 - on insulin gtt Subacute ischemic toe. Ischemic foot, PAD - as per cards - plans for angiogram today Cellulitis , diabetic wound - on Vanco and merrem CVA 02/15/21 with right sided weakness. - on ASA , Plavix Hypoxia - milf - on 3 L o2 - cxr with atelectasis - on IVF - consider o stop at some point after angio ECHO - EF 55% , PA 35 mmHg Lines : peripf (Central Line Necessity Reviewed) Torres: OG: Nutrition: po Analgesia: Anxiety/ delirium xanax VTE Prophylaxis: [id number] Stress Ulcer Prophylaxis: po LAUREN LAMB MD May 11, 2021 11:06
[2021-05-11] MEDS ORDERED: fentaNYL INJ 100 MCG/2 ML AMP ONE (11:24)
[2021-05-11] MEDS ORDERED: MIDAZOLAM 5 MG/5 ML (VERSED) VIAL ONE (11:24)
[2021-05-11] MEDS ORDERED: NS IV 1000 ML 1,000 ML ONE (11:39)
[2021-05-11] MEDS ORDERED: HEParin 1000 UNIT/ML (10ML VIAL) FOR BOLUS ONE (11:59)
[2021-05-11] MEDS ORDERED: NITRO DRIP 25000 MCG/D5W 250 ML IV ONE (12:00)
[2021-05-11] MEDS ORDERED: MIDAZOLAM 2 MG/2 ML (VERSED) VIAL ONE (12:28)
[2021-05-11] MEDS ORDERED: ASPIRIN 325 MG (5 GR) TABLET ONE (12:36)
[2021-05-11] MEDS ORDERED: CLOPIDOGREL 300 MG (PLAVIX) TABLET PO ONE (12:36)
--- NOTE | 2021-05-11 12:38 | History & Physical-Hospitalist ---
IRALIBERTYCORNELL 05/11/21 1238: History of Present Illness HPI/Chief Complaint Left foot ulcer and black toe and uncontrolled blood sugar with N/V and dehy dration Previous HPI from ED: This is a 50 yo male who presented to the ER with c/o purple toe. States that he has been having persistent issues with diabetic foot ulcers of his left foot since September 2019. He has followed with [facility] and was recently referred to Dr. Corona for possible amputation of his left third toe. States that he went to see Dr. Corona today and patient was found to have low blood pressure, black toe, erythema to his left foot. He was sent to the emergency department for further evaluation. States that has been having increased blood sugars greater than 600 at home for the past 3 days as well as chills, nausea, vomiting. He is a type II diabetic and has been switched from Metformin to insulin to control his blood sugar. He does have a history of severe peripheral artery disease and has bilateral saphenous femoral artery stents as well as ballooning in his left lower extremity. Today when I visited the patient he was sleeping in bed and was easily woken. He complains of generalized pain with focused pain from his left foot but states that he is feeling much better overall. He is NPO and has not eaten anything in preparation of angiogram to be performed by Dr. Salinas today. He also states that he has not been able to sleep for the last 3 days and would like something to help him sleep. Source: patient Date Seen 05/11/21 Time Seen by a Provider: 09:07 Attending Physician Melany Landaverde DO [facility] [place] Referring Physician Date of Admission May 10, 2021 at 17:42 Home Medications & Allergies Home Medications Reviewed patient Home Medication Reconciliation performed by pharmacy medication reconciliations integrated pest management technician and/or nursing. Patients Allergies have been reviewed. Allergies Allergies Coded Allergies Fish Containing Products (Verified Allergy, Severe, 02/08/21) "BLACKS OUT" lidocaine (Verified Allergy, Unknown, 02/08/21) FACE SWELLS FROM DENTAL PROCEDURE prednisolone (Verified Allergy, Unknown, 04/24/19) Past Lzzjspw-Xvbzwu-Riivkx Hx Patient Social History Marrital Status: Tobacco Use?: Yes Tobacco type used: Cigarettes Smoking Status: Current Everyday Smoker Smokeless Tobacco Frequency: Current Everyday User ( 1.5PPD) Use of E-Cig and/or Vaping dev: No Substance use?: No Alcohol Use?: No Pt feels they are or have been: No Immunizations Up To Date Tetanus Booster (TDap): Unknown Seasonal Allergies Seasonal Allergies: No Current Status Advance Directives: No Communicates: Verbally Primary Language: Argentine Preferred Spoken Language: Argentine Is interpretation needed?: No Sensory deficits: Vision impairment Implanted or Applied Medical D: None Past Medical History Surgeries: Eye Surgery, Orthopedic Asthma High Cholesterol, Hypertension Headaches /Migraines, Stroke Gastroesophageal Reflux Diabetes, Insulin dep Family Medical History Mom (Diabetes) Dad ( 23 years ago, Throat Cancer from Smoking) Review of Systems Constitutional: No chills, No diaphoresis, No dizziness, No fever; weakness EENTM: No blurred vision, No eye pain, No vision loss, No hoarseness, No mouth pain, No mouth swelling, No throat pain, No throat swelling Respiratory: No cough, No hemoptysis, No short of breath Cardiovascular: No chest pain, No edema; Hx of Intervention; No syncope Gastrointestinal: No RUQ, No LUQ, No RLQ, No LLQ, No constipation, No diarrhea; nausea, vomiting Genitourinary: No discharge, No dysuria, No frequency, No pain Musculoskeletal: No back pain, No gout, No joint pain, No joint swelling, No muscle pain, No muscle stiffness Skin: No change in color, No change in hair/nails Psychiatric/Neurological: Denies Headache, Denies Numbness, Denies Paresthesia, Denies Tingling, Denies Tremors Physical Exam Physical Exam Vital Signs Vital Signs - First Documented 05/11/21 01:30 O2 Flow Rate 2.00 Capillary Refill : Greater Than 3 Seconds Height, Weight, BMI Height: '" Weight: lbs. oz. kg; 16.86 BMI Method: General Appearance: No Apparent Distress, WD/WN Eyes: Bilateral Eye PERRL, Bilateral Eye EOMI HEENT: PERRL/EOMI, Pharynx Normal Neck: Full Range of Motion, Non Tender, Supple Respiratory: Chest Non Tender, Normal Breath Sounds, No Accessory Muscle Use, No Respiratory Distress, Crackles (B/L lower lobes) Cardiovascular: Regular Rate, Rhythm, No Edema, No Gallop, No Murmur, Normal Peripheral Pulses Gastrointestinal: Normal Bowel Sounds, No Organomegaly, No Pulsatile Mass, Non Tender, Soft Rectal: Deferred Back: No CVA Tenderness, No Vertebral Tenderness Extremity: Normal Capillary Refill, Normal Range of Motion, No Calf Tenderness, No Pedal Edema, Other (left 3rd toe dark and tender and open ulcer on plantar surface) Neurologic/Psychiatric: Alert, Oriented x3, No Motor/Sensory Deficits, Normal Mood/Affect, oil driller II-XII Norm as Tested Reflexes: 2+ Bicep (R), 2+ Bicep (L) Skin: Normal Color, Warm/Dry Lymphatic: No Adenopathy (cervial and axillary) Results Results/Procedures Labs Laboratory Tests 05/10/21 16:50 05/11/21 04:33 Patient resulted labs reviewed. Assessment/Plan Admission Diagnosis HHS with dehydration PAD with left foot ulcer and ischemic left 3rd toe Assessment and Plan HHS - T2DM - Severe dehydration PAD - ischemic toe vs cellulitis vs gangrenous - foot ulcer Plural consolidations vs Early PNA HTN HLD Plan: NPO - angiogram planed for today by Dr. Salinas Consult surgery for left foot ulcer and toe Continue IV abx & pain control Glycemic control & IV fluids Bedside ICS MELANY LANDAVERDE 05/12/21 0534: History of Present Illness HPI/Chief Complaint Chief complaint: Severe sepsis due to left foot cellulitis History of present illness: This is a 50-year-old white male diabetic who presented to the ER with left foot pain. Dr. Corona sent him to the ER. He was found to have severe sepsis. Insulin drip started for nonketotic hyperosmolar hyperglycemic status. Pain is controlled. Dr. FRIEDMAN consulted. Dr. Salinas has performed peripheral angiogram and treated stenosis. Source: patient Past Ctxmfuq-Vcydtf-Rooqmr Hx Patient Social History Marrital Status: Employed/Student: unemployed Smokeless Tobacco Frequency: Current Everyday User ( 1.5PPD) Past Medical History High Cholesterol, Hypertension Neuropathy Diabetes, Insulin dep Review of Systems Constitutional: see HPI, dizziness, fever, malaise, weakness EENTM: no symptoms reported Respiratory: no symptoms reported Cardiovascular: no symptoms reported Gastrointestinal: no symptoms reported Genitourinary: no symptoms reported Musculoskeletal: no symptoms reported Skin: no symptoms reported Psychiatric/Neurological: No Symptoms Reported All Other Systems Reviewed Negative Unless Noted: Yes Physical Exam Physical Exam General Appearance: No Apparent Distress, Chronically ill, Obese Eyes: Right Eye Normal Inspection, Right Eye PERRL HEENT: PERRL/EOMI, Normal ENT Inspection, Pharynx Normal, Moist Mucous Membranes Neck: Full Range of Motion, Normal Inspection, Non Tender Respiratory: Chest Non Tender, Lungs Clear, Normal Breath Sounds, No Accessory Muscle Use, No Respiratory Distress Cardiovascular: Regular Rate, Rhythm, No Edema, No Gallop, No JVD, No Murmur, Normal Peripheral Pulses Gastrointestinal: Normal Bowel Sounds, No Organomegaly, No Pulsatile Mass, Non Tender, Soft Back: Normal Inspection, No CVA Tenderness, No Vertebral Tenderness Extremity: Normal Capillary Refill, Normal Inspection, Normal Range of Motion, Non Tender, No Calf Tenderness, No Pedal Edema, Other (left 3rd toe dark and tender and open ulcer on plantar surface) Neurologic/Psychiatric: Alert, Oriented x3, No Motor/Sensory Deficits, Normal Mood/Affect Skin: Normal Color, Warm/Dry Lymphatic: No Adenopathy Assessment/Plan Admission Diagnosis Assessment: Severe sepsis Left foot cellulitis with gangrene Diabetes qth-[id number]-vmtduxx non-DKA bed hyperosmolar hyperglycemic nonketotic state Severe peripheral vascular stenosis status post intervention by Dr. Salinas Profound dehydration Plan: Insulin drip IV antibiotics Dr. FRIEDMAN consult Dr. Salinas consult Admission Status: Inpatient Order (span 2 midnights) Reason for Inpatient Admission: Severe sepsis Supervisory-Addendum Brief Verification & Attestation Participated in pt care: history, MDM, physical Personally performed: exam, history, MDM, supervision of care Care discussed with: Medical Student Procedures: n/a Results interpretation: Verified all documentation Verification and Attestation of Medical Student E/M Service A medical student performed and documented this service in my presence. I reviewed and verified all information documented by the medical student and made modifications to such information, when appropriate. I personally performed the physical exam and medical decision making. Melany Landaverde May 12, 2021,05:34 CORNELL CASTILLO May 11, 2021 12:38 MELANY LANDAVERDE DO May 12, 2021 05:34
[2021-05-11] MEDS ORDERED: PATIENT MAY USE OWN MEDS, ALL PO SCH (12:45)
--- NOTE | 2021-05-11 12:50 | Peripheral Report ---
Peripheral Report Physician (s)/Administrative Support Specialist (s) Physician ANSELMO DAVID MD Pre-Procedure Diagnosis Pre-Procedure Diagnosis: Peripheral arterial disease Post-Procedure Note Procedure Start Date: May 11, 2021 Name of Procedure: Bilateral lower extremities runoff Third order Additional imaging x2 AUTOMOTIVE CONSULTANT of the left posterior tibial artery AUTOMOTIVE CONSULTANT to the left peroneal artery AUTOMOTIVE CONSULTANT to the left tibioperoneal trunk Findings/Procedure Note PROCEDURE NOTE: 50 years old gentleman with extensive peripheral arterial disease, multiple intervention in the past, had nonhealing wound in his left heel, had multiple intervention in the past. Progress with swelling and erythema in his left foot, has gangrene on his toe. After explaining the procedure to the patient, all pros and cons were explained, all questions were answered. The patient signed the consent and then he was placed on the cardiac catheterization laboratory. The patient was placed on the cardiac catheterization laboratory. Groin was prepped SL fashion local anesthesia was used. Sheath placed in the right femoral artery, runoff to the right leg was done then I advanced a rim catheter with a long Storq wire and exchange it to a straight catheter placed in the proximal SFA and did runoff to the left leg then I advanced the catheter to the tibioperoneal trunk and did DSA imaging to the trifurcation. At that point I decided to proceed with intervention, patient was given 5000 units of heparin. The sheath was exchanged into 55 long 6 Khmer sheath advanced to the left SFA. Command extra-support 14 was advanced to the posterior tibial artery and balloon angioplasty was done using 3 x 1.20 Stockwell balloon. Multiple inflation down from the ankle all the way back to the tibioperoneal trunk and I did balloon angioplasty to the tibioperoneal trunk then I are removed the wire and redirected it to the peroneal artery and advanced the catheter and the balloon and the peroneal artery and did balloon angioplasty then I retracted the balloon and repeated angiogram to the trifurcation then angiogram at the level of the foot then I did continuous runoff to the level of the foot and I was satisfied with the improvement. The sheath was retracted up to the left common iliac artery and we did runoff to the left leg again. The sheath was exchanged to short 6 Khmer sheath and closure device deployed FINDINGS: Right lower extremity has mild disease, stent is patent, slow flow below the trifurcation but patent vessels. Left lower extremity, had no significant obstructive disease in the left common iliac and common femoral artery, mild to moderate disease in the SFA, popliteal is patent. Left anterior tibial artery is tapering down into very small artery with mild to moderate disease. At the level of the foot there is good two-vessel flow Left posterior tibial artery was severely diseased, successful balloon angioplasty using Stockwell 3 x 120 balloon with multiple inflation down to the ankle with excellent result some residual recording in the midportion but overall I am satisfied with the flow Left peroneal artery is severely diseased proximally, successful balloon angioplasty with the same balloon with good result Left tibioperoneal trunk has severe disease, successful balloon angioplasty with Stockwell 3 x 120 with excellent results CONCLUSIONS: 1. Severe stenosis at multiple segment below the knee with successful balloon angioplasty to the left tibioperoneal trunk, posterior tibial artery and peroneal artery with excellent improvement of flow down to the foot. Anterior tibial crease tapering down into very small artery but two-vessel flow down to the foot were identified. 2. Patent stent in the mid left SFA with mild to moderate disease 3. Patent stent in the mid right SFA with mild to moderate disease nonobstructive disease. DISCUSSION AND RECOMMENDATIONS: Patient was loaded with aspirin and Plavix, continue to maximize medical therapy and continue with antibiotic. Will need amputation of his toe. Anesthesia Type: Conscious Sedation Estimated blood loss (mL): 25 ml Contrast Amount: 50 ml Total Radiation Dose: 212 mGy Post-Procedure Diagnosis Post-operative diagnosis: Ischemic foot ulcer Peripheral arterial disease Hypertension Hyperlipidemia ANSELMO DAVID MD May 11, 2021 12:50
[2021-05-11] MEDS ORDERED: INSU100I51 SQ (15:43)
[2021-05-11] MEDS ORDERED: FAMO40TA6 PO (15:43)
[2021-05-11] MEDS ORDERED: GBPN600T PO (15:43)
--- NOTE | 2021-05-11 17:51 | CONSULTATION REPORT ---
DATE OF SERVICE: 05/11/2021 ATTENDING ARABIC TRANSLATOR: [facility]. ADMITTING PHYSICIAN: Dr. Woodruff. HISTORY OF PRESENT ILLNESS: The patient is a 50-year-old male who presented to the Emergency Department with edema of the left foot as well as discoloration of the third left toe. He has had a longstanding history of peripheral arterial disease as well as diabetic foot ulcerations and states that he has undergone multiple foot debridements in the past. He states that he has been seeing Dr. Osborne as an outpatient. He also does have a history of insulin-dependent diabetes and states that he has been diabetic for the past 30 years. He has had an aortogram as well as bilateral runoff and was found to have bilateral superficial femoral artery stenosis and underwent angioplasty and stent placement in the past. He was found to have impaired flow again to the left lower extremity, underwent another arteriogram today and was found to have stenosis of the tibioperoneal as well as a distal runoff at the posterior and anterior tibial arteries; however, underwent successful angioplasty and stent placement today. The foot is warm with chronic edema. The bluish discoloration of the third toe appears to be chronic. There is no redness or erythema. He also does have an open wound along the middle forefoot portion along the plantar aspect again with chronic thick skin; however, no signs of redness, erythema or any purulence to indicate any abscess. PAST MEDICAL HISTORY: Hypertension, hypercholesterolemia, migraine headaches, history of stroke, gastroesophageal reflux disease, insulin-dependent diabetes. PAST SURGICAL HISTORY: Multiple debridements of bilateral feet, eye surgery. ALLERGIES: LIDOCAINE, PREDNISOLONE. MEDICATIONS: Aspirin 81 mg daily, Plavix 75 mg daily, famotidine 40 mg daily, gabapentin 600 mg q.i.d., insulin 18 units daily, NovoLog insulin 18 units q.a.c., lisinopril 2.5 mg daily, omeprazole 40 mg daily, simvastatin 40 mg daily. SOCIAL HISTORY: Positive smoke 1.5 packs a day for the past 30 years. Negative alcohol. FAMILY HISTORY: Mother, diabetes. Father oropharyngeal cancer. VITAL SIGNS: Temperature 36.3, blood pressure 110/55, pulse 88, respirations 13, pulse ox 90% on 3 liters nasal cannula. REVIEW OF SYSTEMS: Well-nourished male currently in no acute distress. He is not experiencing any shortness of breath or difficulty breathing. No chest pain, palpitations, diaphoresis. No nausea, vomiting, no diarrhea or constipation. No fever, chills, no recent inadvertent weight loss. All other review of systems negative. PHYSICAL EXAMINATION: CHEST: Scattered rales and distant breath sounds bilaterally. HEART: Regular, no murmurs. EXTREMITIES: No lower extremity edema, negative Homans sign. HEENT: No scleral icterus. NECK: No cervical lymphadenopathy. ABDOMEN: Soft, nontender, nondistended. SKIN: There is a discoloration of the third left foot digit, which is cool with decreased capillary perfusion. He does have a triphasic posterior tibial flow. He has a +1/3 left foot and ankle edema. There is an open wound along the plantar aspect of the mid foot with that appears to be chronic with thick rind of skin with granulation tissue at the base. No fluctuance to indicate an abscess. SKIN: Warm, dry. LABORATORY DATA: WBC 13.0, hemoglobin 8.3, hematocrit 26, platelets 174. BUN 16, creatinine 0.81, blood sugar 123. ASSESSMENT AND PLAN: A 50-year-old male with severe peripheral arterial disease, status post left tibioperoneal as well as anterior tibial and posterior tibial angioplasty and stent placement. It appears that he does have a good arterial perfusion of the left lower extremity now. He has an ischemic left toe, which does not seem to be viable; however, appears to be dry and no active infection. He also has a chronic open wound of the forefront along the plantar aspect of the left foot, which appears to be chronic with no abscess. It was explained to the patient, we will ultimately need to have a left third toe amputated as well as debridement of the open wound to allow for granulation tissue to form and this will be augmented by his recent arteriogram, angioplasty and stent placement. He will also need to continue with medical management with anticoagulation; however, he will also need to proceed with smoking cessation. He states that he would like to proceed with these procedures; however, would like to first go home and discuss this with his and schedule this as an outpatient. For now, we will recommend elevation of the left foot to allow for decreased edema and for greater perfusion and to proceed with continued medical therapy with anticoagulation. He will also need to proceed with graded distance walking therapy to increase collateralization and increased overall distal flow. Job ID: [id number] DocumentID: [id number] Dictated Date: 05/11/2021 17:04:12 Larry Operator Date: 05/11/2021 17:50:56 Dictated By: MAYNOR FRIEDMAN MD
[2021-05-11] MEDS: ACETAMINOPHEN 325 MG TABLET PO PRN ×2 (18:17→23:02)
[2021-05-11] MEDS: ENOXAPARIN 40 MG/0.4 ML (LOVENOX) SYR SC SCH (20:38)
[2021-05-11] MEDS: inSUlin ASPART (NovoLOG) 1 UNIT/0.01 ML (CHARGE PER UNIT) SC SCH (20:47)
[2021-05-12] MEDS: MEROPENEM 500 MG/NS 100 ML IVPB IV SCH ×6 (03:43→13:49)
[2021-05-12] MEDS: ACETAMINOPHEN 325 MG TABLET PO PRN (03:49)
[2021-05-12] MEDS: NS IV 1000 ML 1,000 ML IV SCH ×2 (06:21→09:01)
[2021-05-12] MEDS: inSUlin ASPART (NovoLOG) 1 UNIT/0.01 ML (CHARGE PER UNIT) SC SCH ×3 (06:22→16:36)
[2021-05-12] MEDS ORDERED: TROUGH ORDER-PHARMACY XX NR (07:00)
[2021-05-12 07:28] LABS: BASOPHILS % (AUTO) 0 % (0-10); EOSINOPHILS # (AUTO) 0.2 10^3/uL (0.0-0.3); EOSINOPHILS % (AUTO) 1 % (0-10); HEMATOCRIT 27 % (40-54); HEMOGLOBIN 8.7 g/dL (13.3-17.7); LYMPHOCYTES # (AUTO) 1.4 10^3/uL (1.0-4.0); LYMPHOCYTES % (AUTO) 12 % (12-44); MEAN CORPUSCULAR HEMOGLOBIN 29 pg (25-34); MEAN CORPUSCULAR HGB CONC 33 g/dL (32-36); MEAN CORPUSCULAR VOLUME 89 fL (80-99); MEAN PLATELET VOLUME 9.5 fL (9.0-12.2); MONOCYTES # (AUTO) 0.8 10^3/uL (0.0-1.0); MONOCYTES % (AUTO) 7 % (0-12); NEUTROPHILS # (AUTO) 9.4 10^3/uL (1.8-7.8); NEUTROPHILS % (AUTO) 79 % (42-75); PLATELET COUNT 200 10^3/uL (130-400); WHITE BLOOD COUNT 11.9 10^3/uL (4.3-11.0)
[2021-05-12 08:04] LABS: ALBUMIN 2.5 GM/DL (3.2-4.5); BILIRUBIN,TOTAL 0.4 MG/DL (0.1-1.0); CALCIUM 7.9 MG/DL (8.5-10.1); CREATININE SERUM 0.9 MG/DL (0.60-1.30); POTASSIUM 3.9 MMOL/L (3.6-5.0); TOTAL PROTEIN 5.6 GM/DL (6.4-8.2); VANCOMYCIN,TROUGH 18.2 UG/ML (10.0-20.0)
[2021-05-12] MEDS: KCL 20 MEQ TAB (K-DUR) PO SCH (08:32)
[2021-05-12] MEDS: MAGNESIUM 1 GM/100 ML IVPB 100 ML IV SCH (08:32)
[2021-05-12] MEDS: POTASSIUM CL 10MEQ/50ML IVPB 50 ML IV SCH (08:32)
--- NOTE | 2021-05-12 08:32 | Tele-ICU Progress Note ---
Subjective Date Seen by a Provider: May 12, 2021 Time Seen by a Provider: 09:54 Subjective/Events-last exam 50 yo M admitted with DKA 05/10, also cellulits left foot and diabetic foot ulcer, On IV vancomycin, meropenem-vanco trough 18 this am, Cr 0.9 and glu has been fairly controlled UO a little low, looks concentrated, will increase IVF from 80 to 125 Started today on Plavix/ASA c/o CHONG, c/o foot pain -12/31, will give [place] Sepsis Event Evaluation Height, Weight, BMI Height: '" Weight: lbs. oz. kg; 16.86 BMI Method: Focused Exam Lactate Level 05/10/21 16:50: Lactic Acid Level 2.02*H 05/10/21 18:40: Lactic Acid Level 1.38 Exam Exam Patient acknowledged, consented, and participated in this virtual visit which was conducted using real time audio/video Vital Signs Date Time Temp Pulse Resp B/P (MAP) Pulse Ox O2 Delivery O2 Flow Rate FiO2 05/12/21 07:52 Room Air 05/12/21 06:00 84 19 116/60 Room Air 05/12/21 05:00 84 19 116/59 Room Air 05/12/21 04:00 93 20 138/72 Room Air 05/12/21 04:00 95 Room Air 05/12/21 03:00 87 18 110/55 Room Air 05/12/21 02:00 86 19 112/63 Room Air 05/12/21 01:00 93 22 108/56 Room Air 05/12/21 01:00 93 05/12/21 00:00 95 20 127/72 Room Air 05/12/21 00:00 95 Room Air 05/11/21 23:25 37.0 05/11/21 23:00 101 22 139/70 Room Air 05/11/21 22:00 96 19 135/86 Room Air 05/11/21 21:00 96 25 136/80 Room Air 05/11/21 20:00 101 23 114/75 92 Room Air 05/11/21 20:00 95 Room Air 05/11/21 20:00 37.8 Room Air 05/11/21 19:00 112 23 126/74 92 Room Air 05/11/21 19:00 111 15 137/82 93 05/11/21 19:00 112 05/11/21 18:45 108 23 146/77 92 05/11/21 18:30 112 132/85 90 05/11/21 18:28 91 Nasal Cannula 2.00 05/11/21 18:15 110 19 94 05/11/21 18:00 100 21 142/72 05/11/21 17:15 99 9 90 Nasal Cannula 3.00 05/11/21 17:00 Nasal Cannula 3.00 05/11/21 17:00 97 19 129/62 89 Nasal Cannula 3.00 05/11/21 16:45 101 15 116/58 91 Nasal Cannula 3.00 05/11/21 16:30 92 16 119/77 Nasal Cannula 3.00 05/11/21 16:15 88 13 110/55 90 05/11/21 16:15 88 13 110/55 90 Nasal Cannula 3.00 05/11/21 16:14 95 Room Air 3.00 05/11/21 16:00 85 20 112/54 89 05/11/21 16:00 85 20 112/54 89 Nasal Cannula 3.00 05/11/21 15:51 36.7 05/11/21 15:45 83 33 108/50 05/11/21 15:45 83 33 108/50 Nasal Cannula 3.00 05/11/21 15:30 79 0 121/67 95 05/11/21 15:30 79 0 121/67 95 Nasal Cannula 3.00 05/11/21 15:15 82 29 112/58 98 Nasal Cannula 3.00 05/11/21 15:15 82 29 112/58 98 05/11/21 15:00 83 21 107/62 95 Nasal Cannula 3.00 05/11/21 15:00 83 21 107/62 95 05/11/21 14:45 82 19 116/62 96 Nasal Cannula 3.00 05/11/21 14:30 84 19 115/63 96 Nasal Cannula 3.00 05/11/21 14:15 84 20 115/69 96 Nasal Cannula 3.00 05/11/21 14:00 86 21 124/64 96 Nasal Cannula 3.00 05/11/21 14:00 86 21 124/64 96 05/11/21 13:45 86 22 93 Nasal Cannula 3.00 05/11/21 13:45 86 22 123/64 93 05/11/21 13:30 88 22 127/65 92 Nasal Cannula 3.00 05/11/21 13:30 88 22 127/65 92 05/11/21 13:15 Nasal Cannula 3.00 05/11/21 13:15 91 23 135/71 91 Nasal Cannula 3.00 05/11/21 13:00 86 05/11/21 13:00 95 19 138/73 91 Nasal Cannula 3.00 05/11/21 12:51 96 21 145/79 90 Nasal Cannula 3.00 05/11/21 12:45 37.0 95 18 145/79 92 Nasal Cannula 3.00 05/11/21 12:00 95 Room Air 3.00 05/11/21 11:00 87 18 124/63 94 Nasal Cannula 3.00 05/11/21 09:00 101 90 Nasal Cannula 3.00 I & O 05/12/21 06:59 Intake Total 1302.5 ml Output Total 1200 ml Balance 102.5 ml Height & Weight Height: '" Weight: lbs. oz. kg; 16.86 BMI Method: General Appearance: No Apparent Distress, Chronically ill, Obese HEENT: PERRL/EOMI, Normal ENT Inspection, Pharynx Normal, Moist Mucous Membranes Neck: Full Range of Motion, Normal Inspection, Non Tender Respiratory: Chest Non Tender, Lungs Clear, Normal Breath Sounds, No Accessory Muscle Use, No Respiratory Distress Cardiovascular: Regular Rate, Rhythm, No Edema, No Gallop, No JVD, No Murmur, Normal Peripheral Pulses Capillary Refill: Less Than 3 Seconds Gastrointestinal: normal bowel sounds, non tender, soft Extremity: Normal Capillary Refill, Normal Inspection, Normal Range of Motion, Non Tender, No Calf Tenderness, No Pedal Edema, Other (left 3rd toe dark and tender and open ulcer on plantar surface, still has some redness left foot, still having some drainage) Neurologic/Psychiatric: Alert, Oriented x3, No Motor/Sensory Deficits, Normal Mood/Affect Skin: Normal Color, Warm/Dry Lymphatic: No Adenopathy Results Lab Laboratory Tests 05/10/21 16:50 05/11/21 04:33 05/12/21 07:17 Assessment/Plan Assessment/Plan Hyperglycemia ( not DKa) - DM - poorly controlled ( hbA1c 02/2021=10 - on insulin gtt Subacute ischemic toe. 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 Not much residual - on ASA , Plavix Hypoxia - milf - on room air - cxr with atelectasis - on IVF - will increse IVF due to dark urine with oliguria ECHO - EF 55% , PA 35 mmHg Critical Care: Critically Ill Patient Time spent with patient (mins): 25 MAHESH MALLOY MD May 12, 2021 08:32
[2021-05-12] MEDS: SENNA W/DOCUSATE (SENOKOT S) TABLET PO SCH (08:33)
[2021-05-12] MEDS: polyethylene glycoL POWDER 17 GM (MIRALAX) PACK PO SCH (08:33)
[2021-05-12] MEDS: VANCOMYCIN 1250 MG/NS 250 ML IVPB IV SCH ×2 (08:42)
[2021-05-12] MEDS ORDERED: CLOPIDOGREL 75 MG (PLAVIX) TABLET PO SCH (09:00)
[2021-05-12] MEDS ORDERED: ASPIRIN E.C. 81 MG (ECOTRIN) TAB PO SCH (09:00)
[2021-05-12] MEDS: HYDROmorphone 2 MG/ML VIAL (DILAUDID) IVP PRN (09:14)
--- NOTE | 2021-05-12 09:44 | Diagnostic Imaging Report ---
INDICATION: Left 3rd toe ischemia and swelling. TIME OF EXAM: 9:16 AM 2 views of left foot were obtained. There appears to be some soft tissue swelling along the dorsum of the foot. The phalanges appear to be intact. No definite bony destructive changes or periosteal reaction is seen. There does appear to be some air densities in the soft tissues of the 3rd toe consistent with soft tissue gas. The metatarsals are intact. Midfoot and hindfoot are unremarkable apart from a large plantar calcaneal spur. IMPRESSION: Soft tissue swelling. There is also suggestion of soft tissue gas in the 3rd toe. Gas-forming organism cannot be entirely excluded. No bony destructive changes are identified to suggest osteomyelitis. Dictated by: Dictated on workstation # [id number]
[2021-05-12] MEDS ORDERED: HYDROcodone/APAP 5 MG/325 MG (LORTAB) TAB PO PRN (10:00)
[2021-05-12] MEDS ORDERED: PROM25TA14 PO (10:03)
[2021-05-12] MEDS ORDERED: HYDR-3817 PO (10:03)
[2021-05-12] MEDS ORDERED: CEFD300C3 PO (10:03)
--- NOTE | 2021-05-12 10:04 | Discharge Summary ---
Discharge Summary Hospital Course Was the Problem List Reviewed?: Yes Problems/Dx: (1) Cellulitis of left foot Status: Acute (2) Diabetic foot ulcer Status: Acute (3) Ischemic toe Status: Acute (4) Severe sepsis Hospital Course Date of Admission: May 10, 2021 at 17:42 Admission Diagnosis : Family Physician/Provider: [facility] Date of Discharge: 05/12/21 Discharge Diagnosis: Severe sepsis, left foot cellulitis, severe PVD s/p intervention Dr Salinas [facility] Hospital Course: Pt is a 50yoCM who was sent to the ED by Dr. Corona in the evening of 05/09/2021 with a chief complaint of ischemic and purple 3rd toe on his left foot and hypotension. He also complains of chills, nausea and vomiting with uncontrolled blood sugars over 600 for the past 3 days. He does have a history of severe peripheral artery disease and has bilateral saphenous femoral artery stents as well as ballooning in his left lower extremity. The pt was admitted to ICU 05/10/2021 for intensive care and management of his toe and HHS with IV insulin, abx and fluids. Cardiology also consulted the pt and performed interventional angiography to his LLE with stent placement on 05/11/2021 Surgery also consulted the pt and determined amputation of the left 3rd toe will be needed as well as debridement of a chronic diabetic ulcer on the plantar surface which is planned as out patient service. Patient will be D/C today (05/12/2021). He states that his has bone cancer and he wishes to spend time with her and also discuss with her plans for his future care. He states that he has an adequate supply of insulin at home to control his blood sugar. CORNELL CASTILLO Labs and Pending Lab Test: Laboratory Tests 05/11/21 10:05: Glucometer 147H 05/11/21 11:12: Glucometer 104 05/11/21 12:55: Glucometer 141H 05/11/21 13:59: Glucometer 125H 05/11/21 15:09: Glucometer 129H 05/11/21 16:05: Glucometer 123H 05/11/21 17:05: Glucometer 96 05/11/21 20:47: Glucometer 152H 05/12/21 06:03: Glucometer 143H 05/12/21 07:17: White Blood Count 11.9H, Red Blood Count 3.01L, Hemoglobin 8.7L, Hematocrit 27L, Mean Corpuscular Volume 89, Mean Corpuscular Hemoglobin 29, Mean Corpuscular Hemoglobin Concent 33, Red Cell Distribution Width 14.1, Platelet Count 200, Mean Platelet Volume 9.5, Immature Granulocyte % (Auto) 1, Neutrophils (%) (Auto) 79H, Lymphocytes (%) (Auto) 12, Monocytes (%) (Auto) 7, Eosinophils (%) (Auto) 1, Basophils (%) (Auto) 0, Neutrophils # (Auto) 9.4H, Lymphocytes # (Auto) 1.4, Monocytes # (Auto) 0.8, Eosinophils # (Auto) 0.2, Basophils # (Auto) 0.0, Immature Granulocyte # (Auto) 0.1, Sodium Level 136, Potassium Level 3.9, Chloride Level 107, Carbon Dioxide Level 18L, Anion Gap 11, Blood Urea Nitrogen 20H, Creatinine 0.90, Estimat Glomerular Filtration Rate 90, BUN/Creatinine Ratio 22, Glucose Level 162H, Calcium Level 7.9L, Corrected Calcium 9.1, Total Bilirubin 0.4, Aspartate Amino Transf (AST/SGOT) 13, Alanine Aminotransferase (ALT/SGPT) 9, Alkaline Phosphatase 106, Total Protein 5.6L, Albumin 2.5L, Vancomycin Level Trough 18.2 Microbiology 05/10/21 MRSA Screen - Final, Complete MRSA not isolated 05/10/21 Blood Culture - Preliminary, Resulted No growth Home Meds Active Promethazine Tablet (Promethazine HCl) 25 Mg Tablet 25 Mg PO Q6H PRN Hydrocodone-Acetamin 7.5-325 (Hydrocodone/Acetaminophen) 1 Each Tablet 1 Each PO Q6H Cefdinir 300 Mg Capsule 300 Mg PO BID Reported NovoLIN R Flexpen (Insulin Regular, Human) 100 Unit/1 Ml Insuln.pen 18 Unit SQ AC Gabapentin 600 Mg Tablet 600 Mg PO QID Famotidine 40 Mg Tablet 40 Mg PO HS Aspirin 81 Mg Tab.chew 81 Mg PO DAILY Omeprazole 40 Mg Capsule.dr 40 Mg PO DAILY Simvastatin 40 Mg Tablet 40 Mg PO DAILY Lisinopril 2.5 Mg Tablet 2.5 Mg PO DAILY Clopidogrel (Clopidogrel Bisulfate) 75 Mg Tablet 75 Mg PO DAILY Maureenaglpetr Claypen U-100 (Insulin Glargine,Hum.rec.anlog) 100 Unit/1 Ml Insuln.pen 18 Unit SQ DAILY Assessment/Pt Instructions [facility] [address] Acosta for outpatient toe amputation Discharge Planning: <30 minutes discharge planning Discharge Instructions Discharge Diet: ADA Diet Discharge Physical Examination Vital Signs Vital Signs Date Time Temp Pulse Resp B/P (MAP) Pulse Ox O2 Delivery O2 Flow Rate FiO2 05/12/21 09:24 37.7 05/12/21 08:00 97 22 124/70 Room Air 05/12/21 04:00 95 05/11/21 18:28 2.00 05/10/21 16:36 96 General Appearance: No Apparent Distress, WD/WN, Chronically ill Allergies: Coded Allergies: Fish Containing Products (Verified Allergy, Severe, 02/08/21) "BLACKS OUT" lidocaine (Verified Allergy, Unknown, 02/08/21) FACE SWELLS FROM DENTAL PROCEDURE prednisolone (Verified Allergy, Unknown, 04/24/19) Discharge Summary Date of Admission May 10, 2021 at 17:42 Date of Discharge Discharge Date: May 12, 2021 Admission Diagnosis Assessment: Severe sepsis Left foot cellulitis with gangrene Diabetes [id number] non-DKA bed hyperosmolar hyperglycemic nonketotic state Severe peripheral vascular stenosis status post intervention by Dr. Salinas Profound dehydration Plan: Insulin drip IV antibiotics Dr. ACOSTA consult Dr. Salinas consult HARVEY LANDAVERDE DO May 12, 2021 10:04
--- NOTE | 2021-05-12 10:27 | Cardiology Progress Note ---
Subjective Date Seen by Provider: May 12, 2021 Time Seen by Provider: 10:22 Subjective/Events-last exam Patient is in bed, still complaining of pain in his foot, no chest pain. I had a long discussion with him regarding surgery and amputation, he is asking to go home and he will be back to the hospital for the surgery Review of Systems General: No Chills, No Night Sweats, No Fatigue, No Malaise, No Appetite, No Other HEENT: No Head Aches, No Visual Changes, No Eye Pain, No Ear Pain, No Dysphasia, No Sinus Congestion, No Post Nasal Drip, No Sore Throat, No Other Pulmonary: Dyspnea; No Cough, No Pleuritic Chest Pain, No Other Cardiovascular: Edema; No: Chest Pain, Palpitations, Orthopnea, Paroxysmal Noc. Dyspnea, Lt Headedness, Other Focused Exam Lactate Level 05/10/21 16:50: Lactic Acid Level 2.02*H 05/10/21 18:40: Lactic Acid Level 1.38 Objective-Cardiology Exam Last Set of Vital Signs Vital Signs 05/10/21 05/11/21 05/12/21 05/12/21 05/12/21 16:36 18:28 04:00 09:24 10:00 Temp 37.7 Pulse 100 Resp 15 B/P (MAP) 146/84 Pulse Ox 95 O2 Delivery Room Air O2 Flow Rate 2.00 FiO2 96 I&O Intake and Output 05/12/21 00:00 Intake Total 1517.5 ml Output Total 1500 ml Balance 17.5 ml Intake Oral 540 ml IV Total 977.5 ml Output Urine Total 1500 ml General: Alert, Oriented X3, Cooperative HEENT: Atraumatic, PERRLA Neck: Supple, No JVD, No Thyromegaly Lungs: Clear to Auscultation, Normal Air Movement Heart: Regular Rate, Normal S1, Normal S2, No Murmurs Abdomen: Normal Bowel Sounds, Soft, No Tenderness, No Hepatosplenomegaly, No Masses Extremities: No Clubbing, No Cyanosis, No Edema, Normal Pulses, No Tenderness/Swelling Skin: No Rashes, No Breakdown, No Significant Lesion Neuro: Normal Gait, Normal Speech, Strength at 5/5 X4 Ext, Normal Tone, Sensation Intact Psych/Mental Status: Mental Status NL, Mood NL Results Lab Laboratory Tests 05/12/21 07:17 A/P-Cardiology Admission Diagnosis Subacute ischemic foot Peripheral arterial disease Hypertension Hyperlipidemia Assessment/Plan Subacute ischemic toe. Ischemic foot. Angiogram and angioplasty to the posterior tibial artery and peroneal artery was done yesterday with excellent results. Patient will need amputation of his toe and aggressive antibiotic, patient has spoken to Dr. Acosta and he declined the surgery, patient insisted on going home and he reported that he will be back to the hospital in 1 to 2 days for the surgery. Peripheral arterial disease, History of bilateral stenting done in [employer] with Dr. Tavo Pruitt, developed nonhealing ulcer to [facility], Underwent peripheral angiogram on 02/08/21 with successful complex intervention on the left side using Supera stent to the mid SFA and balloon angioplasty to the tibioperoneal trunk, posterior tibial, peroneal artery and anterior tibial arteries with excellent results. Totally occluded stent in the mid right SFA reconstructed by collateral with slow flow. Angiogram done on February 22, 2021 showing total occlusion of the right SFA with an old stent in the midportion successful balloon angioplasty then deployment of Supera 6 x 100 overlapping with the old stent in the mid SFA with excellent results, moderate to severe stenosis of the proximal and mid right anterior tibial artery, moderate disease of the posterior tibial artery. Evaluation of the stent of the left SFA showed patent stent with good brisk flow down to the trifurcation. Peripheral angiogram was done on May 11, 2021 showing severe stenosis in the tibioperoneal trunk, posterior tibial and peroneal artery, successful balloon angioplasty to the 3 arteries with excellent results, the anterior tibial artery is tapered down into very small artery. Evaluation at the foot level after the intervention showing excellent two-vessel runoff down to the foot. 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 MRI brain done 02/15/21 showing acute lacunar infarct at lateral edge of left thalmus. Maintained on ASA and Plavix. Lexiscan stress test showed no significant ischemia or infarction. Continue to monitor Echocardiogram was done in September 2020 showing normal LV size, EF 55 to 65%, left atrium 4.34 cm, PA pressure 35 to 40 mmHg. Hypertension, home medication monitor blood per Orthostatic tachycardia, his baseline is sinus tachycardia but patient reported that his heart rate become fast and he was diagnosed with POTS as an outpatient. Maintained on low dose beta elie, continue to monitor. Hyperlipidemia, continue to monitor lipids Diabetes mellitus, brittle, followed by primary care physician History of multiple eye surgeries secondary to bleeding and diabetes, significant vision loss, followed with Dr. Checo Araiza Bilateral carotid stenosis, mild disease, ultrasound was done August 2020. Continue to monitor Tobaccoism, educated on smoking cessation ANSELMO DAVID MD May 12, 2021 10:27
--- NOTE | 2021-05-12 14:43 | Progress Note ---
CORNELL CASTILLO 05/12/21 1443: Progress Note Pt is a 50yoCM who was sent to the ED by Dr. Corona in the evening of 05/09/2021 with a chief complaint of ischemic and purple 3rd toe on his left foot and hypotension. He also complains of chills, nausea and vomiting with uncontrolled blood sugars over 600 for the past 3 days. He does have a history of severe peripheral artery disease and has bilateral saphenous femoral artery stents as well as ballooning in his left lower extr emity. The pt was admitted to ICU 05/10/2021 for intensive care and management of his toe and HHS with IV insulin, abx and fluids. Cardiology also consulted the pt and performed interventional angiography to his LLE with stent placement on 05/11/2021 Surgery also consulted the pt and determined amputation of the left 3rd toe will be needed as well as debridement of a chronic diabetic ulcer on the plantar surface which is planned as out patient service. Patient will be D/C today (05/12/2021). He states that his has bone cancer and he wishes to spend time with her and also discuss with her plans for his future care. He states that he has an adequate supply of insulin at home to control his blood sugar. MELANY LANDAVERDE DO 05/13/21 0631: Supervisory-Addendum Brief Verification & Attestation Participated in pt care: history, MDM, physical Personally performed: exam, history, MDM, supervision of care Care discussed with: Medical Student Procedures: n/a Results interpretation: Verified all documentation Verification and Attestation of Medical Student E/M Service A medical student performed and documented this service in my presence. I reviewed and verified all information documented by the medical student and made modifications to such information, when appropriate. I personally performed the physical exam and medical decision making. Melany Landaverde May 13, 2021,06:31 CORNELL CASTILLO May 12, 2021 14:43 MELANY LANDAVERDE DO May 13, 2021 06:31
== END 2021-05-12 16:35 | disposition home or self-care (01) | DRG 853 ==
LOC: EDUNIT# 16:25 → ER 16:27 → ICU 17:42
PROVIDERS: ADMIT Internal Medicine; ATTEND Internal Medicine
PROC: 047S3ZZ Dilation of Left Posterior Tibial Artery, Percutaneous Approach (ICD-10-PCS; principal; 2021-05-11)
PROC: 047U3ZZ Dilation of Left Peroneal Artery, Percutaneous Approach (ICD-10-PCS; 2021-05-11)
PROC: 047N3ZZ Dilation of Left Popliteal Artery, Percutaneous Approach (ICD-10-PCS; 2021-05-11)
PROC: B41G1ZZ Fluoroscopy of Left Lower Extremity Arteries using Low Osmolar Contrast (ICD-10-PCS; 2021-05-11)
PROC: B41F1ZZ Fluoroscopy of Right Lower Extremity Arteries using Low Osmolar Contrast (ICD-10-PCS; 2021-05-11)
DX: A41.9 Sepsis, unspecified organism (principal); E11.00 Type 2 diabetes mellitus with hyperosmolarity without nonketotic hyperglycemic-hyperosmolar coma (NKHHC); L03.116 Cellulitis of left lower limb; I70.262 Atherosclerosis of native arteries of extremities with gangrene, left leg; L97.829 Non-pressure chronic ulcer of other part of left lower leg with unspecified severity; I69.351 Hemiplegia and hemiparesis following cerebral infarction affecting right dominant side; E11.51 Type 2 diabetes mellitus with diabetic peripheral angiopathy without gangrene; E11.621 Type 2 diabetes mellitus with foot ulcer; Z89.022 Acquired absence of left finger(s); L97.529 Non-pressure chronic ulcer of other part of left foot with unspecified severity; R65.20 Severe sepsis without septic shock; E86.0 Dehydration; Z95.820 Peripheral vascular angioplasty status with implants and grafts; J45.909 Unspecified asthma, uncomplicated; E78.00 Pure hypercholesterolemia, unspecified; E78.5 Hyperlipidemia, unspecified; I10 Essential (primary) hypertension; K21.9 Gastro-esophageal reflux disease without esophagitis; I65.23 Occlusion and stenosis of bilateral carotid arteries; F17.210 Nicotine dependence, cigarettes, uncomplicated; Z20.822 Contact with and (suspected) exposure to COVID-19; Z79.82 Long term (current) use of aspirin; Z79.4 Long term (current) use of insulin; Z88.8 Allergy status to other drugs, medicaments and biological substances; Z88.4 Allergy status to anesthetic agent; Z91.013 Allergy to seafood; R09.02 Hypoxemia
CPT/HCPCS: 36248; 36415; 71045; 73620; 75716; 80053; 80202; 82947; 83036; 83605; 83735; 84100; 84145; 85007; 85025; 85027; 85379; 85610; 85730; 87040; 87081; 87636; 93005; 96360